=== PATIENT | female | born 2000 | race Caucasian/White ===

== ENCOUNTER 2022-05-31 10:12 | Outpatient (CLI) | payer BC, SELFPAY ==
[2022-05-31 13:38] LABS: Iron* 104 ug/dL (37-170)
[2022-05-31 13:46] LABS: Basophils Absolute Auto 0.04 K/uL (0.00-0.30); Basophils Percent Auto 0.6 % (0.0-3.0); Eosinophils Absolute Auto 0.09 K/uL (0.00-0.50); Eosinophils Percent Auto 1.4 % (0.0-7.0); Hematocrit 44.5 % (33.0-51.0); Hemoglobin* 14.7 gm/dL (12.0-16.0); Immature Granulocytes Abs Auto 0.01 K/uL (0.00-0.30); Lymphocytes Absolute Auto 1.75 K/uL (0.90-2.90); Lymphocytes Percent Auto 27.1 % (20-44); Mean Corpuscular HGB Conc 33 gm/dL (32-36); Mean Corpuscular Hemoglobin 28 pg (26-34); Mean Corpuscular Volume 86 fL (80-100); Monocytes Percent Auto 6.2 % (0.0-11.0); Neutrophils Absolute Auto 4.17 K/uL (1.7-7.0); Neutrophils Percent Auto 64.5 % (42.0-72.0); Platelet Count* 291 K/uL (140-440); RDW Coefficient of Variation % 12.1 % (11.5-15.5); White Blood Count* 6.46 K/uL (4.50-11.00)
[2022-05-31 13:48] LABS: Percent Iron Saturation 23 % (20-50); Total Iron Binding Capacity 450 ug/dL (265-497)
[2022-05-31 13:53] LABS: Slide Review Reflex No
== END 2022-05-31 10:13 | disposition home or self-care (01) ==
PROVIDERS: PCP Nurse Practitioner Family; Visit Provider Nurse Practitioner Family
DX: R53.83 Other fatigue (principal); M25.562 Pain in left knee
CPT/HCPCS: 36415; 83540; 83550; 84443; 85025

== ENCOUNTER 2022-07-30 20:08 | Emergency (ER) | payer BC, SELFPAY ==
[2022-07-30 20:30] VITALS: BP 116/78; PULSE 89; RESP 18; TEMP 36.6; O2SAT 99
[2022-07-30 20:45] VITALS: O2SAT 99
[2022-07-30] MEDS: 0.9 % SODIUM CHLORIDE 1000 ml 1,000 ML IV (21:00)
--- NOTE | 2022-07-30 21:13 | ED.GENADULT ---
HPI - General Adult General Chief complaint: Diarrhea Stated complaint: Blood in Stool Time Seen by Provider: 07/30/22 20:57 History of Present Illness HPI narrative: 21-year-old woman presenting to the emergency department with her mother, father in the waiting room, with concern of bloody stool. She has had the amount of blood she says that would be atypical for a hemorrhoid or maybe an anal fissure. Painless. This occurred about 3 hours prior to this interview. Not reporting lightheadedness shortness of breath. Was evaluated in Urgent Care and directed here. Was seen yesterday in clinic for some medication adjustments related to anxiety and insomnia I believe. At that time she also noted persistent abdominal bloating. There is a chronic IBS-type history is being referred to GI. Years ago she did have severe GERD. She continues on pantoprazole. She has a history of bloating with anything she eats. Notes her stomach to be pretty tight following ingestion of any food. She also ruefully notes that she does like to eat. Apparently in clinic was thought to possibly be constipated but she denies that. Normal bowel movements. She often has 4-5 a day. Today she had produced a few normal ?turds? and then there was a gush of blood as if she was peeing blood from her butt. Upon wiping then though there was not any blood there again she says like one might expect if it was hemorrhoidal bleeding. Also since last night she really has been having trouble urinating. Thought to be retaining. Spending time and straining and not getting any urine out. Therefore does not describe any dysuria or frequency. She has not had any fever. Is having some low abdominal pain/cramping. No fever. Family history without inflammatory bowel disorders Related Data Home Medications Medication Instructions Recorded Confirmed albuterol sulfate 90 mcg/actuation g inhalation 05/31/22 07/30/22 aerosol inhaler (Ventolin HFA) atomoxetine 100 mg capsule 100 mg PO QAM 05/31/22 07/30/22 cholecalciferol (vitamin D3) 50 50 mcg PO QDAY 05/31/22 07/30/22 mcg (2,000 unit) capsule escitalopram oxalate 20 mg tablet 20 mg PO 05/31/22 07/30/22 etonogestrel 68 mg subdermal 1 implant subdermal ONCE 05/31/22 07/30/22 implant (Nexplanon) fluticasone propionate 50 applicator inhalation 05/31/22 07/30/22 mcg/actuation blister powder for inhalation (Flovent Diskus) pantoprazole 40 mg tablet,delayed 40 mg PO QAM 06/28/22 07/30/22 release Previous Rx's Medication Instructions Recorded levothyroxine 100 mcg tablet 100 mcg PO QDAY 90 days #90 tabs 06/28/22 propranolol 60 mg capsule,24 60 mg PO ONCE 90 days #90 caps 07/16/22 hr,extended release mirtazapine 30 mg tablet (Remeron) 30 mg PO QDAY 30 days #30 tabs 07/29/22 Allergies Allergy/AdvReac Type Severity Reaction Status Date / Time bee venom protein (honey bee) Allergy Unknown Verified 07/29/22 11:12 latex Allergy Unknown Verified 07/29/22 11:12 influenza virus vacc AdvReac Verified 07/29/22 11:12 trivalent, who Review of Systems Status of ROS: Reports: 10 or more systems reviewed and unremarkable except as noted in History and below [facility] Medical History ADD (attention deficit disorder) ADHD Anxiety Congenital hypothyroidism Constipation Fatigue GERD (gastroesophageal reflux disease) Left knee pain Tachycardia Surgical History Asthma H/O hand surgery Social History Narrative: Single. No children. Non-smoker. No alcohol. No illicit drug use. Smoking Status: Never smoker Do you use any of these nicotine containing products: None Second hand tobacco smoke exposure: No How often do you have a drink containing alcohol: never How often do you have six or more drinks on one occasion: Never AUDIT-C Alcohol total score: 0 Non-prescribed substance use: denies use Little interest or pleasure in doing things: not at all Feeling down, depressed, or hopeless: not at all Exam Narrative: Exam Narrative: Pleasant. Maximo in conversation. No distress. Cranial nerves 2-12 intact Skin is warm and dry. Extremities are well perfused moving them all without difficulty and no peripheral edema. Lungs are clear. Cardiovascular with regular rate and rhythm Abdomen is soft. She is sore across the low abdomen suprapubic area really but a little more so in the left pelvic/adnexal area. No peritoneal signs. We discussed /perineal/anal exam but ultimately she preferred to follow this up in primary care. She is not having any active bleeding at this point or sense/need to have a bowel movement. Const: Vital Signs, click to edit/add: Vital Signs - 24 hr 07/30/22 20:30 07/31/22 01:15 07/31/22 01:15 Temperature 97.9 F 97.9 F 97.9 F Pulse Rate [Right Pulse Oximeter] 89 85 85 Respiratory Rate 18 18 18 Blood Pressure [Ri ght Upper Arm] 116/78 123/74 123/74 Pulse Oximetry 99 99 Oxygen Delivery Me thod Room Air Room Air 07/30/22 22:30 07/31/22 00:00 07/30/22 20:45 Temperature Pulse Rate [Right Pulse Oximeter] 80 79 Respiratory Rate 18 18 Blood Pressure [Ri ght Upper Arm] 118/70 125/74 Pulse Oximetry 99 99 99 Oxygen Delivery Me thod Room Air Room Air Documenting provider has reviewed patient's vital signs: yes Course Course Hospital Course: IV was established. Did receive normal saline. Did not require any other interventions. Reevaluation(s) Reevaluation #1: Continued generally well Vital Signs Vital signs: Initial Vital Signs Temperature 97.9 F 07/30/22 20:30 Temperature Source Temporal Artery Scan 07/30/22 20:30 Pulse Rate 89 07/30/22 20:30 Respiratory Rate 18 07/30/22 20:30 Blood Pressure 116/78 07/30/22 20:30 Blood Pressure Mean 90 07/30/22 20:30 Blood Pressure Position Sitting 07/30/22 20:30 Pulse Oximetry 99 07/30/22 20:30 Oxygen Delivery Method 07/30/22 20:30 Vital Signs Temperature 97.9 F 07/30/22 20:30 Pulse Rate 89 07/30/22 20:30 Respiratory Rate 18 07/30/22 20:30 Blood Pressure 116/78 07/30/22 20:30 Pulse Oximetry 99 07/30/22 20:30 Oxygen Delivery Method 07/30/22 20:30 Temperature 97.9 F 07/31/22 01:15 Pulse Rate 85 07/31/22 01:15 Respiratory Rate 18 07/31/22 01:15 Blood Pressure 123/74 07/31/22 01:15 Pulse Oximetry 99 07/31/22 01:15 Oxygen Delivery Method 07/31/22 01:15 Medical Decision Making MDM Narrative Medical decision making narrative: Senna could be multiple things going on here. History complicated by bowel symptoms. The bleeding does not appear to have continued. Has been straining in the form of efforts urination. CBC with white count a little bit elevated at 14.6. Hemoglobin reassuring this this is only 1 measurement. Urinalysis cloudy with lysed blood. Only small amount of urine was produced. Would note that postvoid bladder scan for 19 mL. Diverticular bleed still in differential with history of constipation though she denies constipation at this time. May be separate from presentation not distinct from ureteral colic as well. My review of CT IV contrast appears to show some edematous change in the uterus. Radiology over-read noting adenomyosis as differential in the lower uterine segment. Otherwise unremarkable. Surely the uterine symptoms do not explain the rectal bleeding but could explain the pelvic discomfort I suppose. Claudia does not have menses but checks regularly. Has Nexplanon. Lab Data Labs: Lab Results 07/30/22 07/30/22 07/30/22 Range/Units 21:00 21:00 21:00 WBC 14.62 H (4.50-11.00) K/uL RBC 5.10 (4.00-5.20) m/uL Hgb 14.5 (12.0-16.0) gm/dL Hct 43.8 (33.0-51.0) % MCV 86 (80-100) fL MCH 28 (26-34) pg MCHC 33 (32-36) gm/dL RDW Coeff of Sharath 12.5 (11.5-15.5) % Plt Count 283 (140-440) K/uL Neut % (Auto) 80.8 H (42.0-72.0) % Lymph % (Auto) 13.3 L (20-44) % [place] % (Auto) 5.1 (0.0-11.0) % Eos % (Auto) 0.4 (0.0-7.0) % Baso % (Auto) 0.2 (0.0-3.0) % Neut # (Auto) 11.80 H (1.7-7.0) K/uL Lymph # (Auto) 1.90 (0.90-2.90) K/uL [place] # (Auto) 0.70 (0.00-0.90) K/UL Eos # (Auto) 0.10 (0.00-0.50) K/uL Baso # (Auto) 0.00 (0.00-0.30) K/uL Abs Immat Gran (auto) 0.03 (0.00-0.30) K/uL INR 0.97 (0.91-1.10) APTT 28 (23-33) Seconds Sodium 141 (135-149) mmol/L Potassium 3.8 (3.6-5.1) mmol/L Chloride 106 (96-114) mmol/L Carbon Dioxide 24 (20-32) mmol/L BUN 15 (5-24) mg/dL Creatinine 0.7 (0.5-1.5) mg/dL Estimated GFR 127 ml/min Glucose 116 H (60-115) mg/dL Calcium 9.2 (8.4-10.6) mg/dL Total Bilirubin 0.4 (0.1-1.5) mg/dL Direct Bilirubin 0.3 (0.0-0.5) mg/dL AST 23 (12-35) U/L ALT 11 (4-35) U/L Alkaline Phosphatase 69 (40-150) U/L C-Reactive Protein < 0.5 L (0.5-1.0) mg/dL Total Protein 8.0 (6.0-8.3) g/dL Albumin 4.7 (3.3-5.0) g/dL HCG, Qual (Negative) Urine Color (Yellow) Urine Appearance (Clear) Urine pH (5.0-8.5) Ur Specific [place] (1.000-1.030) Urine Protein (Negative) Urine Glucose (UA) (Negative) Urine Ketones (Negative) Urine Blood (Negative) Urine Nitrite (Negative) Urine Bilirubin (Negative) Urine Urobilinogen (0.2-1.0) Ur Leukocyte Esterase (Negative) Urine RBC (0-2) Urine WBC (0-5) Ur Squamous Epith Cells (None-Few) Urine Bacteria (None) 07/30/22 Range/Units 21:50 WBC (4.50-11.00) K/uL RBC (4.00-5.20) m/uL Hgb (12.0-16.0) gm/dL Hct (33.0-51.0) % MCV (80-100) fL MCH (26-34) pg MCHC (32-36) gm/dL RDW Coeff of Sharath (11.5-15.5) % Plt Count (140-440) K/uL Neut % (Auto) (42.0-72.0) % Lymph % (Auto) (20-44) % [place] % (Auto) (0.0-11.0) % Eos % (Auto) (0.0-7.0) % Baso % (Auto) (0.0-3.0) % Neut # (Auto) (1.7-7.0) K/uL Lymph # (Auto) (0.90-2.90) K/uL [place] # (Auto) (0.00-0.90) K/UL Eos # (Auto) (0.00-0.50) K/uL Baso # (Auto) (0.00-0.30) K/uL Abs Immat Gran (auto) (0.00-0.30) K/uL INR (0.91-1.10) APTT (23-33) Seconds Sodium (135-149) mmol/L Potassium (3.6-5.1) mmol/L Chloride (96-114) mmol/L Carbon Dioxide (20-32) mmol/L BUN (5-24) mg/dL Creatinine (0.5-1.5) mg/dL Estimated GFR ml/min Glucose (60-115) mg/dL Calcium (8.4-10.6) mg/dL Total Bilirubin (0.1-1.5) mg/dL Direct Bilirubin (0.0-0.5) mg/dL AST (12-35) U/L ALT (4-35) U/L Alkaline Phosphatase (40-150) U/L C-Reactive Protein (0.5-1.0) mg/dL Total Protein (6.0-8.3) g/dL Albumin (3.3-5.0) g/dL HCG, Qual Negative (Negative) Urine Color Yellow (Yellow) Urine Appearance Cloudy A (Clear) Urine pH 5.5 (5.0-8.5) Ur Specific [place] >= 1.030 (1.000-1.030) Urine Protein Negative (Negative) Urine Glucose (UA) Negative (Negative) Urine Ketones Negative (Negative) Urine Blood Trace-lysed A (Negative) Urine Nitrite Negative (Negative) Urine Bilirubin Negative (Negative) Urine Urobilinogen 0.2 (0.2-1.0) Ur Leukocyte Esterase Negative (Negative) Urine RBC 0-2 (0-2) Urine WBC 0-2 (0-5) Ur Squamous Epith Cells Few (None-Few) Urine Bacteria Few A (None) Discharge Plan Discharge Clinical Impression: Adenomyosis of uterus, Hematochezia Patient Disposition: Home w/ Parent or Adult Condition: Stable Additional Instructions: Continue to focus on hydration Return for marked increase in persistent pain, increasing bleeding, associated lightheadedness/shortness of breath. Yes, sounds like it is time to schedule with Gastroenterology. Follow up in primary care or Obgyn to discuss what you might like to do about what appears to be adenomyosis of your uterus and whether this might be contributing to some of your symptoms. Prescriptions: No Action escitalopram oxalate 20 mg tablet 20 mg PO atomoxetine 100 mg capsule 100 mg PO QAM Flovent Diskus 50 mcg/actuation blister with device inhalation albuterol sulfate [Ventolin HFA] 90 mcg/actuation HFA aerosol inhaler inhalation Nexplanon 68 mg implant 1 implant subdermal ONCE Rx Instructions: as a single dose cholecalciferol (vitamin D3) 50 mcg (2,000 unit) capsule 50 mcg PO QDAY pantoprazole 40 mg tablet,delayed release (DR/EC) 40 mg PO QAM levothyroxine 100 mcg tablet 100 mcg PO QDAY 90 Days Qty: 90 3RF mirtazapine [Remeron] 30 mg tablet 30 mg PO QDAY 30 Days Qty: 30 1RF propranolol 60 mg capsule,extended release 24 hr 60 mg PO ONCE 90 Days Qty: 90 3RF Follow Up/Referrals: Yoli Mendes, COMMERCIAL CREDIT REVIEWER, FLIGHT HOSTESS [Primary Care Provider] - Stand Alone Forms: Relatient Info Instructions
[2022-07-30 21:23] LABS: Basophils Percent Auto 0.2 % (0.0-3.0); Eosinophils Percent Auto 0.4 % (0.0-7.0); Hematocrit 43.8 % (33.0-51.0); Hemoglobin* 14.5 gm/dL (12.0-16.0); Immature Granulocytes Abs Auto 0.03 K/uL (0.00-0.30); Lymphocytes Percent Auto 13.3 % (20-44); Mean Corpuscular HGB Conc 33 gm/dL (32-36); Mean Corpuscular Hemoglobin 28 pg (26-34); Mean Corpuscular Volume 86 fL (80-100); Monocytes Percent Auto 5.1 % (0.0-11.0); Neutrophils Percent Auto 80.8 % (42.0-72.0); Platelet Count* 283 K/uL (140-440); RDW Coefficient of Variation % 12.5 % (11.5-15.5); Slide Review Reflex No; White Blood Count* 14.62 K/uL (4.50-11.00)
--- OUTSIDE RECORDS SUMMARY | 2022-07-30 21:35 | XMS_ITS | Clinical Summary ---
:2000 Author Organization [facility] [place] [address] Care Team Providers Name Role Phone Jose oJhnson MD Primary Care Provider Allergies Active Allergy Reactions Severity Noted Date Comments Latex Rash Medium 08/22/2020 Venom-Honey Bee Anaphylaxis High 07/18/2019 Medications Not on file Active Problems Problem Noted Date Anxiety state, unspecified 06/09/2007 Attention deficit disorder with hyperactivity(314.01) 06/09/2007 Unspecified disturbance of conduct 06/09/2007 Social History Tobacco Use Types Packs/Day Years Used Date Never Assessed Sex Assigned at Date Recorded Not on file Last Filed Vital Signs Vital Sign Reading Time Taken Comments Blood Pressure - - Pulse 112 11/13/2021 1:51 PM CSR 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 Temperature 37.1 ??C (98.8 ??F) 11/13/2021 1:51 PM CSR TECHNICIAN Respiratory Rate - - Oxygen Saturation 99% 11/13/2021 1:51 PM CSR TECHNICIAN Inhaled Oxygen Concentration - - Weight - - Height - - Body Mass Index - - Plan of Treatment Health Maintenance Due Date Last Done Comments Well Child Check for age 3-20 07/03/2004 HPV series for age 9-26 (1 - 2012 2-dose series) Tdap 2012 Depression screening for age 0908/03/2013 12+ Chlamydia for age 16-24 2017 BMI (ht and wt on same day) 2019 for age 18+ Hepatitis C screening for age 0908/03/2019 18-79 Tetanus booster 2021 COVID-19 vaccine series (3 - 08/20/2021 03/20/2021, Booster for Moderna series) 02/20/2021 Influenza for age 9-49 07/15/2022 Meningococcal series for age Aged Out No longer eligible based 11-21 on patient's age to complete this to pic Results Not on filefrom Last 3 Months Insurance Payer Benefit Plan / Subscriber ID Effective Dates Phone Addre ss Type Group [employer] HP [id number] Effective for PO VIRIDIANA X 5200 all dates KAYLIN HEBERT [id number] Care Teams Slat Basket Maker Machine Relationship Specialty Start Date End Date Jose Johnson MD PCP - General 05/12/[address] [place] [address] [phone]
[2022-07-30 21:36] LABS: Albumin* 4.7 g/dL (3.3-5.0); Chloride* 106 mmol/L (96-114)
[2022-07-30 21:37] LABS: INR 0.97 (0.91-1.10); Partial Thromboplastin Time* 28 Seconds (23-33); Potassium* 3.8 mmol/L (3.6-5.1); Prothrombin Time 13.3 Seconds; Sodium* 141 mmol/L (135-149)
[2022-07-30 21:39] LABS: Aspartate Amino Transferase* 23 U/L (12-35); Bilirubin Direct* 0.3 mg/dL (0.0-0.5); Bilirubin Total* 0.4 mg/dL (0.1-1.5); Carbon Dioxide* 24 mmol/L (20-32); Creatinine* 0.7 mg/dL (0.5-1.5); Estimated Glomerular Filt Rate 127 ml/min
[2022-07-30 21:40] LABS: Alanine Aminotransferase* 11 U/L (4-35); Alkaline Phosphatase* 69 U/L (40-150); Blood Urea Nitrogen* 15 mg/dL (5-24); Calcium* 9.2 mg/dL (8.4-10.6); Glucose* 116 mg/dL (60-115)
[2022-07-30 21:43] LABS: C Reactive Protein* < 0.5 mg/dL (0.5-1.0)
[2022-07-30 22:13] LABS: HCG Qualitative* Negative (Negative)
[2022-07-30 22:30] VITALS: BP 118/70; PULSE 80; RESP 18; O2SAT 99
[2022-07-30 22:38] LABS: Appearance Urine Cloudy (Clear); Bilirubin Urine Negative (Negative); Blood Urine Trace-lysed (Negative); Color Urine Yellow (Yellow); Glucose Urine Negative (Negative); Ketones Urine Negative (Negative); Leukocyte Esterase Urine Negative (Negative); Nitrite Urine Negative (Negative); Protein Urine Negative (Negative); Specific Gravity Urine >= 1.030 (1.000-1.030); Urobilinogen Urine 0.2 (0.2-1.0); pH Urine 5.5 (5.0-8.5)
[2022-07-30 22:46] LABS: Bacteria Urine Few; RBC Urine 0-2 (0-2); Squamous Epithelial Cell Urine Few (None-Few); WBC Urine 0-2 (0-5)
--- NOTE | 2022-07-30 23:08 | CRLHL7_ITS ---
For Patients: As a result of the Century Cures Act, medical imaging exams and procedure reports are released immediately into your electronic medical record. You may view this report before your referring provider. If you have questions, please contact your health care provider. INDICATION: Bloody stool. TECHNIQUE: CT abdomen and pelvis acquired with 83 cc Isovue 370 IV contrast. COMPARISON: None. FINDINGS: Lower chest: Unremarkable. Liver: Focal fatty infiltration adjacent to the falciform ligament. No suspicious masses. Gallbladder and bile ducts: Unremarkable. No stones or inflammation. No biliary ductal dilatation. Spleen: Unremarkable. Normal in size. No masses. Adrenal glands: Unremarkable. No nodules. Pancreas: Unremarkable. No mass or inflammation. Kidneys: Unremarkable. No suspicious masses, stones, or hydronephrosis. GI tract: Unremarkable. Normal in caliber. No sign of mass or inflammation. Normal appendix. Lymph nodes: No lymphadenopathy. Vasculature: Unremarkable. Omentum/Peritoneum/Abdominal Wall: Unremarkable. No sign of mass or infiltration. No free air or significant free fluid. Pelvis: Patchy low-attenuation involving the lower uterine segment. No pelvic masses. Bones: Unremarkable for age. IMPRESSION: 1. No acute abdominal or pelvic abnormality. 2. Patchy low-attenuation involving the lower uterine segment, nonspecific. Adenomyosis would be a differential consideration. Please note that all CT scans at this facility use dose modulation, iterative reconstruction, and/or weight-based dosing when appropriate to reduce radiation dose to as low as reasonably achievable. Dictated by Jomar Munson MD @ 07/31/2022 12:28:23 AM (Electronically Signed)
[2022-07-31] VITALS: BP 125/74; PULSE 79; RESP 18; O2SAT 99
[2022-07-31 01:15] VITALS: BP 123/74; PULSE 85; RESP 18; TEMP 36.6; O2SAT 99
== END 2022-07-31 01:16 | disposition home or self-care (01) ==
PROVIDERS: Emergency Provider Family Medicine; PCP Nurse Practitioner Family
DX: K92.1 Melena (principal); N80.0 Endometriosis of uterus
CPT/HCPCS: 36415; 74177; 76857; 80048; 80076; 81001; 84703; 85025; 85610; 85730; 86140; 87086; 94761; 96360; 99284; J7030; Q9967

== ENCOUNTER 2022-08-09 14:42 | Outpatient (CLI) | payer BC, SELFPAY ==
--- OUTSIDE RECORDS SUMMARY | 2022-08-09 14:44 | XMS_ITS | Clinical Summary ---
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 Temperature 37.1 ??C (98.8 ??F) 11/13/2021 1:51 PM ASSISTANT ASSOCIATE PROFESSOR Respiratory Rate - - Oxygen Saturation 99% 11/13/2021 1:51 PM ASSISTANT ASSOCIATE PROFESSOR Inhaled Oxygen Concentration - - Weight - - Height - - Body Mass Index - - Plan of Treatment Health Maintenance Due Date Last Done Comments HPV series for age 9-26 (1 - 2012 2-dose series) Tdap 2012 Depression screening for age 0908/03/2013 12+ Chlamydia for age 16-24 2017 BMI (ht and wt on same day) 2019 for age 18+ Hepatitis C screening for age 0908/03/2019 18-79 Tetanus booster 2021 COVID-19 vaccine series (3 - 08/20/2021 03/20/2021, Booster for Moderna series) 02/20/2021 Influenza for age 9-49 07/15/2022 Pap test for age 21-65 2022 Meningococcal series for age Aged Out No longer eligible based 11- on patient's age to complete this to pic Results Not on filefrom Last 3 Months Insurance Payer Benefit Plan / Subscriber ID Effective Dates Phone Addre ss Type Group [employer] HP [id number] Effective for PO VIRIDIANA X [id number] all dates KAYLIN HEBERT [id number] Care Teams Machine Maintenance Servicer Relationship Specialty Start Date End Date Jose Johnson MD PCP - General 05/12/[address] [place] [phone]
--- NOTE | 2022-08-09 15:00 | CRLHL7_ITS ---
For Patients: As a result of the Century Cures Act, medical imaging exams and procedure reports are released immediately into your electronic medical record. You may view this report before your referring provider. If you have questions, please contact your health care provider. INDICATION: Low-attenuation and CT, possible adenomyosis COMPARISON: CT 07/30/2022 TECHNIQUE: 2D rivera scale and color Doppler images were acquired of the pelvis using a transabdominal and transvaginal approach. FINDINGS: Sonographic images demonstrate a normal size and smooth outer contour of the uterus. Uterus measures 7.9 cm in length by 4.1 cm in AP diameter by 5.3 cm in transverse dimension. The myometrium has a normal uniform echotexture. The endometrial lining measures 2 mm in composite thickness. The right ovary measures 4.5 x 2.4 x 2.4 cm in size and the left ovary measures 2.6 x 1.3 x 1.6 cm. Incidental follicle right ovary measuring 1.6 x 1.0 x 1.6 cm. The ovaries demonstrate normal arterial and venous blood flow on color Doppler analysis. There are no suspicious fluid collections within the cul-de-sac. IMPRESSION: Normal pelvic ultrasound. Normal appearance of the endometrium. No evidence of adenomyosis. Dictated by Ramu Cornell MD @ 08/10/2022 12:07:06 PM (Electronically Signed)
== END 2022-08-09 14:43 | disposition home or self-care (01) ==
LOC: US 14:42
PROVIDERS: PCP Nurse Practitioner Family; Visit Provider Nurse Practitioner Family
DX: R94.8 Abnormal results of function studies of other organs and systems (principal)
CPT/HCPCS: 76830; 76856; 76857

== ENCOUNTER 2022-12-27 10:33 | Emergency (ER) | payer BC, SELFPAY ==
[2022-12-27 10:42] VITALS: BP 125/77; PULSE 86; RESP 20; TEMP 36.3; O2SAT 99
--- NOTE | 2022-12-27 12:01 | ED_ITS ---
HPI - Abdominal Pain General Chief Complaint: Abdominal Pain Stated Complaint: Upper abdominal pain, nausea Time Seen by Provider: 12/27/22 11:33 History of Present Illness HPI narrative: This 22-year-old female comes in reporting upper epigastric pain for the past 5 days or so. She states the pain is constant and sometimes increases significantly. She does report her pain at around 8/10 in severity. She states that she can tolerate food but it seems to be worse when taking food. She does take pantoprazole a for reflux symptoms but states that this pain is more down in her upper abdomen. She denies having any fevers or diarrhea. She has had some nausea but no vomiting. Related Data Home Medications Medication Instructions Recorded Confirmed albuterol sulfate 90 mcg/actuation g inhalation PRN 05/31/22 12/03/22 aerosol inhaler (Ventolin HFA) atomoxetine 100 mg capsule 100 mg PO QAM 05/31/22 12/27/22 cholecalciferol (vitamin D3) 50 50 mcg PO QDAY 05/31/22 12/27/22 mcg (2,000 unit) capsule escitalopram oxalate 20 mg tablet 20 mg PO DAILY 05/31/22 12/27/22 etonogestrel 68 mg subdermal 1 implant subdermal ONCE 05/31/22 12/27/22 implant (Nexplanon) fluticasone propionate 50 2 inh inhalation PRN 09/14/22 12/03/22 mcg/actuation blister powder for inhalation (Flovent Diskus) buspirone 10 mg tablet 10 mg PO BID 10/26/22 12/27/22 Previous Rx's Medication Instructions Recorded levothyroxine 100 mcg tablet 100 mcg PO QDAY 90 days #90 tabs 06/28/22 propranolol 60 mg capsule,24 60 mg PO ONCE 90 days #90 caps 07/16/22 hr,extended release lidocaine 4 % topical cream 1 applic topical TID 7 days #15 09/14/22 grams clonazepam 0.5 mg tablet 0.25 - 1 mg PO BID PRN anxiety #20 10/26/22 tabs pantoprazole 40 mg tablet,delayed 40 mg PO QAM 90 days #90 tabs 12/07/22 release ketorolac 10 mg tablet 10 mg PO Q8H 5 days #15 tabs 12/27/22 ondansetron 4 mg disintegrating 4 mg PO Q6H #20 tabs 12/27/22 tablet pantoprazole 40 mg tablet,delayed 40 mg PO DAILY #20 tabs 12/27/22 release Allergies Allergy/AdvReac Type Severity Reaction Status Date / Time bee venom protein (honey bee) Allergy Unknown Verified 12/27/22 10:46 latex Allergy Unknown Verified 12/27/22 10:46 influenza virus vacc AdvReac Verified 12/27/22 10:46 trivalent, who Review of Systems Status of ROS Reports: 10 or more systems reviewed and unremarkable except as noted in History and below Narrative Constitutional: No fevers, no weight gain or loss. Eyes: No discharge. No vision changes. HENT: No congestion, no sore throat, no ear pain. Cardiovascular: No chest pain, no palpitations. Respiratory: No shortness of breath, no wheezes, no cough. Gastrointestinal: No vomiting, no diarrhea. Upper epigastric abdominal pain. Nausea. Genitourinary: No dysuria, no hematuria. Musculoskeletal: Normal range of motion. Skin: No rashes, no pruritis. Neurological: No dizziness, weakness, sensory change, speech change. Endo/Heme/Allergies: No bruising or bleeding. No polydipsia. Pysch: no suicidality, no anxiety, no insomnia. All other systems reviewed and are negative. [facility] Medical History (Updated 12/27/22 @ 13:24 by Tulio Hartmann MD) ADD (attention deficit disorder) ADHD Anxiety Asthma Congenital hypothyroidism Constipation Depression Fatigue GERD (gastroesophageal reflux disease) Left knee pain Tachycardia Surgical History (Updated 08/16/22 @ 17:27 by Rosette Weaver PA-C) H/O hand surgery Family History (Updated 08/16/22 @ 17:28 by Rosette Weaver PA-C) Family/Other Stroke Father High blood pressure Mother Osteoporosis Family/Other Cancer Social History Narrative: Single. No children. Non-smoker. No alcohol. No illicit drug use. Smoking Status: Never smoker Do you use any of these nicotine containing products: None Second hand tobacco smoke exposure: No How often do you have a drink containing alcohol: 2-4 times a month How often do you have six or more drinks on one occasion: Never AUDIT-C Alcohol total score: 2 Non-prescribed substance use: denies use Little interest or pleasure in doing things: not at all Feeling down, depressed, or hopeless: not at all service: No Exam Narrative: Exam Narrative: Constitutional: Well-developed, well-nourished, no acute distress. HEENT: Normocephalic, atraumatic. Neck: Normal range of motion. Nontender. Supple. Heart: Regular. No murmurs. Normal rate. Intact distal pulses. Lungs: Clear to auscultation. No chest discomfort. No wheezes, rhonchi, or rales. Abdomen: Normal bowel sounds. Tenderness in the upper epigastric region. No rebound tenderness. Genitalia: Deferred. Back: No midline tenderness. Normal range of motion. Extremities: Normal range of motion. No injury. Skin: Intact. No rash. Warm. No erythema or pallor. Neurologic: No altered sensation. No weakness. Alert and oriented. Psychiatric: No suicidality. No anxiety or depression. No insomnia. Nursing notes and vitals signs are reviewed. Const: Vital Signs, click to edit/add: Vital Signs - 24 hr 12/27/22 10:42 Temperature 97.4 F L Pulse Rate [Pulse Oximeter] 86 Respiratory Rate 20 Blood Pressure [Ri ght Upper Arm] 125/77 Pulse Oximetry 99 Oxygen Delivery Me thod Room Air Course Vital Signs Vital signs: Initial Vital Signs Temperature 97.4 F L 12/27/22 10:42 Temperature Source Temporal Artery Scan 12/27/22 10:42 Pulse Rate 86 12/27/22 10:42 Pulse Rhythm 12/27/22 10:42 Respiratory Rate 20 12/27/22 10:42 Blood Pressure 125/77 12/27/22 10:42 Blood Pressure Mean 93 12/27/22 10:42 Pulse Oximetry 99 12/27/22 10:42 Oxygen Delivery Method 12/27/22 10:42 Vital Signs Temperature 97.4 F L 12/27/22 10:42 Pulse Rate 86 12/27/22 10:42 Respiratory Rate 20 12/27/22 10:42 Blood Pressure 125/77 12/27/22 10:42 Pulse Oximetry 99 12/27/22 10:42 Oxygen Delivery Method 12/27/22 10:42 Temperature 97.4 F L 12/27/22 10:42 Pulse Rate 86 12/27/22 10:42 Respiratory Rate 20 12/27/22 10:42 Blood Pressure 125/77 12/27/22 10:42 Pulse Oximetry 99 12/27/22 10:42 Oxygen Delivery Method 12/27/22 10:42 MDM - Abdominal Pain MDM Narrative Medical decision making narrative: This patient comes in with upper epigastric abdominal pain. Bedside point of care ultrasound of the right upper quadrant and upper abdomen show normal anatomy. I did discuss the role of CT imaging but this was declined in a process of shared decision making. Lab results returned with normal findings also. Her lipase and liver enzymes are normal. She has normal hemoglobin and white count. The patient did receive IV fluids and doses of Zofran 4 mg, Toradol 30 mg, and pantoprazole 40 mg. She also received a GI cocktail which brought relief significantly. This patient does take pantoprazole for reflux esophagitis and does not have any of those symptoms while on this medicine. It does seem that she has a gastritis. I advised her to increase the pantoprazole dose for 7-10 days. She received prescriptions also for Toradol and Zofran. I advised her to follow-up with her primary physician and consider upper endoscopy if not improving. Lab Data Labs: Lab Results 12/27/22 12/27/22 Range/Units 12:15 12:15 WBC 7.56 (4.50-11.00) K/uL RBC 4.91 (4.00-5.20) m/uL Hgb 14.1 (12.0-16.0) gm/dL Hct 41.9 (33.0-51.0) % MCV 85 (80-100) fL MCH 29 (26-34) pg MCHC 34 (32-36) gm/dL RDW Coeff of Sharath 12.6 (11.5-15.5) % Plt Count 267 (140-440) K/uL Neut % (Auto) 66.1 (42.0-72.0) % Lymph % (Auto) 25.9 (20-44) % Cavalier % (Auto) 6.5 (0.0-11.0) % Eos % (Auto) 1.1 (0.0-7.0) % Baso % (Auto) 0.3 (0.0-3.0) % Neut # (Auto) 5.00 (1.7-7.0) K/uL Lymph # (Auto) 1.96 (0.90-2.90) K/uL Cavalier # (Auto) 0.50 (0.00-0.90) K/UL Eos # (Auto) 0.08 (0.00-0.50) K/uL Baso # (Auto) 0.02 (0.00-0.30) K/uL Sodium 140 (135-149) mmol/L Potassium 3.9 (3.6-5.1) mmol/L Chloride 106 (96-114) mmol/L Carbon Dioxide 25 (20-32) mmol/L BUN 10 (5-24) mg/dL Creatinine 0.7 (0.5-1.5) mg/dL Estimated GFR 126 ml/min Glucose 104 (60-115) mg/dL Calcium 9.6 (8.4-10.6) mg/dL Total Bilirubin 0.8 (0.1-1.5) mg/dL Direct Bilirubin 0.1 (0.0-0.5) mg/dL AST 20 (12-35) U/L ALT 15 (4-35) U/L Alkaline Phosphatase 51 (40-150) U/L Total Protein 8.4 H (6.0-8.3) g/dL Albumin 5.0 (3.3-5.0) g/dL Lipase 52 (23-300) U/L Discharge Plan Discharge Clinical Impression: Gastritis Patient Disposition: Home, Self-Care Condition: Improved Additional Instructions: Take medication as needed and indicated. Increase pantoprazole to 40 mg twice a day for 7-10 days. If symptoms are persistent consider endoscopy or return to the emergency department if worsening. Prescriptions: New pantoprazole 40 mg tablet,delayed release (DR/EC) 40 mg PO DAILY Qty: 20 2RF ketorolac 10 mg tablet 10 mg PO Q8H 5 Days Qty: 15 0RF ondansetron 4 mg tablet,disintegrating 4 mg PO Q6H Qty: 20 0RF No Action escitalopram oxalate 20 mg tablet 20 mg PO DAILY atomoxetine 100 mg capsule 100 mg PO QAM albuterol sulfate [Ventolin HFA] 90 mcg/actuation HFA aerosol inhaler inhalation PRN Nexplanon 68 mg implant 1 implant subdermal ONCE Rx Instructions: as a single dose cholecalciferol (vitamin D3) 50 mcg (2,000 unit) capsule 50 mcg PO QDAY Flovent Diskus 50 mcg/actuation blister with device 2 inh inhalation PRN levothyroxine 100 mcg tablet 100 mcg PO QDAY 90 Days Qty: 90 3RF clonazepam 0.5 mg tablet 0.25 - 1 mg PO BID PRN (Reason: anxiety) Qty: 20 0RF buspirone 10 mg tablet 10 mg PO BID lidocaine 4 % cream 1 applic topical TID 7 Days Qty: 15 2RF propranolol 60 mg capsule,extended release 24 hr 60 mg PO ONCE 90 Days Qty: 90 3RF pantoprazole 40 mg tablet,delayed release (DR/EC) 40 mg PO QAM 90 Days Qty: 90 3RF Follow Up/Referrals: Yoli Mendes, [employer], 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
[2022-12-27 12:27] LABS: Basophils Absolute Auto 0.02 K/uL (0.00-0.30); Basophils Percent Auto 0.3 % (0.0-3.0); Eosinophils Absolute Auto 0.08 K/uL (0.00-0.50); Eosinophils Percent Auto 1.1 % (0.0-7.0); Hematocrit 41.9 % (33.0-51.0); Hemoglobin* 14.1 gm/dL (12.0-16.0); Immature Granulocytes Abs Auto 0.01 K/uL (0.00-0.30); Immature Granulocytes Pct Auto 0.1 %; Lymphocytes Absolute Auto 1.96 K/uL (0.90-2.90); Lymphocytes Percent Auto 25.9 % (20-44); Mean Corpuscular HGB Conc 34 gm/dL (32-36); Mean Corpuscular Hemoglobin 29 pg (26-34); Mean Corpuscular Volume 85 fL (80-100); Monocytes Percent Auto 6.5 % (0.0-11.0); Neutrophils Percent Auto 66.1 % (42.0-72.0); Platelet Count* 267 K/uL (140-440); RDW Coefficient of Variation % 12.6 % (11.5-15.5); Red Blood Count 4.91 m/uL (4.00-5.20); White Blood Count* 7.56 K/uL (4.50-11.00)
[2022-12-27 12:34] LABS: Slide Review Reflex No
[2022-12-27] MEDS: 0.9 % SODIUM CHLORIDE 1000 ml 1,000 ML IV (12:38)
[2022-12-27] MEDS: GI COCKTAIL (VISC LIDO/ANTACID) 30 ML PO (12:39)
[2022-12-27] MEDS: ONDANSETRON 2 MG/ML inj 4 MG IVP (12:40)
[2022-12-27] MEDS: KETOROLAC 30 MG/ML inj IVP (12:43)
[2022-12-27] MEDS: PANTOPRAZOLE SODIUM 40 MG INJ IVP (12:44)
[2022-12-27 12:52] LABS: Chloride* 106 mmol/L (96-114); Potassium* 3.9 mmol/L (3.6-5.1); Sodium* 140 mmol/L (135-149)
[2022-12-27 12:54] LABS: Creatinine* 0.7 mg/dL (0.5-1.5); Estimated Glomerular Filt Rate 126 ml/min
[2022-12-27 12:55] LABS: Alanine Aminotransferase* 15 U/L (4-35); Alkaline Phosphatase* 51 U/L (40-150); Aspartate Amino Transferase* 20 U/L (12-35); Bilirubin Direct* 0.1 mg/dL (0.0-0.5); Bilirubin Total* 0.8 mg/dL (0.1-1.5); Blood Urea Nitrogen* 10 mg/dL (5-24); Calcium* 9.6 mg/dL (8.4-10.6); Carbon Dioxide* 25 mmol/L (20-32); Glucose* 104 mg/dL (60-115); Lipase* 52 U/L (23-300); Total Protein* 8.4 g/dL (6.0-8.3)
== END 2022-12-27 13:34 | disposition home or self-care (01) ==
PROVIDERS: Emergency Provider Emergency Medicine Emergency Medical Services; PCP Nurse Practitioner Family
DX: K29.70 Gastritis, unspecified, without bleeding (principal)
CPT/HCPCS: 36415; 76705; 80048; 80076; 83690; 85025; 96374; 96375; 99284; A9270; C9113; J1885; J2405; J7030

== ENCOUNTER 2023-01-15 15:15 | Outpatient (CLI) | payer BC, SELFPAY | END 2023-01-15 15:16 | disposition home or self-care (01) | LOC: NFLDREF 01-22 08:15 | PROVIDERS: PCP Nurse Practitioner Family; Referring Provider Nurse Practitioner Family; Visit Provider Nurse Practitioner Family | DX: R11.0 Nausea (principal); R10.13 Epigastric pain | CPT/HCPCS: 87338 ==

== ENCOUNTER 2023-02-22 09:13 | Outpatient (CLI) | payer BC, SELFPAY ==
--- NOTE | 2023-02-22 12:00 | CRLHL7_ITS ---
For Patients: As a result of the 21st Century Cures Act, medical imaging exams and procedure reports are released immediately into your electronic medical record. You may view this report before your referring provider. If you have questions, please contact your health care provider. HISTORY: 23 year old female. Abdominal pain. TECHNIQUE: 5.4 millicuries of [id number] was injected intravenously. Images of the liver, gallbladder and abdomen were obtained in the anterior projection for 50 minutes. 1.4 mcg CCK was then administered intravenously and imaging was continued for an additional 30 minutes. FINDINGS: There is good uptake of activity by the hepatocytes. There is visualization of the biliary tree, gallbladder and small bowel. In response to CCK administration, there was a normal gallbladder ejection fraction of 87 percent by 30 minutes. The patient pain during the CCK portion of the examination, similar to her presenting symptoms. IMPRESSION: 1. There is no evidence of acute or chronic cholecystitis. 2. Normal gallbladder ejection fraction of 87 percent. Dictated by Nuno Briscoe MD @ 02/22/2023 11:17:40 AM (Electronically Signed)
== END 2023-02-22 09:14 | disposition home or self-care (01) ==
LOC: NM 09:14
PROVIDERS: PCP Nurse Practitioner Family; Visit Provider Nurse Practitioner Family
DX: R10.9 Unspecified abdominal pain (principal)
CPT/HCPCS: 78227; A9537; J2805

== ENCOUNTER 2023-06-03 15:20 | Outpatient (CLI) | payer BC, SELFPAY | END 2023-06-03 15:21 | disposition home or self-care (01) | PROVIDERS: PCP Nurse Practitioner Family; Visit Provider Nurse Practitioner Family | DX: E03.9 Hypothyroidism, unspecified (principal) | CPT/HCPCS: 84443 ==

== ENCOUNTER 2023-07-01 11:34 | Outpatient (CLI) | payer BC, SELFPAY ==
[2023-07-01 17:57] LABS: SARS PCR* Negative SARS-CoV-2 (Negative)
== END 2023-07-01 11:35 | disposition home or self-care (01) ==
PROVIDERS: PCP Nurse Practitioner Family; Visit Provider Nurse Practitioner Family
DX: R51.9 Headache, unspecified (principal); R42 Dizziness and giddiness
CPT/HCPCS: 85025; 85651; 86140; 87635

== ENCOUNTER 2023-09-26 11:25 | Outpatient (CLI) | payer MEDICAID, SELFPAY | END 2023-09-26 11:26 | disposition home or self-care (01) | LOC: KYNREF 11:25 | PROVIDERS: PCP Nurse Practitioner Family; Visit Provider Nurse Practitioner Family | DX: R23.3 Spontaneous ecchymoses (principal) | CPT/HCPCS: 85025 ==

== ENCOUNTER 2023-11-28 10:30 | Outpatient (CLI) | payer MEDICAID, SELFPAY ==
[2023-11-28 15:27] LABS: Chlamydia DNA Amplified* NOT DETECTED (No Detected); GC DNA Amplified* NOT DETECTED (No Detected)
== END 2023-11-28 10:31 | disposition home or self-care (01) ==
PROVIDERS: PCP Nurse Practitioner Family; Visit Provider Physician Assistant
DX: N89.8 Other specified noninflammatory disorders of vagina (principal); Z13.29 Encounter for screening for other suspected endocrine disorder; Z11.3 Encounter for screening for infections with a predominantly sexual mode of transmission
CPT/HCPCS: 84443; 87491; 87591

== ENCOUNTER 2024-01-26 08:43 | Outpatient (CLI) | payer BC, SELFPAY | END 2024-01-26 08:44 | disposition home or self-care (01) | PROVIDERS: PCP Nurse Practitioner Family; Visit Provider Nurse Practitioner Family | DX: R42 Dizziness and giddiness (principal) | CPT/HCPCS: 80048; 84443; 85025 ==

== ENCOUNTER 2024-02-23 17:58 | Emergency (ER) | payer BC, SELFPAY ==
[2024-02-23 18:05] VITALS: BP 142/90; PULSE 76; RESP 18; TEMP 37.2; O2SAT 100; BMI 25.1
--- NOTE | 2024-02-23 18:45 | XR_ITS ---
Patient: MARLENA DE LA ROSA Facility:?[facility] Patient ID:?[id number] Site Patient ID:?[id number]. Site :?[id number] Study:?XRay-Chest 2 VIEW-02/23/2024 7:04:51 PM Ordering Physician:GOOD Final Report: INDICATION: SOB. TECHNIQUE: Chest 2 views. COMPARISON: None. FINDINGS: Cardiovascular and mediastinum: Cardiomediastinal silhouette is within normal limits Lungs and pleural spaces: Lungs are clear. No sign of pleural effusion. No pneumothorax. Bones and soft tissues: No significant findings. IMPRESSION: No acute or significant findings. Dictated by Angel Henley MD @ 02/23/2024 7:24:17 PM Signed by:?Angel Henley MD @02/23/2024 7:24:17 PM (Electronic Signature)
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
--- OUTSIDE RECORDS SUMMARY | 2024-02-23 18:50 | XMS_ITS | Clinical Summary ---
Author Name Unknown Organization [email or web address] Address [address] [place] [id number] Care Team Providers Care Unbundler Name Role Phone Unavailable Primary Care Provider Unavailabl e Allergies Active Allergy Reactions Criticality Noted Date Comments Latex Rash Medium 08/22/2020 Venom-Honey Bee Anaphylaxis / Throat Swelling,Hives High 07/18/2019 Medications Medication Sig Dispensed Refills Start Date End Date Status dapsone (ACZONE) 5 % topical Gel 0 08/06/2020 Active etonogestreL (NEXPLANON) 68 mg subdermal ImplantIndications:E ncounter for removal and reinsertion of Nexplanon 1 Each (68 mg) by implant route once. 1 Each 0 06/04/2021 Active Clindamycin Phosphate 1 % topical Swab 0 10/02/2021 Active atomoxetine (STRATTERA) 100 mg oral CapsuleIndications:A ttention deficit hyperactivity disorder (ADHD), combined type Take 100 mg by mouth once daily. 90 Capsule 2 04/01/2022 Active escitalopram oxalate (LEXAPRO) 20 mg oral TabletIndications:An xiety state, unspecified Take 1 Tablet (20 mg) by mouth once daily. 90 Tablet 0 04/01/2022 Active busPIRone (BUSPAR) 10 mg oral TabletIndications:An xiety state, unspecified Take 1 Tablet (10 mg) by mouth twice daily. 180 Tablet 0 04/01/2022 Active pantoprazole (PROTONIX) 40 mg oral Tablet, Delayed Release (E.C.)Indications:Ot her chronic gastritis without hemorrhage Take 1 Tablet (40 mg) by mouth once daily on an empty stomach. 90 Tablet 0 04/01/2022 Active propranoloL (INDERAL LA) 60 mg oral Capsule, Sustained Action 24HRIndications:Anxi ety state, unspecified Take 1 Capsule (60 mg) by mouth once daily. 90 Capsule 0 04/01/2022 Active levothyroxine (LEVOXYL,SYNTHROID) 100 mcg oral TabletIndications:Hy pothyroidism, unspecified type Take 1 Tablet (100 mcg) by mouth once daily. 90 Tablet 0 04/01/2022 Active fluticasone propionate (FLOVENT DISKUS) 50 mcg/actuation inhalation Disk with DeviceIndications:Mi ld persistent asthma without complication Inhale 2 Inhalation (2 Puffs) by mouth twice daily. 60 Each 0 04/01/2022 Active Active Problems Problem Noted Date Diagnosed Date Pain in right hand 12/14/2021 Encounter for removal and reinsertion of Nexplan on 06/04/2021 Overview: Nexplanon Lot #[id number] ; Expiration date: 05/14/2023; Insertion date: 06/04/21 Removal date: 06/04/2024 Displaced fracture of capita te (os magnum) bone, unspecified wrist, initial encounter for open fracture 12/10/2020 Mild intermittent asthma without complication Epigastric pain 03/01/2019 Overview: Added automatically from request for surgery [id number] Attention deficit hyperactivity disorder (ADHD) 06/09/2007 Anxiety state, unspecified 06/09/2007 Overview: ICD10 Regulatory Release Disturbance of conduct 06/09/2007 Overview: 02/12/22 IMO Regulator Release Replacements Hypothyroidism 06/08/2004 Overview: Problem list name updated by automated process. Provider to review Immunizations Name Administration Dates Next Due [id number] Vaccine, IM (Pentacel) 2001 DTaP Vac, <7 Yrs, IM (Daptacel,Infanrix,Tripedia) 08/07/2012,07/01/2006,10/29/2002,02/21,2001,2001 HIB, PRP-OMP Conj, IM, (3 do ses) (PedvaxHib) 2001 Hepatitis A Vaccine, IM, Ped /Adol (2 doses) 04/24/2010,03/06/2009 Hepatitis B Vaccine, IM, Helio lt (2 Doses) (Heplisav-B) 2001 Hepatitis B/HIB Vaccine, IM, (Comvax) 08/13/2002 ,2001 Human Papilloma Virus Vaccin e(Gardasil 9) 02/19/2013,11/08/2012,08/07/2012 Human Papilloma Virus Vaccine(Gardasil) 02/19/2013,11/08/2012,08/07/2012 Influenza Vac, H1N1 11/03/2009,10/02/2009 Influenza Vac, IM, Quadrivalent 08/26/2020 Influenza Vac, IM, Quadrival ent Preserv Free, (6-35 Mo) 09/02/2011 Influenza Vac, IM, Quadrival ent Preserv Free, (>6 months) 08/06/2021,09/28/2019,08/23/2018,10/07,09/17/2016,08/18/2015,09/19/2013 Influenza Vac, IM, Trivalent , Preserv Free, (>3yrs) 09/02/2011 Influenza Vac, Intranasal, Quadrivalent (Flumist) 08/18/2015,09/21/2014,09/19/2013,08/07 Influenza Vac, Intranasal, T rivalent (Flumist) 08/18/2015,09/21/2014,09/19/2013,08/07 MMR Vaccine (Mumps, Measles, Rubella) SQ 07/01/2006,10/29/2002 Meningococcal Conj Vac,Tetra valent, IM (Menactra) 06/21/2019,08/07/2012 Pneumococcal Conj Vac, 13-va lent (Prevnar) 2001 Pneumococcal Conj,Poly,Vac,IM,<5Yr(Prevnar 7) 04/30/2002,02/21/2002,2001 Poliovirus Vaccine, IM or SQ (IPV) 07/01,02/21/2002,2001,10/04 SARS-CoV-2, IM (COVID-19)(Moderna)(Light Blue Label) 10/09/2021,03/20/2021,02/20/2021 Tdap Vaccine, IM, (Adacel)(Boostrix) 08/07/2012 Varicella Vaccine, SQ (Varivax) 03/06/2009,08/13 Social History Tobacco Use Types Packs/Day Years Used Date Smoking Tobacco: Never Smokeless Tobacco: Never Tobacco Cessation:Counseling Given: No Alcohol Use Standard Drinks/Week Comments Not Currently 0 (1 standard drink = 0.6 oz pur e alcohol) Humiliation, Afraid, Rape, and Kick questionnair e Answer Date Recorded Within the last year, have y ou been afraid of your partner or ex-partner? No 01/07/2022 Within the last year, have y ou been humiliated or emotionally abused in other ways by your partner or ex-partner? No Within the last year, have y ou been kicked, hit, slapped, or otherwise physically hurt by your partner or ex-partner? No 01/07/2022 Within the last year, have y ou been raped or forced to have any kind of sexual activity by your partner or ex-partner? No 01/07/2022 Social Connection and Isolation Panel [NHANES] A nswer Date Recorded In a typical week, how many times do you talk on the phone with family, friends, or neighbors? Three times a week 01/07/20 How often do you get togethe r with friends or relatives? Twice a week 01/07/2022 How often do you attend [facility] or cheondoism services? 1 to 4 times per year 01/07/2022 Do you belong to any clubs o r organizations such as jainism groups, unions, fraternal or athletic groups, or school groups? No 01/07/2022 How often do you attend meet ings of the clubs or organizations you belong to? Never 01/07/2022 Are you , , di vorced, , never , or living with a partner? Patient declined 01/07/2022 AUDIT-C Answer Date Recorded Q1: How often do you have a drink containing alc ohol? Never 01/07/2022 Q2: How many drinks containi ng alcohol do you have on a typical day when you are drinking? Patient declined 01/07/2022 Q3: How often do you have si x or more drinks on one occasion? Patient declined 01/07/2022 Overall Financial Resource Strain (CARDIA) Answe r Date Recorded How hard is it for you to pa y for the very basics like food, housing, medical care, and heating? Somewhat hard 01/07/2022 [facility] Occupat ional [facility] - Occupational Stress Questionnaire Answer Date Recorded Do you feel stress - tense, restless, nervous, or anxious, or unable to sleep at night because your mind is troubled all the time - these days? Only a little 01/07/2022 Exercise Vital Sign Answer Date Recorde d On average, how many days pe r week do you engage in moderate to strenuous exercise (like a brisk walk)? 4 days 01/07/2022 On average, how many minutes do you engage in exercise at this level? 40 min 01/07/2022 Hunger Vital Sign Answer Date Recorded Within the past 12 months, y ou worried that your food would run out before you got the money to buy more. Never true 01/07/20 22 Within the past 12 months, t he food you bought just didn't last and you didn't have money to get more. Never true 01/07/2022 PRAPARE - Transportation Answer Date Re corded In the past 12 months, has l ack of transportation kept you from medical appointments or from getting medications? No 12/16 In the past 12 months, has l ack of transportation kept you from meetings, work, or from getting things needed for daily living? No 01/07/2022 Housing Stability Answer Date Recorded In the last 12 months, was t here a time when you were not able to pay the mortgage or rent on time? No 01/07/2022 In the last 12 months, how many places have you lived? 1 01/07/2022 Number of Places Lived in the Last Year (Outpati ent) Not on file 01/07/2022 Number of Places Lived in the Last Year (Inpatie nt) Not on file 01/07/2022 In the last 12 months, was t here a time when you did not have a steady place to sleep or slept in a retirement (including now)? No 01/07/2022 Depression (PHQ-9) Answer Date Recorded Last PHQ-9 Score Not on file 03/26/2023 Thoughts of self harm Not at all 03/26/2023 Sex and Gender Information Value Date Recorded Sex Assigned at Not on file Gender Identity Not on file Sexual Orientation Not on file Last Filed Vital Signs Vital Sign Reading Time Taken Comments Blood Pressure 112/68 03/18/2022 11:40 AM CDT Pulse 108 03/18/2022 11:40 AM CDT Temperature 36.3 ??C (97.4 ??F) 03/18/2022 11:40 AM C DT Respiratory Rate 14 01/01/2022 10:15 AM RAVELER Oxygen Saturation 100% 03/18/2022 11:40 AM CDT Inhaled Oxygen Concentration - - Weight 76.7 kg (169 lb) 02/23/2022 1:10 PM CDT Height 176.5 cm (5' 9.5) 02/22/2022 1:52 PM CDT Body Mass Index 24.6 02/22/2022 1:52 PM CDT Plan of Treatment Health Maintenance Due Date Last Done Comments Hepatitis C Testing 2001 Hepatitis B Vaccines (3 of 3 - 3-dose series) 10/08/2002 08/13/2002, 2001, 2001 Pneumococcal Vaccine (0-64 Y ears) (1 of 1 - PPSV23 or PCV20) 2007 04/30/2002, 02/21/2002, 2001, Additional history exists HIV Screen 2016 Asthma Action Plan 02/27/2022 02/27/2021 Asthma Control Test 05/18/2022 03/18/2022 Chlamydia Screen Age 16-24 Years 01/14/2023 01/15/20 22 PHQ-9 Depression Screening 03/17/2023 03/17/2022 COVID-19 Vaccine (4 - 2022-2 4 season) 2023 10/09/2021, 03/20/2021, 02/20/2021 Influenza Vaccine (Season Ended) 2024 08/06/2021, 08/26/2020, 08/26/2020, Additional history exists Cervical Cancer Screening 01/14/2025 01/14/2022 DTaP/Tdap/Td Vaccines (9 - T d or Tdap) 07/13/2032 07/13/2022, 08/07/2012, 08/07/2012, Additional history exists Varicella Zoster Sequential (1 of 2) 2051 03/06/2009, 08/13/2002 HIB Vaccines Completed 08/13/2002, 12/15, 2001, Additional history exists Hepatitis A Vaccines Completed 04/24/2010, 03/06/20 09 HPV Vaccines Completed 02/19/2013, 0406/2013, 11/08/2012, Additional history exists Meningococcal Vaccines Completed 06/21/2019, 2011 Claudia Leach Personal/Family Self 2000 [address] [place] [address] Claudia Leach [employer] Liability Self 2000 [address] [place] [id number] [id number] Workers Comp Employer 2000 [address] [place] [id number] [id number] [employer] Workers Comp Employer [address] [place] [address] Additional Source Comments PLEASE NOTE: Replies to this message will not be received.[facility]
--- OUTSIDE RECORDS SUMMARY | 2024-02-23 18:50 | XMS_ITS | Clinical Summary ---
Author Name Unknown Organization [facility] Address [address] [place] [address] Care Team Providers Care Biological Engineer Name Role Phone Elsewhere, Pcp Primary Care Provider Unavailabl e Source Comments Patient records contain information from all sites at [facility]. For routine questions regarding patient records, call [phone] during business hours, M-F 8:00 AM - 5:00 PM Central Time. Record requests for emergency care only can be directed to [phone] at any time.[facility] Allergies Active Allergy Reactions Criticality Noted Date Comments Bee Venom Protein (Honey Bee) Anaphylaxis 07/18/2019 Influenza Virus Vaccine Trivalent 8181-9818 (2) Other (see comments) 09/26/2023 Latex Rash Medium 08/22/2020 Venom-Honey Bee Anaphylaxis,Hives (R eselect Reaction) High 07/18/2019 Medications Medication Sig Dispensed Refills Start Date End Date Status cholecalciferol (for_VITAMIN D3) 2,000 Unit tablet Take 1 tablet by mouth daily. 0 02/11/2014 Active EPINEPHRINE INJ Inject 0.3 mg intramuscularly once. 0 05/31/2015 Active etonogestreL (NEXPLANON) 68 mg subdermal implant 0 09/15/2018 Active escitalopram (LEXAPRO) 20 mg tablet Take 1 tablet by mouth daily. 0 06/26/2020 Active busPIRone (BUSPAR) 10 mg tablet Take 10 mg by mouth 2 (two) times a day. 0 06/26/2020 Active pantoprazole (PROTONIX) 40 mg EC tablet TAKE 1 TABLET BY MOUTH ONCE DAILY ON AN EMPTY STOMACH 0 10/20/2021 Active clindamycin (CLEOCIN T) 1 % swab Apply 1 Application topically 2 (two) times a day. 0 10/02/2021 Active propranoloL (INDERAL LA) 60 mg 24 hr capsule Take 1 capsule (60 mg total) by mouth daily. 90 capsule 3 11/25/2021 Active albuterol 2.5 mg /3 mL nebulizer solutionIndication s:Asthma Exacerbation (HCC) Inhale 3 mL (2.5 mg total) by nebulization every 4 (four) hours as needed for wheezing or shortness of breath. 225 mL 3 11/19/2022 Active levothyroxine (SYNTHROID, LEVOTHROID) 125 mcg tablet Take 125 mcg by mouth every morning before breakfast. 0 Active metoprolol tartrate (LOPRESSOR) 25 mg tablet Take 1 tablet (25 mg total) by mouth 2 (two) times a day. 120 tablet 1 12/05/2023 Active Active Problems Problem Noted Date Diagnosed Date Hypothyroidism 07/18/2019 Pain Epigastric 03/01/2019 Overview: Added automatically from request for surgery [id number] Attention Deficit With Hyperactivity Disorder Overview: ADHD Pain Hand Right Resolved Problems Problem Noted Date Diagnosed Date Resolved Date Vomiting 03/01/2019 11/17/2021 Overview: Added automatically from request for surgery [id number] Encounters Date Type Department Care Team Description 01/23/2024 Orders Only Division of Gastroenterology in [address] [address] Jorge Tirado M.D. Genetic Susceptibility To Disease 01/16/2024 9:30 AM CORE FILER Clinical Support Department of Occupational Medicine in [address] [address] Samantha Shabazz M.D., M.P.H. Drug Screen (Primary Dx) Discharge Disposition: Home or Self Care 12/21/2023 11:15 AM CORE FILER Telemedicine Department of Cardiovascular Medicine in [address] [address] James Sanchez M.D. Tachycardia Sinus 12/19/2023 9:15 AM CORE FILER Clinical Communication Virtual Review in [address] [address] Pre-visit Intake 12/05/2023 Documentation Department of Cardiovascular Medicine in [place], [place] [address] [place] [address] James Sanchez M.D. from Last 3 Months Immunizations Name Administration Dates Next Due 4vHPV (discontinued) 02/19/2013,11/08/2012,08/07 9vHPV 02/19/2013,11/08/2012,08/07/2012 DTaP (Daptacel) 07/01/2006, 2,02/21/2002,2001 DTaP (Infanrix, Tripedia) 08/07/2012,,10/29/2002,2001,2001,2001 DTaP, Unspecified 08/07/2012, 6,10/29/2002,2001,2001 DTaP-IPV/Hib (Pentacel) 2001 H1N1 All Forms 11/03/2009,10/02/2009 H1N1 Nasal 11/03/2009,10/02/2009 HepA Pediatric/Adolescent 04/24/2010,03/06/2009 HepB Adult (HEPLISAV-B) 2001 HepB, Unspecified 2001 Hib (PRP-OMP) (PedvaxHIB) 2001 Hib-HepB 08/13/2002,2001,2001 IPV 07/01/2006, 2,2001,2000 Influenza (IM) Preservative Free 09/02/2011 Influenza Laiv (Nasal) (Discontinued) 09/21/2014 ,08/07/2012 Influenza, Injectable, Quadrivalent 08/26/2020 Influenza, Unspecified 09/02/2011 MCV4 (Menactra)(Discontinued) 06/21/2019, 012 MMR 07/01/2006,10/29/2002 PCV13 2001 PCV7 (discontinued) 04/30/2002,02/21/2002,2001 SARS-COV-2 (COVID-19) - MODERNA(Discontinued) 10/09/2021 Tdap 07/13/2022,08/07/2012 JACQUELINE 03/06/2009,08/13/2002 influenza LAIV (Nasal) (2 ye ars through 49 years) 08/18/2015,09/21/2014,09/19/2013,2011 influenza vaccine quad (FLUZ ONE) (6 months-35 months) (PF) 09/02/2011 influenza vaccine quad (FLUZONE/FLUARIX) (6 months and older)(PF) 08/06/2021,08/26/2020,09/28/2019,2017,10/07/2017,09/17/2016,08/18/2015,1 11/21/2013,09/19/2013,08/07/2012, 011,11/03/2009,10/02/2009 Family History Medical History Relation Name Comments ADD Father Manoj finney Hypertension Father Manoj finney Skin cancer Father Manoj finney Sleep apnea Father Manoj finney Other cancer Maternal Grandfather Davy finney Skin cancer Maternal Grandfather Davy finney Alopecia Mother Helen finney Sleep apnea Mother Helen finney Melanoma Paternal Grandfather Romel voss Prostate cancer Paternal Grandfather Romel voss Skin cancer Paternal Grandfather Romel liza Stroke Paternal Grandmother Shreya voss Relation Name Status Comments Father Manoj finney Maternal Grandfather Davy finney Mother Helen finney Paternal Grandfather Romel voss Paternal Grandmother Shreya voss Social History Tobacco Use Types Packs/Day Years Used Date Smoking Tobacco: Never E-cigarettes Smokeless Tobacco: Never Tobacco Cessation:Counseling Given: Not Answered Alcohol Use Standard Drinks/Week Comments Yes 2 (1 standard drink = 0.6 oz pur e alcohol) Humiliation, Afraid, Rape, and Kick questionnair e Answer Date Recorded Within the last year, have y ou been afraid of your partner or ex-partner? No 2022 Within the last year, have y ou been humiliated or emotionally abused in other ways by your partner or ex-partner? No Within the last year, have y ou been kicked, hit, slapped, or otherwise physically hurt by your partner or ex-partner? No 2022 Within the last year, have y ou been raped or forced to have any kind of sexual activity by your partner or ex-partner? No 2022 Social Connection and Isolation Panel [NHANES] A nswer Date Recorded In a typical week, how many times do you talk on the phone with family, friends, or neighbors? Twice a week 08/03/20 How often do you get togethe r with friends or relatives? Twice a week 2022 How often do you attend chur or mandaen services? 1 to 4 times per year 2022 Do you belong to any clubs o r organizations such as latter-day groups, unions, fraternal or athletic groups, or school groups? No 2022 How often do you attend meet ings of the clubs or organizations you belong to? 1 to 4 times per year 2022 Are you , , di vorced, , never , or living with a partner? Patient declined 2022 AUDIT-C Answer Date Recorded Q1: How often do you have a drink containing alc ohol? 2-4 times a month 2022 Q2: How many drinks containi ng alcohol do you have on a typical day when you are drinking? 1 or 2 2022 Q3: How often do you have si x or more drinks on one occasion? Never 2022 Overall Financial Resource Strain (CARDIA) Answe r Date Recorded How hard is it for you to pa y for the very basics like food, housing, medical care, and heating? Not hard at all 09/20/2023 PHQ-2 Answer Date Recorded PHQ-2 Score 0 11/16/2022 [facility] ional Health - Occupational Stress Questionnaire Answer Date Recorded Do you feel stress - tense, restless, nervous, or anxious, or unable to sleep at night because your mind is troubled all the time - these days? Only a little 2022 Exercise Vital Sign Answer Date Recorde d On average, how many days pe r week do you engage in moderate to strenuous exercise (like a brisk walk)? 6 days 09/20/2023 On average, how many minutes do you engage in exercise at this level? 20 min 09/20/2023 Hunger Vital Sign Answer Date Recorded Within the past 12 months, y ou worried that your food would run out before you got the money to buy more. Never true 09/20/20 23 Within the past 12 months, t he food you bought just didn't last and you didn't have money to get more. Never true 09/20/2023 PRAPARE - Transportation Answer Date Re corded In the past 12 months, has l ack of transportation kept you from medical appointments or from getting medications? No 05/2023 In the past 12 months, has l ack of transportation kept you from meetings, work, or from getting things needed for daily living? No 09/20/2023 Nutrition Answer Date Recorded Nutrition: EVOO Fat Source No 09/20 On average, how many serving s of fruits and vegetables do you eat per day (serving size is equal to 1 cup or approximately the size of a tennis ball)? 0-2 09/20/2023 Dental Answer Date Recorded Dental: Regular Dentist Yes 08/03/20 Employment Answer Date Recorded Employment status Unemployed/not in th e paid workforce but seeking employment 09/20/2023 Housing Stability Answer Date Recorded What is your living situation today? I have a [facility] place to live 09/20/2023 Education Answer Date Recorded What is the highest level of school you have completed or the highest degree you have received? Associate degree: occupational, technical, or vocational program 2022 Sex and Gender Information Value Date Recorded Sex Assigned at Female 2022 7:28 PM CDT Gender Identity Female 2022 7:28 PM CDT Sexual Orientation Choose not to disclose 2021 7:28 PM CDT Last Filed Vital Signs Vital Sign Reading Time Taken Comments Blood Pressure 114/75 08/05/2023 8:00 AM CDT Pulse 83 08/05/2023 8:00 AM CDT Temperature 36.3 ??C (97.3 ??F) 04/10/2023 7:59 PM CD T Respiratory Rate 16 04/10/2023 9:30 PM CDT Oxygen Saturation 98% 04/10/2023 9:30 PM CDT Inhaled Oxygen Concentration - - Weight 71.9 kg (158 lb 8.2 oz) 08/05/2023 8:00 A M CDT Height 176.7 cm (5' 9.57) 08/05/2023 8:00 AM CD T Body Mass Index 23.03 08/05/2023 8:00 AM CDT Plan of Treatment Health Maintenance Due Date Last Done Comments Cervical Cancer Screening 2001 Hepatitis C Screening 2001 COVID-19 Vaccine ( season) 2023 10/09/2021, 03/20/2021, 02/20/2021 Depression Screening (Annual PHQ-2) 11/14/2023 Thyroid Stimulating Hormone (TSH) test for thyroid function 07/29/2024 07/29/2023, 04/10/2023, 11/15/2021, Additional history exists DTaP,Tdap,and Td Vaccines (10 - Td or Tdap) 07/13/2032 07/13/2022, 08/07/2012, 08/07/2012, Additional history exists Pneumococcal vaccine (0-64 years) Aged Out 04/30/2002, 02/21/2002, 2001, Additional history exists No longer eligible based on patient's age to complete this topic HPV Vaccines Completed 02/19/2013, 04/0 06/2013, 11/08/2012, Additional history exists Meningococcal Vaccine Completed 06/21/2019, 012 Hepatitis B Vaccines Completed 01/30/2024, 08/13/2002, 2001, Additional history exists Medical Devices Implanted Type Area Operations Professional Device Identifier Shelf Expiration Date Model / Serial / Lot Gynecologic Other Gynecologic Other Left: Arm Description:Sunlot[employer] Advance Directives For more information, please contact: [phone] * Full Code (Latest Code Status on File) Date Activated Date Inactivated Comments 07/18/2019 12:23 PM 07/18/2019 3:09 PM Question Answer Comments Full Code: Discussed Care Teams Biological Engineer Relationship Specialty Start Date End Date Elsewhere, Pcp PCP - General Internal Medicine 08/04/23
--- OUTSIDE RECORDS SUMMARY | 2024-02-23 18:51 | XMS_ITS | Referral Summary ---
Author Name Unknown Organization [facility] Address [address] [place] [address] Care Team Providers Care Nuclear Unit Operator Name Role Phone Elsewhere, Pcp Primary Care Provider Unavailabl e Source Comments Patient records contain information from all sites at [facility]. For routine questions regarding patient records, call [phone] during business hours, M-F 8:00 AM - 5:00 PM Central Time. Record requests for emergency care only can be directed to [phone] at any time.[facility] Encounters Date Type Department Care Team Description 01/23/2024 Orders Only Division of Gastroenterology in [address] [phone] Jorge Tirado M.D. Genetic Susceptibility To Disease 01/16/2024 9:30 AM HYDROTREATER OPERATOR Clinical Support Department of Occupational Medicine in [address] [phone] Samantha Shabazz M.D., M.P.H. Drug Screen (Primary Dx) Discharge Disposition: Home or Self Care 12/21/2023 11:15 AM HYDROTREATER OPERATOR Telemedicine Department of Cardiovascular Medicine in [address] [phone] James Sanchez M.D. Tachycardia Sinus 12/19/2023 9:15 AM HYDROTREATER OPERATOR Clinical Communication Virtual Review in [address] [address] Pre-visit Intake 12/05/2023 Documentation Department of Cardiovascular Medicine in [address] [phone] James Sanchez M.D. from Last 3 Months Allergies Active Allergy Reactions Criticality Noted Date Comments Bee Venom Protein (Honey Bee) Anaphylaxis 07/18/2019 Influenza Virus Vaccine Trivalent [id number] (2) Other (see comments) 09/26/2023 Latex Rash [...] Overview: Added automatically from request for surgery [id number] Attention Deficit With Hyperactivity Disorder Overview: ADHD Pain Hand Right Resolved Problems Problem Noted Date Diagnosed Date Resolved Date Vomiting 03/01/2019 11/17/2021 Overview: Added automatically from request for surgery [id number] Immunizations Name Administration Dates Next Due 4vHPV [...] (6 months and older)(PF) 08/06/2021,08/26/2020,09/28/2019,2017,10/07/2017,09/17/2016,08/18/2015,1 11/21/2013,09/19/2013,08/07/2012, 011,11/03/2009,10/02/2009 Social History Tobacco Use Types Packs/Day Years [...] week 2022 How often do you attend [facility] or sikhism services? 1 to 4 times per year 2022 Do you belong to any clubs o r organizations such as mormonism groups, unions, fraternal or athletic groups, or [...] Answer Date Recorded PHQ-2 Score 0 11/16/2022 [facility] of Occupat ional Health - Occupational Stress [...] Answer Date Recorded Employment status Unemployed/not in [place] - [employer] paid workforce but seeking employment 09/20/2023 Housing Stability Answer Date Recorded What is your living situation today? I have a [employer] place to live 09/20/2023 Education Answer Date [...] 08/05/2023 8:00 AM CDT Plan of Treatment Not on file Medical Devices Implanted Type Area Buyer Tobacco Head Device Identifier Shelf Expiration Date Model / Serial / Lot Gynecologic Other Gynecologic Other Left: Arm Description:URXplanon Advance Directives For more information, please contact: [phone] * Full Code (Latest Code Status on File) Date Activated Date Inactivated Comments 07/18/2019 12:23 PM 07/18/2019 3:09 PM Question Answer Comments Full Code: Discussed Care Teams Nuclear Unit Operator Relationship Specialty Start Date End Date Elsewhere, Pcp PCP - General Internal Medicine 08/04/23
--- OUTSIDE RECORDS SUMMARY | 2024-02-23 18:51 | XMS_ITS | Encounter Summary ---
Author Name Unknown Organization [facility] Address [address] [place] [address] Care Team Providers Care Towel Hemmer Name Role Phone Elsewhere, Pcp Primary Care Provider Unavailabl e Reason for Visit * Reason Onset Date Comments Pre-visit Intake 12/19/2023 Encounter Details Date Type Department Care Team (Latest Contact Info) Description 12/19/2023 9:15 AM WEFT STRAIGHTENER Clinical Communication Virtual Review in [place], [place] [address] [place], [place] [id number] Pre-visit Intake Social History Tobacco Use Types Packs/Day Years [...] week 2022 How often do you attend [facility] or buddhism services? 1 to 4 times per year 2022 Do you belong to any clubs o r organizations such as temple groups, unions, fraternal or athletic groups, or [...] Answer Date Recorded PHQ-2 Score 0 11/16/2022 [facility] Occupat ional [facility] - Occupational Stress Questionnaire Answer Date Recorded [...] your living situation today? I have a [facility] place to live 09/20/2023 Education Answer [...] not to disclose 2021 7:28 PM CDT documented as of this encounter Plan of Treatment Not on file documented as of this encounter Visit Diagnoses Not on filedocumented in this encounter Care Teams Towel Hemmer Relationship Specialty Start Date End Date Elsewhere, Pcp PCP - General Internal Medicine 08/04/23 documented as of this encounter
--- OUTSIDE RECORDS SUMMARY | 2024-02-23 18:51 | XMS_ITS | Clinical Summary ---
Author Name Unknown Organization [facility] Address [place], [place] [address] Care Team Providers Care Stone Mill Operator Name Role Phone Jose Johnson MD Primary Care Provider [phone] Allergies Active Allergy Reactions Criticality Noted Date Comments Latex Rash Medium 08/22/2020 Venom-Honey Bee Anaphylaxis High 07/18/2019 Active Problems Problem Noted Date Diagnosed Date Anxiety state, unspecified 06/09/2007 Attention deficit disorder with hyperactivity(31 4.01) 06/09/2007 Unspecified disturbance of conduct 06/09/2007 Social History Tobacco Use Types Packs/Day Years Used Date Smoking Tobacco: Never Assessed PHQ-2 Answer Date Recorded PHQ-2 TOTAL SCORE 0 04/26/2023 Social Connections Answer Date Recorded Frequency of Communication with Friends and Fami ly Not on file 11/13/2021 Financial Resource Strain Answer Date R ecorded Difficulty of Paying Living Expenses Not on file 11/13/2021 Difficulty of Paying Living Expenses Not on file 11/13/2021 Sex and Gender Information Value Date Recorded Sex Assigned at Not on file Gender Identity Not on file Sexual Orientation Not on file Last Filed Vital Signs Vital Sign Reading Time Taken Comments Blood Pressure - - Pulse 112 11/13/2021 1:51 PM TRANSLATOR Temperature 37.1 ??C (98.8 ??F) 11/13/2021 1:51 PM CS T Respiratory Rate - - Oxygen Saturation 99% 11/13/2021 1:51 PM TRANSLATOR Inhaled Oxygen Concentration - - Weight - - Height - - Body Mass Index - - Plan of Treatment Health Maintenance Due Date Last Done Comments Tdap 2012 HIV for age 15-65 2016 HPV series for age 9-26 (1 - 3-dose series) 2016 Chlamydia for age 16-24 2017 BMI (ht and wt on same day) for age 18+ 2019 Hepatitis C screening for ag e 18-79 2019 Tetanus booster 2021 Pap test for age 21-65 2022 COVID-19 vaccine series (3 - 2022- season) 2023 03/20/2021, 02/20/2021 Depression screening for age 12+ 04/26/2024 04/26/2023 Influenza for age 9-49 07/15/2024 Pneumococcal series for age 6-64 Aged Out No longer eligible b ased on patient's age to complete this topic Care Teams Stone Mill Operator Relationship Specialty [place] [id number] [phone] PCP - General 05/12/07
--- OUTSIDE RECORDS SUMMARY | 2024-02-23 18:51 | XMS_ITS | Encounter Summary ---
Author Name Unknown Organization [facility] Address [address] [place] [address] Care Team Providers Care Pre K Lead Teacher Name Role Phone Elsewhere, Pcp Primary Care Provider Unavailabl e Encounter Details Date Type Department Care Team (Late st Contact Info) Description 01/23/2024 Orders Only Division of Gastroenterology in [place], [place] [address] [place] [phone] Jorge Tirado M.D. [address] [place] [phone] Genetic Susceptibility To Disease Social History Tobacco Use Types Packs/Day Years Used Date Smoking Tobacco: Never E-cigarettes Smokeless Tobacco: Never Alcohol Use Standard Drinks/Week Comments Yes 2 [...] 2022 How often do you attend chur ch or sabianist services? 1 to 4 times per year 2022 Do you belong to any clubs o r organizations such as judaism groups, unions, fraternal or athletic groups, or [...] Answer Date Recorded PHQ-2 Score 0 11/16/2022 [facility] of Occupat ional Health - Occupational Stress [...] your living situation today? I have a [facility] place to live 09/20/2023 Education Answer Date [...] on file documented as of this encounter Procedures Procedure Name Priority Date/Time Associated Diagnosis Comments EXT TAPESTRY Routine 09/30/2022 12:00 AM SENIOR NET ENGINEER Genetic Susceptibility To Disease documented in this encounter Results * EXT Tapestry (09/30/2022 12:00 AM SENIOR NET ENGINEER) Gene Studied BRCA1,BRCA2,MLH1,MSH 2, MSH6,PMS2,EPCAM,APOB,L DLR,LDLRAP1,PCSK9 11/11/2022 12:00 AM SENIOR NET ENGINEER ARNOLDO Genetic Disease Assessed Evaluation of 11 genes associated with Hereditary Breast and Ovarian Cancer, Marie Syndrome and Familial Hypercholesterolemia. 11/11/2022 12:00 AM SENIOR NET ENGINEER ARNOLDO Genetic Analysis Overall Interpretation Negative results through Tapestry do not replace diagnostic testing for patients with a personal or family history of cancer/hypercholestero lemia due to limitations with methodology. Consider a referral to a genetic counselor for diagnostic testing if warranted. 11/11/2022 12:00 AM [facility] Genetic Analysis Report See Tapestry PDF Report No actionable gene changes were detected in the genes that cause Familial Hypercholesterolemia. The genes tested for this condition were APOB, LDLR, LDLRAP1, and PCSK9.No actionable gene changes were detected in the genes that cause Hereditary Breast and Ovarian Cancer. The genes tested for this condition were BRCA1 and BRCA2.No actionable gene changes were detected in the genes that cause Marie Syndrome. The genes tested for this condition were MLH1, MSH2, MSH6, PMS2 and EPCAM. DNA extracted from this individual's sample was captured and enriched using a custom set of reagents (JoinTV+ chemistry). Targeted regions were sequenced using an Illumina DNA sequencing system. Your sequence was matched to a modified version of the industry standard reference genome (GRCh38). Variant calling was completed using a customized version of [employer]'s hereO software, requiring 20x coverage for validated variant calls. Copy Number Variants (CNVs) were called using a proprietary bioinformatics pipeline that compared the coverage profile of your sample with the coverage profiles of other reference set samples. [facility] [email or web address] then analyzed the generated variant data for the exons and 10 bp of flanking intronic sequence (and select tagged intronic variants) of the 11 genes included in Mozaico from the [employer]uk[employer] Database. Your sample was reviewed for single nucleotide variants (SNVs), indels up to 20 bp in length, and CNVs that are known or predicted to be actionable. NOTE: This assay has limited sensitivity to CNVs smaller than a few exons. APOB, PCSK9, and LDLR interpretation and reporting is specific to the Familial Hypercholesterolemia phenotype. Variants associated with other phenotypes such as Hypobetalipoproteinemi a are not included. Some known complex variants like the inversion of exons 1-7 in the MSH2 gene (Priti inversion), exons 11-15 of the PMS2 gene, or variants within or immediately adjacent to long homopolymer runs are not analyzed or reported. There are regions that are not covered, such as deep intronic, promoter, and enhancer regions. This assay cannot detect all variants known to increase disease risk. Other clinical diagnostic testing for these conditions could identify variants not detected by this test. If you have had previous testing, these results should be taken into consideration during risk assessments and medical management. 11/11/2022 12:00 AM [employer] Human Reference Sequence Assembly GRCh38 11/11/2022 12:00 AM SENIOR NET ENGINEER ARNOLDO Saliva (Mouth) 09/30/2022 Jorge Tirado M.D. LAB GENETI C TESTING HELIX [facility] [address], [address] [place] [address], RUST ARNOLDO [address], [address] [place] [address] documented in this encounter Visit Diagnoses Diagnosis Genetic Susceptibility To Disease documented in this encounter Care Teams Pre K Lead Teacher Relationship Specialty Start Date End Date Elsewhere, Pcp PCP - General Internal Medicine 08/04/23 documented as of this encounter
--- OUTSIDE RECORDS SUMMARY | 2024-02-23 18:51 | XMS_ITS | Encounter Summary ---
Author Name Unknown Organization [facility] Address [address] [place] [address] Care Team Providers Care Lace Machine Operator Name Role Phone Elsewhere, Pcp Primary Care Provider Unavailabl e Reason for Referral * Outpatient (Routine) - Authorized Specialty Diagnoses / Procedures Referred By Steff wallace Referred To Contact Cardiovascular Disease James Sanchez M.D. [address] [place] [phone] [facility] Referral ID Status Reason Start Date Expiration Date V isits Requested Visits Authorized [id number] Authorized 12/21/2023 06/21/2025 [address] Sanchez's clinic day once it opens [employer]ISOR OF RESEARCH Reason for Visit * Outpatient (Routine) - Closed Specialty Diagnoses / Procedures Referred By Contact Referred To Contact Cardiovascular Diseases / Cardiovascular Disease Diagnoses Tachycardia Sinus James Sanchez M.D. [address] [place] [phone] [facility] Referral ID Status Reason Start Date Expiration Date Visits Re quested Visits Authorized [id number] Closed 09/27/2023 09/26/2024 1 1 Encounter Details Date Type Department Care Team (Latest Contact Info) Description 12/21/2023 11:15 AM SUPERVISOR OF RESEARCH Telemedicine Department of Cardiovascular Medicine in [place], [place] [address] [place] [phone] James Sanchez M.D. [address] [place] [phone] Tachycardia Sinus Social History Tobacco Use Types Packs/Day Years [...] often do you attend chur ch or episcopal services? 1 to 4 times per year 2022 Do you belong to any clubs o r organizations such as sabianism groups, unions, fraternal or athletic groups, or [...] Answer Date Recorded PHQ-2 Score 0 11/16/2022 [facility] - Occupational Stress Questionnaire Answer Date Recorded [...] your living situation today? I have a [facility] place to live 09/20/2023 Education Answer Date [...] PM CDT documented as of this encounter Progress Notes * James Sanchez M.D. - 12/21/2023 11:15 AM CST Images from the original note were not included. [facility] Cardiovascular Disease Office Visit - Follow-Up Note PATIENT NAME: Claudia Leach [id number] VISIT DATE: 12/21/2023 History obtained from patient and chart. Subjective Claudia Leach is a 23 y.o. female with a PMH significant for possible POTS, COVID (10/2022), hypothyroidism, ADHD, who calls today for f/u of tachycardia. The patient has been following with our clinic since 07/2023. At that time, it was noted that she never recovered to her baseline after having had COVID in 10/2022. She had been having continued tachycardia, brain fog, diarrhea, fatigue, and an episode of syncope. The syncope was attributed to a vasovagal episode. She sought care locally and was started on propranolol for suspected inappropriate sinus tachycardia/POTS. At [facility], we ordered a MoME, which noted overall SR w/ <1% PAC/PVC and two 3-beat runs of SVT which were asymptomatic. An echo was normal. A cardiopulmonary VO2 exercise test was normal. Autonomic reflex screen was deferred. She saw the [facility] in 09/2023 and re ceived further guidance regarding formal exercise regimen and conservative measures for tachycardia. She was last seen in our clinic on 09/27/2023. At that time, it was noted that she stopped propranolol. Her palpitations persisted despite high fluid intake, compression stockings, and abdominal binders. As her symptoms were not impacting her life significantly, we advised giving more time for conservative measures to work. In November 2022, however, she reached out to the clinic stating that her HR was been persistently >90 and mostly >100 bpm with worsening fatigue. We started metoprololtartrate 25 mg BID. Today, she mentions feeling markedly improved, which she noticed immediately after starting the metoprolol (of note, she also stopped her ADHD medication around the same time). She has more energy, does not feel fatigue, and her HR has been on average 75-80. She was able to resume a normal exerciseroutine. She did not mild dyspnea, her BP being somewhat lower (as low as 95/60 mm Hg) but asymptomatic, and increased hunger leading to some weight gain (although she has been adjusting her hormonalregimen with her PCP). She had no other concerns or new symptoms. Review of systems was performed and was negative other than what was noted above. History Past Medical History: Diagnosis Date Anxiety Generalized Disorder Asthma NOS 2021 Concussion Loss Of Consciousness Unspecified Duration Initial Depressive Disorder Gastroesophageal Reflux Disease NOS 2019 Hypothyroidism Migraine Headache Other Injury Of Unspecified Body Region November 2020 Current Cardiovascular Medications: Metoprolol tartrate 25 mg BID Objective Physical exam: No abnormalities on video exam. Most Recent Labs: CBC 07/29/23 Normal Chem 07/29/23 Normal Lipid panel 07/2023: TC 163, HDLc 53, LDLc 97, TG 66 HbA1c 4 years prior: 5.3% TSH 1.2 Most Recent Cardiovascular Testing: EKG 08/04/23: NSR Holter/Rhythm monitoring/Device interrogation 08/11/23: overall SR w/ <1% PAC/PVC and two 3-beat runs of SVT which were asymptomatic. Echo 09/02/23: Normal Stress test (cardiopulmonary VO2, 09/02/2023): Average exercise capacity, normal. CCTA: N/A CMR: N/A Coronary angiography: N/A Right heart catheterization: N/A Other: N/A Assessment and Plan Persistent symptomatic sinus tachycardia - No overt trigger, appears most likely in setting of long COVID causing POTS, precipitated by ADHDmedication. Had dramatic improvement with metoprolol and after stopping ADHD med. Conservative measures (fluid and salt intake, compression stockings, abdominal binder), nor propranolol, had any impact on her symptoms/HR. - Holter noted <1% PAC/PVC, two 3-beat runs of asymptomatic SVT (07/2023). Echo normal (08/2023). Cardiopulmonary VO2 exercise test normal (08/2023). - Will consider autonomic reflex screen in the future if symptoms recur. - Continue metoprolol 12.5 mg BID for now. Reiterated importance of fluid and salt intake, exercise, compression stockings, abdominal binder. If symptoms recur, will consider midodrine 2.5 mg BID, and then fludrocortisone 0.1 mg daily. - Visited with [facility] in 09/2023.. Syncope (x1 in 03/2023) - Consistent with vasovagal episode, having occurred in a warm crowded area. On history does not seem to be correlated with arrhythmia. - Echo, Holter unremarkable as above. - No acute management. Mildly elevated LDL - LDL 97 (07/2023). - Repeat lipid panel and A1c in 07/2024. - Discussed lifestyle interventions. Follow-up: in person 07/2024. These recommendations were reviewed and discussed with the patient. All questions were answered. Mason Sanchez M.D. PGY-4 Cardiovascular Disease Fellow [facility], [place], [place] Pager: [phone] 12/21/2023 11:31 AM SUPERVISOR OF RESEARCH [employer] documented in this encounter Plan of Treatment Scheduled Orders Name Type Priority Associated Diagnoses Orde r Schedule Lipid Panel Lab Routine Tachycardia Sinus Expected: 07/15/2024 (Approximate), Expires: 03/20/2025 Hemoglobin A1c Lab Routine Tachycardia Sinus Expected: 07/15/2024 (Approximate), Expires: 03/20/2025 Basic Metabolic Panel Lab Routine Tachycardia Sinus Expected: 07/15/2024, Expires: 03/20/2025 Magnesium Lab Routine Tachycardia Sinus Expected: 07/15/2024 (Approximate), Expires: 03/20/2025 Scheduled Referrals Name Type Priority Associated Diagnoses Order Schedule Cardiovascular Disease office visit (clinic) Outpatient Referral Routine Expect ed: 07/15/2024, Expires: 07/15/2025 documented as of this encounter Visit Diagnoses Diagnosis Tachycardia Sinus documented in this encounter Care Teams Lace Machine Operator Relationship Specialty Start Date End Date Elsewhere, Pcp PCP - General Internal Medicine 08/04/23 documented as of this encounter
--- OUTSIDE RECORDS SUMMARY | 2024-02-23 18:51 | XMS_ITS | Encounter Summary ---
Author Name Unknown Organization [facility] Address [address] [place] [address] Care Team Providers Care Mill Hand Plate Mill Name Role Phone Elsewhere, Pcp Primary Care Provider Unavailabl e Reason for Referral * Outpatient (Routine) - Authorized Specialty Diagnoses / Procedures Referred By Contjules t Referred To Contact Diagnoses Drug Screen Procedures OCC Drug screening Samantha Shabazz M.D., M.P.H. [address] [place] [phone] [facility] Referral ID Status Reason Start Date Expiration Date V isits Requested Visits Authorized [id number] Authorized 01/16/2024 01/15/2025 1 1 CCO PRIZER Reason for Visit * Reason Comments Drug Screen [facility] Encounter Details Date Type Department Care Team (Latest Contact Info) Description 01/16/2024 9:30 AM TOBACCO PRIZER Clinical Support Department of Occupational Medicine in [place], [place] [address] [place] [phone] Samantha Shabazz M.D., M.P.H. [address] [place] [phone] Drug Screen (Primary Dx) Discharge Disposition: Home or Self Care Social History Tobacco Use Types Packs/Day Years [...] often do you attend chur ch or voodoo services? 1 to 4 times per year 2022 Do you belong to any clubs o r organizations such as mandaen groups, unions, fraternal or athletic groups, or [...] Answer Date Recorded PHQ-2 Score 0 11/16/2022 [facility] of Occupat ional Health - Occupational Stress [...] your living situation today? I have a [facility] place to live 09/20/2023 Education Answer Date [...] as of this encounter Progress Notes * Bernadette Kiser, L.P.N. - 01/16/2024 9:30 AM CST Pre-employment uds for [facility] [place]. Uneventful collection CCO PRIZER documented in this encounter Plan of Treatment Scheduled Orders Name Type Priority Associated Diagnoses Orde r Schedule OCC Drug screening Procedures Routine Drug Screen Ordered: 01/16/2024 documented as of this encounter Visit Diagnoses Diagnosis Drug Screen- Primary documented in this encounter Care Teams Mill Hand Plate Mill Relationship Specialty Start Date End Date Elsewhere, Pcp PCP - General Internal Medicine 08/04/23 documented as of this encounter
--- OUTSIDE RECORDS SUMMARY | 2024-02-23 18:51 | XMS_ITS | Encounter Summary ---
Author Name Unknown Organization [facility] Address [address] [place] [address] Care Team Providers Care Supervisor Plastics Name Role Phone Elsewhere, Pcp Primary Care Provider Unavailabl e Encounter Details Date Type Department Care Team (Late st Contact Info) Description 12/05/2023 Documentation Department of Cardiovascular Medicine in [place], [place] [address] [place] [address] James Sanchez M.D. [address] [place] [phone] Social History Tobacco Use Types Packs/Day Years [...] often do you attend chur ch or oriental orthodox services? 1 to 4 times per year [...] Answer Date Recorded PHQ-2 Score 0 11/16/2022 [facility] - Occupational [...] your living situation today? [facility] 09/20/2023 Education Answer [...] Progress Notes * James Sanchez M.D. - 12/05/2023 11:05 AM CST Images from the original note were not included. Brief CVD Clinic Note Received portal message from Jamie antonio HR has been persistently >90 and mostly >100bpm, symptomatic (mainly with fatigue) despite conservative measures. Will start metoprolol tartrate 25 mg BID with close HR and BP monitoring. Mason Sanchez M.D. PGY-4 Cardiovascular Disease Fellow [facility], [place], [place] Pager: [phone] 12/05/2023 11:07 AM LOCKSTITCH POCKET SETTER STITCH POCKET SETTER documented in this encounter Plan of Treatment Not on file documented as of this encounter Visit Diagnoses Not on filedocumented in this encounter Care Teams Supervisor Plastics Relationship Specialty Start Date End Date Elsewhere, Pcp PCP - General Internal Medicine 08/04/23 documented as of this encounter
--- OUTSIDE RECORDS SUMMARY | 2024-02-23 18:51 | XMS_ITS ---
Author Name Unknown Organization [facility] Address [address] [place] [address] Care Team Providers Care Bundle Wrapper Name Role Phone Unavailable Unavailable Unavailable Surgery Details Not on file Complications Check Surgery Details section. Procedure Estimated Blood Loss Check Surgery Details section. Procedure Findings Check Surgery Details section. Procedure Specimens Taken Check Surgery Details section.
--- NOTE | 2024-02-23 18:59 | ED.SOB ---
HPI - SOB/Dyspnea General Chief Complaint: Shortness of Breath/Dyspnea Stated Complaint: Shortness of breath, dizzy Time Seen by Provider: 02/23/24 18:29 Source: patient Mode of arrival: ambulatory Limitations: no limitations History of Present Illness HPI Narrative: Patient is a 23-year-old female presenting for shortness of breath. Symptoms started last night. She initially thought her seasonal allergies were acting up but states they have never felt like this before. Also states he has a history of asthma she has used her inhalers last night without any improvement in his symptoms. She does note she has a postnasal drip. Says it is hard to take a deep breath. Last sick contact she was aware of was 10 days ago and then she was feeling well up until now. Denies any increase in stress. Does states she feels mildly lightheaded and dizzy. Denies chest pain, abdominal pain, nausea/vomiting, headache, vision. Changes, weakness, numbness. Has not had any fevers or chills Related Data Home Medications Medication Instructions Recorded Confirmed albuterol sulfate 90 mcg/actuation g inhalation PRN 05/31/22 01/26/24 aerosol inhaler (Ventolin HFA) cholecalciferol (vitamin D3) 50 50 mcg PO QDAY 05/31/22 02/23/24 mcg (2,000 unit) capsule etonogestrel 68 mg subdermal 1 implant subdermal ONCE 05/31/22 02/23/24 implant (Nexplanon) clindamycin phosphate 1 % topical 1 ea topical DAILY 06/25/23 01/26/24 swab metoprolol tartrate 25 mg tablet 25 mg PO BID 01/26/24 02/23/24 Previous Rx's Medication Instructions Recorded pantoprazole 40 mg tablet,delayed 40 mg PO DAILY #20 tabs 12/27/22 release levothyroxine 125 mcg tablet 125 mcg PO DAILY #90 tabs 07/11/23 buspirone 10 mg tablet 10 mg PO BID #180 tabs 01/10/24 escitalopram oxalate 20 mg tablet 20 mg PO DAILY #90 tabs 01/17/24 Allergies Allergy/AdvReac Type Severity Reaction Status Date / Time bee venom protein (honey bee) Allergy Unknown Verified 02/23/24 18:09 latex Allergy Unknown Verified 02/23/24 18:09 influenza virus vacc AdvReac Verified 02/23/24 18:09 trivalent, who Review of Systems Status of ROS: Reports: 10 or more systems reviewed and unremarkable except as noted in History and [facility] History Dysmenorrhea ?N94.6 - Dysmenorrhea, unspecified (ICD-10) Depression ?F32.A - Depression, unspecified (ICD-10) Asthma ?J45.909 - Unspecified asthma, uncomplicated (ICD-10) Constipation ?K59.00 - Constipation, unspecified (ICD-10) Tachycardia ?R00.0 - Tachycardia, unspecified (ICD-10) GERD (gastroesophageal reflux disease) ?K21.9 - Gastro-esophageal reflux disease without esophagitis (ICD-10) ADHD ?F90.9 - Attention-deficit hyperactivity disorder, unspecified type (ICD-10) ADD (attention deficit disorder) ?F98.8 - Other specified behavioral and emotional disorders with onset usually occurring in childhood and adolescence (ICD-10) Anxiety ?F41.9 - Anxiety disorder, unspecified (ICD-10) Congenital hypothyroidism ?E03.1 - Congenital hypothyroidism without goiter (ICD-10) Fatigue ?R53.83 - Other fatigue (ICD-10) Left knee pain ?M25.562 - Pain in left knee (ICD-10) Surgical History H/O hand surgery ?Z98.890 - Other specified postprocedural states (ICD-10) Family History Family/Other Stroke Father High blood pressure Mother Osteoporosis Family/Other Cancer Social History Narrative: Single. No children. Non-smoker. Alcohol use: 5 per month. No illicit drug use. Smoking Status: Never smoker Do you use any of these nicotine containing products: None Second hand tobacco smoke exposure: No How often do you have a drink containing alcohol: 2-4 times a month How often do you have six or more drinks on one occasion: Never AUDIT-C Alcohol total score: 2 Non-prescribed substance use: denies use Little interest or pleasure in doing things: not at all Feeling down, depressed, or hopeless: not at all service: No Exam Narrative: Exam Narrative: Const: Well-nourished, Well-developed, in mild distress Eyes: PERRL, no conjunctival injection, and symmetrical lids HENT: Atraumatic external nose and ears. Moist mucous membranes. Neck: Symmetric, trachea midline, No thyromegaly. CVS: RRR, No murmurs or gallops. Peripheral pulses 2+ and equal in all extremities RESP: Unlabored respiratory effort. Clear to auscultation bilaterally. GI: Nontender/Nondistended, No rebound or guarding. MSK:Extremities w/o deformity, Normal Active ROM Skin: Warm, Dry. No rashes or lesions. Neuro: Normal Muscle tone, No focal neurological deficits. Psych: Awake, Alert, & Oriented x3. Appropriate mood and affect. Const: Vital Signs, click to edit/add: Vital Signs - 24 hr 02/23/24 18:05 Temperature 98.9 F Pulse Rate [Pulse Oximeter] 76 Respiratory Rate 18 Blood Pressure [Ri ght Upper Arm] 142/90 H Pulse Oximetry 100 Oxygen Delivery Me thod Room Air Course Vital Signs Vital signs: Initial Vital Signs Temperature 98.9 F 02/23/24 18:05 Temperature Source Temporal Artery Scan 02/23/24 18:05 Pulse Rate 76 02/23/24 18:05 Respiratory Rate 18 02/23/24 18:05 Blood Pressure 142/90 H 02/23/24 18:05 Blood Pressure Mean 107 H 02/23/24 18:05 Blood Pressure Position Sitting 02/23/24 18:05 Pulse Oximetry 100 02/23/24 18:05 Oxygen Delivery Method Room Air 02/23/24 18:05 Vital Signs Temperature 98.9 F 02/23/24 18:05 Pulse Rate 76 02/23/24 18:05 Respiratory Rate 18 02/23/24 18:05 Blood Pressure 142/90 H 02/23/24 18:05 Pulse Oximetry 100 02/23/24 18:05 Oxygen Delivery Method Room Air 02/23/24 18:05 Temperature 98.9 F 02/23/24 18:05 Pulse Rate 76 02/23/24 18:05 Respiratory Rate 18 02/23/24 18:05 Blood Pressure 142/90 H 02/23/24 18:05 Pulse Oximetry 100 02/23/24 18:05 Oxygen Delivery Method Room Air 02/23/24 18:05 MDM - SOB/Dyspnea MDM Narrative Medical decision making narrative: Patient is a 23-year-old female presenting to the emergency department for shortness of breath. Symptoms seem most likely to be viral in nature for she considering her postnasal drip. I will order chest x-ray look for signs of pneumonia. EKG also ordered along with a COVID/flu/RSV. Do not believe further lab work is necessary at this time. Chest x-ray reviewed by myself and the radiologist shows no concerning findings. EKG shows no concerning findings. COVID/flu/RSV swab is negative. Again this is most likely viral syndrome and she is otherwise doing well with stable vital signs. I believe she is safe for discharge. She is agreeable to this plan. Lab Data Labs: Lab Results 02/23/24 Range/Units Unknown SARS-CoV-2 (PCR) Negative SARS-CoV-2 (Negative) Influenza Type A (PCR) Negative PCR FLU A (Negative) Influenza Type B (PCR) Negative PCR FLU B (Negative) RSV (PCR) Negative PCR RSV (Negative) Imaging Data Chest x-ray: Attestation: I have reviewed the pertinent imaging results. Radiologist's impression: No acute or significant findings. Dictated by Angel Henley MD @ 02/23/2024 7:24:17 PM ECG Data Attestation: I personally reviewed and interpreted this ECG as follows: Prior ECG tracings: not available for review Interpretation: Normal sinus rhythm with a rate of 67 beats per minute, normal intervals, normal axis, no ST or T-wave abnormalities Discharge Plan Discharge Clinical Impression: Acute viral syndrome Patient Disposition: Home, Self-Care Condition: Stable Instructions: Viral Syndrome (ED) Additional Instructions: Symptoms are most likely from a virus. They should resolve over the next week. Return to the emergency department for any new or worsening symptoms Prescriptions: No Action albuterol sulfate [Ventolin HFA] 90 mcg/actuation HFA aerosol inhaler inhalation PRN Nexplanon 68 mg implant 1 implant subdermal ONCE Rx Instructions: as a single dose cholecalciferol (vitamin D3) 50 mcg (2,000 unit) capsule 50 mcg PO QDAY clindamycin phosphate 1 % swab 1 ea topical DAILY metoprolol tartrate 25 mg tablet 25 mg PO BID pantoprazole 40 mg tablet,delayed release (DR/EC) 40 mg PO DAILY Qty: 20 2RF levothyroxine 125 mcg tablet 125 mcg PO DAILY Qty: 90 3RF buspirone 10 mg tablet 10 mg PO BID Qty: 180 0RF escitalopram oxalate 20 mg tablet 20 mg PO DAILY Qty: 90 1RF Follow Up/Referrals: Yoli Mendes, ARTILLERY OFFICER, STAFF GENETIC COUNSELOR [Primary Care Provider] - Stand Alone Forms: [employer] Info Instructions
[2024-02-23 19:47] LABS: PCR FLU A Negative PCR FLU A (Negative); PCR FLU B Negative PCR FLU B (Negative); PCR RSV Negative PCR RSV (Negative); SARS PCR* Negative SARS-CoV-2 (Negative)
== END 2024-02-23 20:07 | disposition home or self-care (01) ==
PROVIDERS: Emergency Provider Student in an Organized Health Care Education/Training Program; PCP Nurse Practitioner Family
DX: B34.9 Viral infection, unspecified (principal)
CPT/HCPCS: 71046; 87631; 93005; 99282; 99284

== ENCOUNTER 2024-03-06 15:34 | Outpatient (CLI) | payer BC, SELFPAY ==
--- OUTSIDE RECORDS SUMMARY | 2024-03-06 15:36 | XMS_ITS | Encounter Summary ---
Author Name Unknown Organization [facility] Address [address] [place] [address] Care Team Providers Care Route Relief Driver Name Role Phone Elsewhere, Pcp Primary Care Provider Unavailabl e Encounter Details Date Type Department Care Team (Late st Contact Info) Description 01/23/2024 Orders Only Division of Gastroenterology in [place], [place] [address] [place] [phone] Jorge Tirado M.D. [address] [place] [phone] Genetic Susceptibility To Disease Social History Tobacco [...] often do you attend chur ch or congregational services? 1 to 4 times per year 2022 Do you belong to any clubs o r organizations such as buddhism groups, unions, fraternal or athletic groups, or [...] Answer Date Recorded PHQ-2 Score 0 11/16/2022 [facility] Occupat ional Health - Occupational [...] your living situation today? I have a [facility] place to live 09/20/2023 Education [...] Comments EXT TAPESTRY Routine 09/30/2022 12:00 AM REGROOVER Genetic Susceptibility To Disease documented in this encounter Results * EXT Tapestry (09/30/2022 12:00 AM REGROOVER) Gene Studied BRCA1,BRCA2,MLH1,MSH 2, MSH6,PMS2,EPCAM,APOB,L DLR,LDLRAP1,PCSK9 11/11/2022 12:00 AM REGROOVER ARNOLDO Genetic Disease Assessed Evaluation of 11 genes associated with Hereditary Breast and Ovarian Cancer, Marie Syndrome and Familial Hypercholesterolemia. 11/11/2022 12:00 AM REGROOVER ARNOLDO Genetic Analysis Overall Interpretation Negative results through Tapestry do not replace diagnostic testing for patients with a personal or family history of cancer/hypercholestero lemia due to limitations with methodology. Consider a referral to a genetic counselor for diagnostic testing if warranted. 11/11/2022 12:00 AM [employer] Genetic Analysis Report See Tapestry PDF Report [...] enriched using a custom set of reagents ([employer]+ chemistry). Targeted regions were sequenced using an Illumina DNA sequencing system. Your sequence was matched to a modified version of the industry standard reference genome (GRCh38). Variant calling was completed using a customized version of [employer]'s bVisual software, requiring 20x coverage for validated variant calls. Copy Number Variants (CNVs) were called using a proprietary bioinformatics pipeline that compared the coverage profile of your sample with the coverage profiles of other reference set samples. [facility] [employer] then analyzed the generated variant data for the exons and 10 bp of flanking intronic sequence (and select tagged intronic variants) of the 11 genes included in DrFirst from the [employer] Database. Your sample was reviewed for single [...] assessments and medical management. 11/11/2022 12:00 AM [employer] Human Reference Sequence Assembly [id number] 11/11/2022 12:00 AM REGROOVER ARNOLDO Saliva (Mouth) 09/30/2022 Jorge Tirado M.D. LAB GENETI C TESTING HELIX [facility] [id number] [facility], [address] [place] [address], [facility] AR[place]OLDO [address] [address] [facility], [address]. [place] [address] documented in this encounter Visit Diagnoses Diagnosis Genetic Susceptibility To Disease documented in this encounter Care Teams Route Relief Driver Relationship Specialty Start Date End Date Elsewhere, Pcp PCP - General Internal Medicine 08/04/23 documented as of this encounter
--- OUTSIDE RECORDS SUMMARY | 2024-03-06 15:36 | XMS_ITS | Encounter Summary ---
Author Name Unknown Organization [facility] Address [address] [place] [address] Care Team Providers Care Pt Skilled Name Role Phone Sofia Chavis DO Primary Care Provider [phone] Encounter Details Date Type Department Care Team Description 08/30/2021 HIM Manager Dialysis [facility] Family Medicine [address] [place] [address] Casey Grayson MD [address] [place] [address] Social History Tobacco Use Types Packs/Day [...] any clubs o r organizations such as confucianism groups, unions, fraternal or athletic groups, or [...] medical care, and heating? Somewhat hard 06/01/2021 [facility]at ional Health - Occupational [...] place to sleep or slept in a chcf (including now)? Yes 06/01/2021 Depression (PHQ-9) Answer [...] Grayson MD jml P P Doc #: [id number] documented in this encounter Plan of Treatment Not on file documented as of this encounter Visit Diagnoses Not on filedocumented in this encounter Additional Health Concerns Infection Onset Date Last Indicated Resolved Time COVID-19 Rule Out 09/28/2021 09/28/2021 09/29/2021 12:38 PM MECHANICAL PROCESS ENGINEER COVID-19 Rule Out 12/14/2021 12/14/2021 12/15/2021 6:40 PM MECHANICAL PROCESS ENGINEER COVID-19 Rule Out 01/01/2022 01/01/2022 01/01/2022 10:04 AM MECHANICAL PROCESS ENGINEER Respiratory Rule-Out 01/01/2022 01/01/2022 022 10:03 AM MECHANICAL PROCESS ENGINEER documented as of this encounter Care Teams Pt Skilled Relationship Specialty Start Date End Date Sofia Chavis DO [address] [place] [address] PCP - General Family Medicine 08/15/20 03/31/22 documented as of this encounter Additional Source Comments PLEASE NOTE: Replies to this message will not be received.[facility]
--- OUTSIDE RECORDS SUMMARY | 2024-03-06 15:36 | XMS_ITS | Referral Summary ---
Author Name Unknown Organization [facility] Address [address] [place] [address] Care Team Providers Care Nuclear Equipment Test Engineer Name Role Phone Elsewhere, Pcp Primary Care Provider Unavailabl e Source Comments Patient records contain information from all sites at [facility]. For routine questions regarding patient records, call [phone] during business hours, M-F 8:00 AM - 5:00 PM Central Time. Record requests for emergency care only can be directed to [phone] at any time.[facility] Encounters Date Type Department Care Team Description 01/23/2024 Orders Only Division of Gastroenterology in [address] [phone] Jorge Tirado M.D. Genetic Susceptibility To Disease 01/16/2024 9:30 AM PELT SHEARER Clinical Support Department of Occupational Medicine in [address] [phone] Samantha Shabazz M.D., M.P.H. Drug Screen (Primary Dx) Discharge Disposition: Home or Self Care 12/21/2023 11:15 AM PELT SHEARER Telemedicine Department of Cardiovascular Medicine in [address] [phone] James Sanchez M.D. Tachycardia Sinus 12/19/2023 9:15 AM PELT SHEARER Clinical Communication Virtual Review in [address] [address] Pre-visit Intake from Last 3 Months Allergies Active Allergy Reactions Criticality Noted Date Comments Bee Venom Protein (Honey Bee) Anaphylaxis 07/18/2019 Influenza Virus Vaccine Trivalent 8302-6710 (2) Other (see comments) 09/26/2023 Latex Rash Medium 08/22/2020 Venom-Honey Bee Anaphylaxis,Hives (R eselect Reaction) High 07/18/2019 Medications Medication Sig Dispensed Refills Start Date End Date Status cholecalciferol (for_VITAMIN D3) 2,000 Unit tablet Take 1 tablet by mouth daily. 02/11/2014 Active EPINEPHRINE INJ Inject 0.3 mg intramuscularly once. 05/31/2015 Active etonogestreL (NEXPLANON) 68 mg subdermal implant 09/15/2018 Active escitalopram (LEXAPRO) 20 mg tablet Take 1 tablet by mouth daily. 06/26/2020 Active busPIRone (BUSPAR) 10 mg tablet Take 10 mg by mouth 2 (two) times a day. 06/26/2020 Active pantoprazole (PROTONIX) 40 mg EC tablet TAKE 1 TABLET BY MOUTH ONCE DAILY ON AN EMPTY STOMACH 10/20/2021 Active clindamycin (CLEOCIN T) 1 % swab Apply 1 Application topically 2 (two) times a day. 10/02/2021 Active propranoloL (INDERAL LA) 60 mg [...] mcg by mouth every morning before breakfast. Active metoprolol tartrate (LOPRESSOR) 25 mg tablet Take 1 tablet (25 mg total) by mouth 2 (two) times a day. 120 tablet 1 12/05/2023 Active Active Problems Problem Noted Date Diagnosed Date Hypothyroidism 07/18/2019 Pain Epigastric 03/01/2019 Overview: Added automatically from request for surgery [id number] Attention Deficit With Hyperactivity Disorder Overview: ADHD Pain Hand Right Resolved Problems Problem Noted Date Diagnosed Date Resolved Date Vomiting 03/01/2019 11/17/2021 Overview: Added automatically from request for surgery [id number] Immunizations Name Administration Dates Next Due 4vHPV [...] often do you attend chur ch or orthodox services? 1 to 4 times per year 2022 Do you belong to any clubs o r organizations such as religion groups, unions, fraternal or athletic groups, or [...] Answer Date Recorded PHQ-2 Score 0 11/16/2022 [facility] Occupat ional Health - Occupational [...] your living situation today? I have a [facility] place to live 09/20/2023 Education Answer [...] on file Medical Devices Implanted Type Area Crop Specialist Device Identifier Shelf Expiration Date Model / Serial / Lot Gynecologic Other Gynecologic Other Left: Arm Description:Nexplanon Procedures Procedure Name Priority Date/Time Associated Diagnosis Comments THYROID FUNCTION CASCADE, S Routine 07/29/2023 9:55 AM CDT Presyncope Lightheadedness Tachycardia Sinus Palpitations from Last 3 Months or Most Recently Relevant to Health Maintenance Results * Thyroid Function [place] (07/29/2023 9:55 AM CDT) TSH, Sensitive 1.2 0.3 - 4.2 mIU/L 07/29/2023 11:05 AM CDT DTL Blood (Blood, Venous) 07/29/2023 9:55 AM CDT 07/29/2023 10:31 AM CDT Gildardo Lofton APRN, C.N.P. LAB BLOOD ADD-ON [facility] [address] [place] [address], [facility] [address] [place] [address] from Last 3 Months or Most Recently Relevant to Health Maintenance Advance Directives For more information, please contact: [phone] * Full Code (Latest Code Status on File) Date Activated Date Inactivated Comments 07/18/2019 12:23 PM 07/18/2019 3:09 PM Question Answer Comments Full Code: Discussed Care Teams Nuclear Equipment Test Engineer Relationship Specialty Start Date End Date Elsewhere, Pcp PCP - General Internal Medicine 08/04/23
--- OUTSIDE RECORDS SUMMARY | 2024-03-06 15:36 | XMS_ITS | Encounter Summary ---
Author Name Unknown Organization [facility] Address [address] [place] [address] Care Team Providers Care Stake Driver Name Role Phone Elsewhere, Pcp Primary Care Provider Unavailabl e Reason for Referral * Outpatient (Routine) - Authorized Specialty Diagnoses / Procedures Referred By Contjules t Referred To Contact Diagnoses Drug Screen Procedures OCC Drug screening Samantha Shabazz M.D., M.P.H. [address] [place] [address] [facility] Referral ID Status Reason Start Date Expiration Date V isits Requested Visits Authorized [id number] Authorized 01/16/2024 01/15/2025 1 1 TRIC DEICER INSPECTOR Reason for Visit * Reason Comments Drug Screen [facility] Encounter Details Date Type Department Care Team (Latest Contact Info) Description 01/16/2024 9:30 AM ELECTRIC DEICER INSPECTOR Clinical Support Department of Occupational Medicine in [place], [place] [address] [place] [phone] Samantha Shabazz M.D., M.P.H. [address] [place] [address] Drug Screen (Primary Dx) Discharge [...] often do you attend chur ch or muslim services? 1 to 4 times per year [...] Answer Date Recorded PHQ-2 Score 0 11/16/2022 [facility] of Occupat ional Health - Occupational Stress [...] your living situation today? I have a [facility] place to live 09/20/2023 Education Answer [...] 01/16/2024 9:30 AM CST Pre-employment uds for [facility] [place]. Uneventful collection TRIC DEICER INSPECTOR documented in this encounter Plan of Treatment Scheduled Orders Name Type Priority Associated Diagnoses Orde r Schedule OCC Drug screening Procedures Routine Drug Screen Ordered: 01/16/2024 documented as of this encounter Visit Diagnoses Diagnosis Drug Screen- Primary documented in this encounter Care Teams Stake Driver Relationship Specialty Start Date End Date Elsewhere, Pcp PCP - General Internal Medicine 08/04/23 documented as of this encounter
--- OUTSIDE RECORDS SUMMARY | 2024-03-06 15:36 | XMS_ITS | Clinical Summary ---
Author Name Unknown Organization [facility] Address [address] [place] [address] Care Team Providers Care Bowling Pin Refinisher Name Role Phone Unavailable Primary Care Provider [...] of Nexplan on 06/04/2021 Overview: Nexplanon Lot #[id number] ; Expiration date: 05/14/2023; Insertion date: 06/04/21 Removal date: 06/04/2024 Displaced fracture of capita te (os magnum) bone, unspecified wrist, initial encounter for open fracture 12/10/2020 Mild intermittent asthma without complication Epigastric pain 03/01/2019 Overview: Added automatically from request for surgery [id number] Attention deficit hyperactivity disorder (ADHD) 06/09/2007 Anxiety state, unspecified 06/09/2007 Overview: ICD10 Regulatory Release Disturbance of conduct 06/09/2007 Overview: 02/12/22 IMO Regulator Release Replacements Hypothyroidism 06/08/2004 Overview: Problem list name updated by automated process. Provider to review Immunizations Name Administration Dates Next Due [id number] Vaccine, IM (Pentacel) 2001 DTaP Vac, <7 [...] week 01/07/2022 How often do you attend [facility] or mandaen services? 1 to 4 times per year 01/07/2022 Do you belong to any clubs o r organizations such as jehovah's witness groups, unions, fraternal or athletic groups, or [...] medical care, and heating? Somewhat hard 01/07/2022 [facility] of Occupat ional Health - Occupational Stress [...] place to sleep or slept in a halfway (including now)? No 01/07/2022 Depression (PHQ-9) Answer [...] DT Respiratory Rate 14 01/01/2022 10:15 AM SIDE SEAM TENDER Oxygen Saturation 100% 03/18/2022 11:40 AM CDT [...] Personal/Family Self 2000 [address] [place] [address] Claudia Leach Third Republican Liability Self 2000 [address] [place] [address] [id number] [employer] Workers Comp Employer [address] [place] [address] [id number] [employer] Workers Comp Employer [address] [address] Additional Source Comments PLEASE NOTE: Replies to this message will not be received.[facility]
--- OUTSIDE RECORDS SUMMARY | 2024-03-06 15:36 | XMS_ITS | Clinical Summary ---
Author Name Unknown Organization [facility] Address [address] [place] [address] Care Team Providers Care Sanding Machine Tender Name Role Phone Elsewhere, Pcp Primary Care Provider Unavailabl e Source Comments Patient records contain information from all sites at [facility]. For routine questions regarding patient records, call [phone] during business hours, M-F 8:00 AM - 5:00 PM Central Time. Record requests for emergency care only can be directed to [phone] at any time.[facility] Allergies Active Allergy Reactions Criticality Noted Date Comments Bee Venom Protein (Honey Bee) Anaphylaxis 07/18/2019 Influenza Virus Vaccine Trivalent 5412-9310 (2) Other (see comments) 09/26/2023 Latex Rash [...] Overview: Added automatically from request for surgery [id number] Attention Deficit With Hyperactivity Disorder Overview: ADHD Pain Hand Right Resolved Problems Problem Noted Date Diagnosed Date Resolved Date Vomiting 03/01/2019 11/17/2021 Overview: Added automatically from request for surgery [id number] Encounters Date Type Department Care Team Description 01/23/2024 Orders Only Division of Gastroenterology in [address] [phone] Jorge Tirado M.D. Genetic Susceptibility To Disease 01/16/2024 9:30 AM DRIVER MATERIAL HANDLER Clinical Support Department of Occupational Medicine in [address] [phone] Samantha Shabazz M.D., M.P.H. Drug Screen (Primary Dx) Discharge Disposition: Home or Self Care 12/21/2023 11:15 AM DRIVER MATERIAL HANDLER Telemedicine Department of Cardiovascular Medicine in [place], [place] [address] [place] [phone] James Sanchez M.D. Tachycardia Sinus 12/19/2023 9:15 AM DRIVER MATERIAL HANDLER Clinical Communication Virtual Review in [place], [place] 200 [place] [address] Pre-visit Intake from Last 3 Months Immunizations Name Administration [...] Comments ADD Father Manoj finney Hypertension Father Ray sharmin Skin cancer Father Ray walker Sleep apnea Father Ray walker Other cancer Maternal Grandfather Davy finney Skin cancer Maternal Grandfather Davy finney Alopecia Mother Helen finney Sleep apnea Mother Helen finney Melanoma Paternal Grandfather Romel voss Prostate cancer Paternal Grandfather Romel kl Skin cancer Paternal Grandfather Romel klair Stroke Paternal Grandmother Shreya de jesusair Relation Name Status Comments Father Manoj walker Maternal Grandfather Davy walker Mother Helen walker Paternal Grandfather Romel kl Paternal Grandmother Shreya voss Social History Tobacco [...] friends, or neighbors? Twice a week 08/03/20 22 How often do you get togethe r with friends or relatives? Twice a week 2022 How often do you attend chur ch or congregation services? 1 to 4 times per year 2022 Do you belong to any clubs o r organizations such as uatsdin groups, unions, fraternal or athletic groups, or [...] Answer Date Recorded PHQ-2 Score 0 11/16/2022 [facility] of Occupat ional Health - Occupational [...] your living situation today? I have a [facility] place to live 09/20/2023 Education Answer Date [...] complete this topic HPV Vaccines Completed 02/19/2013, 06/2013, 11/08/2012, Additional history exists Meningococcal Vaccine Completed 06/21/2019, 012 Hepatitis B Vaccines Completed 01/30/2024, 08/13/2002, 2001, Additional history exists Medical Devices Implanted Type Area Hotel General Manager Device Identifier Shelf Expiration Date Model / Serial / Lot Gynecologic Other Gynecologic Other Left: Arm Description:Nexplanon Procedures Procedure Name Priority Date/Time Associated Diagnosis Comments THYROID FUNCTION CASCADE, S Routine 07/29/2023 9:55 AM CDT Presyncope Lightheadedness Tachycardia Sinus Palpitations from Last 3 Months or Most Recently Relevant to Health Maintenance Results * Thyroid Function [place] (07/29/2023 9:55 AM CDT) TSH, Sensitive 1.2 0.3 - 4.2 mIU/L 07/29/2023 11:05 AM CDT DTL Blood (Blood, Venous) 07/29/2023 9:55 AM CDT 07/29/2023 10:31 AM CDT Gildardo Lofton APRN, C.N.P. LAB BLOOD ADD-ON [facility] [address] [place] [address], [facility] DTL [facility] [address] [place] [address] from Last 3 Months or Most Recently Relevant to Health Maintenance Advance Directives For more information, please contact: [phone] * Full Code (Latest Code Status on File) Date Activated Date Inactivated Comments 07/18/2019 12:23 PM 07/18/2019 3:09 PM Question Answer Comments Full Code: Discussed Care Teams Sanding Machine Tender Relationship Specialty Start Date End Date Elsewhere, Pcp PCP - General Internal Medicine 08/04/23
--- OUTSIDE RECORDS SUMMARY | 2024-03-06 15:36 | XMS_ITS ---
Author Name Unknown Organization [facility] Address [address] [place] [address] Care Team Providers Care Engraver Set Up Operator Name Role Phone Unavailable Unavailable Unavailable Surgery Details Not on file Complications Check Surgery Details section. Procedure Estimated Blood Loss Check Surgery Details section. Procedure Findings Check Surgery Details section. Procedure Specimens Taken Check Surgery Details section.
--- OUTSIDE RECORDS SUMMARY | 2024-03-06 15:37 | XMS_ITS | Encounter Summary ---
Author Name Unknown Organization [facility] Address [address] [place] [address] Care Team Providers Care Fruit Or Nut Farmer Name Role Phone Elsewhere, Pcp Primary Care Provider Unavailabl e Reason for Visit * Reason Onset Date Comments Pre-visit Intake 12/19/2023 Encounter Details Date Type Department Care Team (Latest Contact Info) Description 12/19/2023 9:15 AM STEAM TANK OPERATOR Clinical Communication Virtual Review in [place], [place] 200 [place] [address] Pre-visit Intake Social History Tobacco Use Types [...] often do you attend chur ch or adventist services? 1 to 4 times per year 2022 Do you belong to any clubs o r organizations such as synagogue groups, unions, fraternal or athletic groups, or [...] Answer Date Recorded PHQ-2 Score 0 11/16/2022 [facility] of Occupat ional [facility] - Occupational Stress Questionnaire Answer Date [...] your living situation today? I have a [facility] place to live 09/20/2023 Education Answer Date [...] on filedocumented in this encounter Care Teams Fruit Or Nut Farmer Relationship Specialty Start Date End Date Elsewhere, Pcp PCP - General Internal Medicine 08/04/23 documented as of this encounter
--- OUTSIDE RECORDS SUMMARY | 2024-03-06 15:37 | XMS_ITS | Encounter Summary ---
Author Name Unknown Organization [facility] Address [address] [place] [address] Care Team Providers Care Quiller Runner Name Role Phone Elsewhere, Pcp Primary Care Provider Unavailabl e Encounter Details Date Type Department Care Team (Late st Contact Info) Description 12/05/2023 Documentation Department of Cardiovascular Medicine in [place], [place] [address] [place] [address] James Sanchez M.D. [address] [place] [phone] Social History Tobacco Use Types Packs/Day Years [...] often do you attend chur ch or anabaptist services? 1 to 4 times per year 2022 Do you belong to any clubs o r organizations such as protestant groups, unions, fraternal or athletic groups, or [...] Answer Date Recorded PHQ-2 Score 0 11/16/2022 [facility] of Occupat ional Health - Occupational [...] your living situation today? I have a [facility] place to live 09/20/2023 Education Answer [...] Mason Sanchez M.D. PGY-4 Cardiovascular Disease Fellow [facility], [place], [place] Pager: [phone] 12/05/2023 11:07 AM SENIOR SOFTWARE ENGINEERING MANAGER OR SOFTWARE ENGINEERING MANAGER documented in this encounter Plan of Treatment Not on file documented as of this encounter Visit Diagnoses Not on filedocumented in this encounter Care Teams Quiller Runner Relationship Specialty Start Date End Date Elsewhere, Pcp PCP - General Internal Medicine 08/04/23 documented as of this encounter
--- OUTSIDE RECORDS SUMMARY | 2024-03-06 15:37 | XMS_ITS | Encounter Summary ---
Author Name Unknown Organization [facility] Address [address] [place] [address] Care Team Providers Care Crop Production Advisor Name Role Phone Elsewhere, Pcp Primary Care Provider Unavailabl e Reason for Referral * Outpatient (Routine) - Authorized Specialty Diagnoses / Procedures Referred By Steff wallace Referred To Contact Cardiovascular Disease James Sanchez M.D. [address] [place] [phone] [facility] Referral ID Status Reason Start Date Expiration Date V isits Requested Visits Authorized [id number] Authorized 12/21/2023 06/21/2025 [address] Sanchez's clinic day once it opens STRIPPER Reason for Visit * Outpatient (Routine) - Closed Specialty Diagnoses / Procedures Referred By Contact Referred To Contact Cardiovascular Diseases / Cardiovascular Disease Diagnoses Tachycardia Sinus James Sanchez M.D. [address] [place] [phone] [facility] Referral ID Status Reason Start Date Expiration Date Visits Re quested Visits Authorized [id number] Closed 09/27/2023 09/26/2024 1 1 Encounter Details Date Type Department Care Team (Latest Contact Info) Description 12/21/2023 11:15 AM REEL STRIPPER Telemedicine Department of Cardiovascular Medicine in [place], [place] [address] [place] [phone] James Sanchez M.D. [address] [place] [phone] Tachycardia Sinus Social History Tobacco Use Types [...] often do you attend chur ch or amish services? 1 to 4 times per year 2022 Do you belong to any clubs o r organizations such as bahai groups, unions, fraternal or athletic groups, or [...] Date Recorded PHQ-2 Score 0 11/16/2022 [facility] - Occupational Stress Questionnaire Answer Date [...] your living situation today? I have a [facility] place to live 09/20/2023 Education [...] from the original note were not included. [facility] Cardiovascular Disease Office Visit - Follow-Up Note [...] propranolol for suspected inappropriate sinus tachycardia/POTS. At [place], we ordered a MoME, which noted overall [...] M.D. PGY-4 Cardiovascular Disease Fellow [facility], [place], [place] Pager: [phone] 12/21/2023 11:31 AM REEL STRIPPER STRIPPER documented in this encounter Plan of Treatment [...] Sinus documented in this encounter Care Teams Crop Production Advisor Relationship Specialty Start Date End Date Elsewhere, Pcp PCP - General Internal Medicine 08/04/23 documented as of this encounter
--- OUTSIDE RECORDS SUMMARY | 2024-03-06 15:37 | XMS_ITS | Clinical Summary ---
Author Name Unknown Organization [facility] [facility] Address [place], [place] [address] Care Team Providers Care Canal Superintendent Name Role Phone Jose Johnson MD Primary Care Provider Allergies Active Allergy Reactions Criticality Noted Date [...] - - Pulse 112 11/13/2021 1:51 PM LOG BRANDER Temperature 37.1 ??C (98.8 ??F) 11/13/2021 1:51 PM CS T Respiratory Rate - - Oxygen Saturation 99% 11/13/2021 1:51 PM LOG BRANDER Inhaled Oxygen Concentration - - Weight - [...] age to complete this topic Care Teams Canal Superintendent Relationship Specialty [place] [address] [phone] PCP - General 05/12/07
== END 2024-03-06 15:35 | disposition home or self-care (01) ==
LOC: LKVREF 15:34
PROVIDERS: PCP Nurse Practitioner Family; Visit Provider Otolaryngology
DX: G25.81 Restless legs syndrome (principal)
CPT/HCPCS: 82728

== ENCOUNTER 2024-03-13 08:47 | Outpatient (CLI) | payer BC, SELFPAY ==
--- OUTSIDE RECORDS SUMMARY | 2024-03-13 08:50 | XMS_ITS | Clinical Summary ---
Author Name Unknown Organization [employer] [facility] Address [place], [place] [address] Care Team Providers Care Content Analyst Name Role Phone Jose Johnson MD Primary Care Provider [phone] Allergies Active Allergy Reactions Criticality Noted Date [...] - - Pulse 112 11/13/2021 1:51 PM BRIDGE ATTACHER Temperature 37.1 ??C (98.8 ??F) 11/13/2021 1:51 PM CS T Respiratory Rate - - Oxygen Saturation 99% 11/13/2021 1:51 PM BRIDGE ATTACHER Inhaled Oxygen Concentration - - Weight - [...] age to complete this topic Care Teams Content Analyst Relationship Specialty [place] [address] [phone] PCP - General 05/12/07
--- OUTSIDE RECORDS SUMMARY | 2024-03-13 08:50 | XMS_ITS | Encounter Summary ---
Author Name Unknown Organization [facility] Address [address] [place] [address] Care Team Providers Care Booking Police Officer Name Role Phone Elsewhere, Pcp Primary Care Provider Unavailabl e Encounter Details Date Type Department Care Team (Late st Contact Info) Description 01/23/2024 Orders Only Division of Gastroenterology in [place], [place] [address] [place] [phone] Jorge Tirado M.D. [address] [place] [phone] Genetic Susceptibility To Disease Social History Tobacco [...] often do you attend chur ch or mosque services? 1 to 4 times per year 2022 Do you belong to any clubs o r organizations such as denominational groups, unions, fraternal or athletic groups, or [...] living? No 09/20/2023 Nutrition Answer Date Recorded On average, how many serving s of [...] your living situation today? I have a [facility] place to live 09/20/2023 Education Answer [...] Comments EXT TAPESTRY Routine 09/30/2022 12:00 AM TELEVISION TUBE INSPECTOR Genetic Susceptibility To Disease documented in this encounter Results * EXT Tapestry (09/30/2022 12:00 AM TELEVISION TUBE INSPECTOR) Gene Studied BRCA1,BRCA2,MLH1,MSH 2, MSH6,PMS2,EPCAM,APOB,L DLR,LDLRAP1,PCSK9 11/11/2022 12:00 AM TELEVISION TUBE INSPECTOR ARNOLDO Genetic Disease Assessed Evaluation of 11 genes associated with Hereditary Breast and Ovarian Cancer, Marie Syndrome and Familial Hypercholesterolemia. 11/11/2022 12:00 AM TELEVISION TUBE INSPECTOR ARNOLDO Genetic Analysis Overall Interpretation Negative results through Tapestry do not replace diagnostic testing for patients with a personal or family history of cancer/hypercholestero lemia due to limitations with methodology. Consider a referral to a genetic counselor for diagnostic testing if warranted. 11/11/2022 12:00 AM TELEVISION TUBE INSPECTOR ARNOLDO Genetic Analysis Report See Tapestry PDF Report [...] enriched using a custom set of reagents ([employer]+ chemistry). Targeted regions were sequenced using an Illumina DNA sequencing system. Your sequence was matched to a modified version of the industry standard reference genome (GRCh38). Variant calling was completed using a customized version of [employer]'s [employer] software, requiring 20x coverage for validated variant calls. Copy Number Variants (CNVs) were called using a proprietary bioinformatics pipeline that compared the coverage profile of your sample with the coverage profiles of other reference set samples. [facility] Serometrix then analyzed the generated variant data for the exons and 10 bp of flanking intronic sequence (and select tagged intronic variants) of the 11 genes included in [employer] from the [employer] Database. Your sample was reviewed for single [...] assessments and medical management. 11/11/2022 12:00 AM PixelEXX Systems Human Reference Sequence Assembly [id number] 11/11/2022 12:00 AM oLyfe ARNOLDO Saliva (Mouth) 09/30/2022 Jorge Tirado M.D. LAB GENETI C TESTING HELIX PICS Auditing [id number] [facility], [address] [place] [address], [facility] ARNOLDO Rocket Relief [address] [facility], [address]. [place] [address] documented in this encounter Visit Diagnoses Diagnosis Genetic Susceptibility To Disease documented in this encounter Care Teams Booking Police Officer Relationship Specialty Start Date End Date Elsewhere, Pcp PCP - General Internal Medicine 08/04/23 documented as of this encounter
--- OUTSIDE RECORDS SUMMARY | 2024-03-13 08:50 | XMS_ITS ---
Author Name Unknown Organization [facility] Address [address] [place] [address] Care Team Providers Care Rougher Operator Name Role Phone Unavailable Unavailable Unavailable Surgery Details Not on file Complications Check Surgery Details section. Procedure Estimated Blood Loss Check Surgery Details section. Procedure Findings Check Surgery Details section. Procedure Specimens Taken Check Surgery Details section.
--- OUTSIDE RECORDS SUMMARY | 2024-03-13 08:50 | XMS_ITS | Clinical Summary ---
Author Name Unknown Organization [employer] [facility] Address [address] [place] [address] Care Team Providers Care Eradicator Name Role Phone Unavailable Primary Care Provider [...] of Nexplan on 06/04/2021 Overview: Nexplanon Lot #[id number] ; Expiration date: 05/14/2023; Insertion date: 06/04/21 Removal date: 06/04/2024 Displaced fracture of capita te (os magnum) bone, unspecified wrist, initial encounter for open fracture 12/10/2020 Mild intermittent asthma without complication Epigastric pain 03/01/2019 Overview: Added automatically from request for surgery [id number] Attention deficit hyperactivity disorder (ADHD) 06/09/2007 Anxiety state, unspecified 06/09/2007 Overview: ICD10 Regulatory Release Disturbance of conduct 06/09/2007 Overview: 02/12/22 IMO Regulator Release Replacements Hypothyroidism 06/08/2004 Overview: Problem list name updated by automated process. Provider to review Immunizations Name Administration Dates Next Due [id number] Vaccine, IM (Pentacel) 2001 DTaP Vac, <7 [...] week 01/07/2022 How often do you attend [facility] or restorationism services? 1 to 4 times per year [...] medical care, and heating? Somewhat hard 01/07/2022 [facility] [place] of Occupat ional Health - Occupational Stress [...] place to sleep or slept in a long-term (including now)? No 01/07/2022 Depression (PHQ-9) Answer [...] DT Respiratory Rate 14 01/01/2022 10:15 AM ORE GRADER Oxygen Saturation 100% 03/18/2022 11:40 AM CDT [...] Personal/Family Self 2000 [address] [place] [address] Claudia Leach Third Democrat Liability Self 2000 [address] [address] [id number] S INC[employer]URYN Workers Comp Employer [address] [place] [address] [id number] S [employer] Workers Comp Employer [address] [place] [address] Additional Source Comments PLEASE NOTE: Replies to this message will not be received.[facility]
--- OUTSIDE RECORDS SUMMARY | 2024-03-13 08:50 | XMS_ITS | Encounter Summary ---
Author Name Unknown Organization [facility] Address [address] [place] [address] Care Team Providers Care Motor Transport Inspector Name Role Phone Elsewhere, Pcp Primary Care Provider Unavailabl e Reason for Referral * Outpatient (Routine) - Authorized Specialty Diagnoses / Procedures Referred By Steff wallace Referred To Contact Cardiovascular Disease James Sanchez M.D. [address] [place] [phone] [facility] Referral ID Status Reason Start Date Expiration Date V isits Requested Visits Authorized [id number] Authorized 12/21/2023 06/21/2025 [address] Sanchez's clinic day once it opens RVISOR LIME Reason for Visit * Outpatient (Routine) - Closed Specialty Diagnoses / Procedures Referred By Contact Referred To Contact Cardiovascular Diseases / Cardiovascular Disease Diagnoses Tachycardia Sinus James Sanchez M.D. [address] [place] [phone] [facility] Referral ID Status Reason Start Date Expiration Date Visits Re quested Visits Authorized [id number] Closed 09/27/2023 09/26/2024 1 1 Encounter Details Date Type Department Care Team (Latest Contact Info) Description 12/21/2023 11:15 AM SUPERVISOR LIME Telemedicine Department of Cardiovascular Medicine in [place], [place] [address] [place] [phone] James Sanchez M.D. [address] [place] [phone] Tachycardia Sinus Social History Tobacco Use Types [...] often do you attend chur ch or adventism services? 1 to 4 times per year 2022 Do you belong to any clubs o r organizations such as holiness groups, unions, fraternal or athletic groups, or [...] Answer Date Recorded PHQ-2 Score 0 11/16/2022 [facility] - Occupational Stress Questionnaire Answer Date Recorded [...] your living situation today? I have a [facility] place to live 09/20/2023 Education Answer [...] from the original note were not included. [facility] Cardiovascular Disease Office Visit - Follow-Up Note [...] propranolol for suspected inappropriate sinus tachycardia/POTS. At [place], we ordered a MoME, which noted overall [...] Sanchez M.D. PGY-4 Cardiovascular Disease Fellow [facility], [place], [place] Pager: [phone] 12/21/2023 11:31 AM SUPERVISOR LIME RVISOR LIME documented in this encounter Plan of Treatment [...] Sinus documented in this encounter Care Teams Motor Transport Inspector Relationship Specialty Start Date End Date Elsewhere, Pcp PCP - General Internal Medicine 08/04/23 documented as of this encounter
--- OUTSIDE RECORDS SUMMARY | 2024-03-13 08:50 | XMS_ITS | Clinical Summary ---
Author Name Unknown Organization [facility] Address [address] [place] [address] Care Team Providers Care Oil Lease Broker Name Role Phone Elsewhere, Pcp Primary Care Provider Unavailabl e Source Comments Patient records contain information from all sites at [facility]. For routine questions regarding patient records, call [phone] during business hours, M-F 8:00 AM - 5:00 PM Central Time. Record requests for emergency care only can be directed to [phone] at any time.[facility] Allergies Active Allergy Reactions Criticality Noted Date Comments Bee Venom Protein (Honey Bee) Anaphylaxis 07/18/2019 Influenza Virus Vaccine Trivalent [id number] (2) Other (see comments) 09/26/2023 Latex Rash Medium 08/22/2020 Venom-Honey Bee Anaphylaxis,Hives (R eselect Reaction) High 07/18/2019 Medications Medication Sig Dispensed Refills Start Date End Date Status cholecalciferol (for_VITAMIN D3) 2,000 Unit tablet Take 1 tablet by mouth daily. 4 Active EPINEPHRINE INJ Inject 0.3 mg intramuscularly once. 5 Active etonogestreL (NEXPLANON) 68 mg subdermal implant 8 Active escitalopram (LEXAPRO) 20 mg tablet Take 1 tablet by mouth daily. 0 Active busPIRone (BUSPAR) 10 mg tablet Take 10 mg by mouth 2 (two) times a day. 0 Active pantoprazole (PROTONIX) 40 mg EC tablet TAKE 1 TABLET BY MOUTH ONCE DAILY ON AN EMPTY STOMACH 1 Active clindamycin (CLEOCIN T) 1 % swab Apply 1 Application topically 2 (two) times a day. 1 Active albuterol 2.5 mg /3 mL nebulizer solutionIndicatio ns:Asthma Exacerbation (HCC) Inhale 3 mL (2.5 mg total) by nebulization every 4 (four) hours as needed for wheezing or shortness of breath. 225 mL 3 3 Active levothyroxine (SYNTHROID, LEVOTHROID) 125 mcg tablet Take 125 mcg by mouth every morning before breakfast. Active metoprolol tartrate (LOPRESSOR) 25 mg tablet Take 1 tablet (25 mg total) by mouth 2 (two) times a day. 120 tablet 1 4 Active propranoloL (INDERAL LA) 60 mg 24 hr capsule Take 1 capsule (60 mg total) by mouth daily. 90 capsule 3 2 03/12/20 24 Discontinu ed(Therapy completed) Active Problems Problem Noted Date Diagnosed Date Hypothyroidism 07/18/2019 Pain Epigastric 03/01/2019 Overview: Added automatically from request for surgery [id number] Attention Deficit With Hyperactivity Disorder Overview: ADHD Pain Hand Right Resolved Problems Problem Noted Date Diagnosed Date Resolved Date Vomiting 03/01/2019 11/17/2021 Overview: Added automatically from request for surgery [id number] Encounters Date Type Department Care Team Description 03/12/2024 9:25 AM CDT - 03/12/2024 11:31 AM CDT Emergency [facility] [address] [place] [id number] Thuan Horton M.D. Injury Hip Initial Right (Primary Dx); Injury Leg Initial Right Discharge Disposition: Home or Self Care 01/23/2024 Orders Only Division of Gastroenterology in [place], [place] [address] [place] [address] Jorge Tirado M.D. Genetic Susceptibility To Disease 01/16/2024 9:30 AM [facility] Clinical Support Department of Occupational Medicine in [address] [address] Samantha Shabazz M.D., M.P.H. Drug Screen (Primary Dx) Discharge Disposition: Home or Self Care 12/21/2023 11:15 AM ADMINISTRATIVE RECEPTIONIST Telemedicine Department of Cardiovascular Medicine in [place], [place] [address] [place] [address] James Sanchez M.D. Tachycardia Sinus 12/19/2023 9:15 AM ADMINISTRATIVE RECEPTIONIST Clinical Communication Virtual Review in [place], [place] [address] [place] [address] Pre-visit Intake from Last 3 Months Immunizations [...] Medical History Relation Name Comments ADD Father Ray walker Hypertension Father Ray walker Skin cancer Father Ray walker Sleep apnea Father Ray walker Other cancer Maternal Grandfather Davy walker Skin cancer Maternal Grandfather Davy walker Alopecia Mother Helen finney Sleep apnea Mother Helen finney Melanoma Paternal Grandfather Romel voss Prostate cancer Paternal Grandfather Romel klair Skin cancer Paternal Grandfather Romel klair Stroke Paternal Grandmother Shreya bipin Relation Name Status Comments Father Ray walker Maternal Grandfather Davy walker Mother Helen walker Paternal Grandfather Romel klair Paternal Grandmother Shreya bipin Social History Tobacco Use Types Packs/Day Years [...] often do you attend chur ch or advent services? 1 to 4 times per year 2022 Do you belong to any clubs o r organizations such as catholic groups, unions, fraternal or athletic groups, or [...] Answer Date Recorded PHQ-2 Score 0 11/16/2022 [facility] of Occupat ional Health - Occupational Stress [...] your living situation today? [facility] to live 09/20/2023 Education Answer [...] Sign Reading Time Taken Comments Blood Pressure 137/100 03/12/2024 9:30 AM CDT Pulse 85 03/12/2024 9:30 AM CDT Temperature 37.2 ??C (99 ??F) 03/12/2024 9:28 AM CDT Respiratory Rate 20 03/12/2024 9:28 AM CDT Oxygen Saturation 98% 03/12/2024 9:30 AM CDT Inhaled Oxygen Concentration - - Weight 71.9 kg (158 lb 8.2 oz) 08/05/2023 8:00 A M CDT Height 175.3 cm (5' 9) 03/12/2024 9:26 AM CDT Body Mass Index 23.03 08/05/2023 8:00 AM [...] history exists Medical Devices Implanted Type Area Testing And Regulating Technician Device Identifier Shelf Expiration Date Model / Serial / Lot Gynecologic Other Gynecologic Other Left: Arm Description:Nexplanon Procedures Procedure Name Priority Date/Time Associated Diagnosis Comments DX FEMUR RIGHT 2 VIEWS RAD - Semiurgent (Fast; most ED patients; some inpatients) 03/12/2024 10:40 AM CDT DX PELVIS 1-2 VIEWS RAD - Semiurgent (Fast; most ED patients; some inpatients) 03/12/2024 10:39 AM CDT THYROID FUNCTION CASCADE, S Routine 07/29/2023 9:55 AM CDT Presyncope Lightheadedness Tachycardia Sinus Palpitations from Last 3 Months or Most Recently Relevant to Health Maintenance Results * DX Femur Right 2 Views (03/12/2024 10:40 AM CDT) Anatomical Region Laterality Modality Lower Extremity, Femur, Musc uloskeletal RST LOS, Musculoskeletal ARZ LOS, Muskuloskeletal FLA LOS Right Digit al Radiography Impressions 03/12/2024 10:44 AM CDT Comparison 01/03/12. Unchanged notch-like defect of the fovea capitis of the right femoral head is unchanged and compatible with normal variant. Negative for acute fracture or joint dislocation. Otherwise negative pelvis and right femur. Narrative 03/12/2024 10:44 AM CDT EXAM: DX PELVIS 1-2 VIEWS, DX FEMUR RIGHT 2 VIEWS Procedure Note Ramu Mello M.D. - 03/12/2024 EXAM: DX PELVIS 1-2 VIEWS, DX FEMUR RIGHT 2 VIEWS IMPRESSION: Comparison 01/03/12. Unchanged notch-like defect of the fovea capitis ofthe right femoral head is unchanged and compatible with normal variant.Negative for acute fracture or joint dislocation. Otherwise negativepelvis and right femur. Thuan Horton M.D. [facility] OLIVIA GING PROCEDURES * DX Pelvis 1-2 Views (03/12/2024 10:39 AM CDT) Anatomical Region Laterality Modality Pelvis, Musculoskeletal RST LOS, Musculoskeletal ARZ LOS, Muskuloskeletal FLA LOS N/A Digital Radiography Impressions 03/12/2024 10:44 AM CDT Comparison 01/03/12. Unchanged notch-like defect of the fovea capitis of the right femoral head is unchanged and compatible with normal variant. Negative for acute fracture or joint dislocation. Otherwise negative pelvis and right femur. Narrative 03/12/2024 10:44 AM CDT EXAM: DX PELVIS 1-2 VIEWS, DX FEMUR RIGHT 2 VIEWS Procedure Note Ramu Mello M.D. - 03/12/2024 EXAM: DX PELVIS 1-2 VIEWS, DX FEMUR RIGHT 2 VIEWS IMPRESSION: Comparison 01/03/12. Unchanged notch-like defect of the fovea capitis ofthe right femoral head is unchanged and compatible with normal variant.Negative for acute fracture or joint dislocation. Otherwise negativepelvis and right femur. Thuan Horton M.D. IMG [facility]AGNO[facility] OLIVIA GING PROCEDURES * Thyroid Function [place] (07/29/2023 9:55 AM CDT) TSH, Sensitive 1.2 0.3 - 4.2 mIU/L 07/29/2023 11:05 AM CDT DTL Blood (Blood, Venous) 07/29/2023 9:55 AM CDT 07/29/2023 10:31 AM CDT Gildardo Lofton APRN, C.N.P. LAB BLOOD ADD-ON [facility] [address] [place] [address], [facility] [address] [place] [address] from Last 3 Months or Most Recently Relevant to Health Maintenance Advance Directives For more information, please contact: [phone] * Full Code (Latest Code Status on File) Date Activated Date Inactivated Comments 07/18/2019 12:23 PM 07/18/2019 3:09 PM Question Answer Comments Full Code: Discussed Care Teams Oil Lease Broker Relationship Specialty Start Date End Date Elsewhere, Pcp PCP - General Internal Medicine 08/04/23
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
--- OUTSIDE RECORDS SUMMARY | 2024-03-13 08:50 | XMS_ITS | Encounter Summary ---
Author Name Unknown Organization [facility] Address [address] [place] [address] Care Team Providers Care Vice President Diversity Name Role Phone Sofia Chavis DO Primary Care Provider [phone] Encounter Details Date Type Department Care Team Description 08/30/[address] HIM Internet Marketing Assistant [facility] Family Medicine [address] [place] [address] Casey Grayson MD [address] [place] [address] Social History Tobacco Use Types Packs/Day [...] often do you attend chur ch or temple services? Never 06/01/2021 Do you belong to [...] medical care, and heating? Somewhat hard 06/01/2021 [facility] of Occupat ional Health - Occupational [...] place to sleep or slept in a care home (including now)? Yes 06/01/2021 Depression (PHQ-9) Answer [...] Grayson MD jml P P Doc #: [id number] documented in this encounter Plan of Treatment Not on file documented as of this encounter Visit Diagnoses Not on filedocumented in this encounter Additional Health Concerns Infection Onset Date Last Indicated Resolved Time COVID-19 Rule Out 09/28/2021 09/28/2021 09/29/2021 12:38 PM REAL ESTATE ADMINISTRATOR COVID-19 Rule Out 12/14/2021 12/14/2021 12/15/2021 6:40 PM REAL ESTATE ADMINISTRATOR COVID-19 Rule Out 01/01/2022 01/01/2022 01/01/2022 10:04 AM REAL ESTATE ADMINISTRATOR Respiratory Rule-Out 01/01/2022 01/01/2022 022 10:03 AM REAL ESTATE ADMINISTRATOR documented as of this encounter Care Teams Vice President Diversity Relationship Specialty Start Date End Date Sofia Chavis DO [address] [place] [address] PCP - General Family Medicine 08/15/20 03/31/22 documented as of this encounter Additional Source Comments PLEASE NOTE: Replies to this message will not be received.[facility]
--- OUTSIDE RECORDS SUMMARY | 2024-03-13 08:50 | XMS_ITS | Encounter Summary ---
Author Name Unknown Organization [facility] Address [address] [place] [address] Care Team Providers Care Supply Clerk Name Role Phone Elsewhere, Pcp Primary Care Provider Unavailabl e Reason for Visit * Reason Onset Date Comments Pre-visit Intake 12/19/2023 Encounter Details Date Type Department Care Team (Latest Contact Info) Description 12/19/2023 9:15 AM ROLLER PRINTER Clinical Communication Virtual Review in [place], [place] [address] [place] [address] Pre-visit Intake Social History Tobacco Use Types [...] often do you attend chur ch or tenriism services? 1 to 4 times per year 2022 Do you belong to any clubs o r organizations such as samaritan groups, unions, fraternal or athletic groups, or [...] Answer Date Recorded PHQ-2 Score 0 11/16/2022 [facility] of Occupat ional [facility] - Occupational Stress Questionnaire Answer [...] your living situation today? I have a [facility] place to live 09/20/2023 Education [...] on filedocumented in this encounter Care Teams Supply Clerk Relationship Specialty Start Date End Date Elsewhere, Pcp PCP - General Internal Medicine 08/04/23 documented as of this encounter
--- OUTSIDE RECORDS SUMMARY | 2024-03-13 08:50 | XMS_ITS | Encounter Summary ---
Author Name Unknown Organization [facility] Address [address] [place] [address] Care Team Providers Care Curator Medical Museum Name Role Phone Elsewhere, Pcp Primary Care Provider Unavailabl e Reason for Referral * Outpatient (Routine) - Authorized Specialty Diagnoses / Procedures Referred By Contjules t Referred To Contact Diagnoses Drug Screen Procedures OCC Drug screening Samantha Shabazz M.D., M.P.H. [address] [place] [address] [facility] Referral ID Status Reason Start Date Expiration Date V isits Requested Visits Authorized [id number] Authorized 01/16/2024 01/15/2025 1 1 ATIC READER Reason for Visit * Reason Comments Drug Screen [facility] Encounter Details Date Type Department Care Team (Latest Contact Info) Description 01/16/2024 9:30 AM DRAMATIC READER Clinical Support Department of Occupational Medicine in [place], [place] [address] [place] [address] Samantha Shabazz M.D., M.P.H. [address] [place] [address] Drug Screen (Primary Dx) Discharge [...] often do you attend chur ch or scientologist services? 1 to 4 times per year 2022 Do you belong to any clubs o r organizations such as pentecostal groups, unions, fraternal or athletic groups, or [...] Answer Date Recorded PHQ-2 Score 0 11/16/2022 [facility] [place] of Occupat ional Health - Occupational Stress [...] your living situation today? I have a [facility] place to live 09/20/2023 Education Answer [...] 01/16/2024 9:30 AM CST Pre-employment uds for [facility]. Uneventful collection ATIC READER documented in this encounter Plan of Treatment Scheduled Orders Name Type Priority Associated Diagnoses Orde r Schedule OCC Drug screening Procedures Routine Drug Screen Ordered: 01/16/2024 documented as of this encounter Visit Diagnoses Diagnosis Drug Screen- Primary documented in this encounter Care Teams Curator Medical Museum Relationship Specialty Start Date End Date Elsewhere, Pcp PCP - General Internal Medicine 08/04/23 documented as of this encounter
--- OUTSIDE RECORDS SUMMARY | 2024-03-13 08:50 | XMS_ITS | Encounter Summary ---
Author Name Unknown Organization [facility] Address [address] [place] [address] Care Team Providers Care Microsoft Dynamics Consultant Name Role Phone Elsewhere, Pcp Primary Care Provider Unavailabl e Encounter Details Date Type Department Care Team (Late st Contact Info) Description 12/05/2023 Documentation Department of Cardiovascular Medicine in [place], [place] [address] [place] [address] James Sanchez M.D. [address] [place] [phone] Social History Tobacco Use Types Packs/Day Years [...] often do you attend chur ch or yazdanism services? 1 to 4 times per year 2022 Do you belong to any clubs o r organizations such as sikh groups, unions, fraternal or athletic groups, or [...] your living situation today? I have a [facility] place to live 09/20/2023 Education [...] CVD Clinic Note Received portal message from Ms. Hany antonio HR has been persistently >90 and mostly >100bpm, symptomatic (mainly with fatigue) despite conservative measures. Will start metoprolol tartrate 25 mg BID with close HR and BP monitoring. Mason Sanchez M.D. PGY-4 Cardiovascular Disease Fellow [facility], [place], [place] Pager: [phone] 12/05/2023 11:07 AM BED MAKER MAKER documented in this encounter Plan of Treatment Not on file documented as of this encounter Visit Diagnoses Not on filedocumented in this encounter Care Teams Microsoft Dynamics Consultant Relationship Specialty Start Date End Date Elsewhere, Pcp PCP - General Internal Medicine 08/04/23 documented as of this encounter
--- OUTSIDE RECORDS SUMMARY | 2024-03-13 08:50 | XMS_ITS | Referral Summary ---
Author Name Unknown Organization [facility] Address [address] [place] [address] Care Team Providers Care Baggage Handler Name Role Phone Elsewhere, Pcp Primary Care Provider Unavailabl e Source Comments Patient records contain information from all sites at [facility]. For routine questions regarding patient records, call [phone] during business hours, M-F 8:00 AM - 5:00 PM Central Time. Record requests for emergency care only can be directed to [phone] at any time.[facility] Encounters Date Type Department Care Team Description 03/12/2024 9:25 AM CDT - 03/12/2024 11:31 AM CDT Emergency [facility] [address] [place] [phone] Thuan Horton M.D. Injury Hip Initial Right (Primary Dx); Injury Leg Initial Right Discharge Disposition: Home or Self Care 01/23/2024 Orders Only Division of Gastroenterology in [place], [place] [address] [place] [address] Jorge Tirado M.D. Genetic Susceptibility To Disease 01/16/2024 9:30 AM ENROLLMENT COORDINATOR Clinical Support Department of Occupational Medicine in [address] [address] Samantha Shabazz M.D., M.P.H. Drug Screen (Primary Dx) Discharge Disposition: Home or Self Care 12/21/2023 11:15 AM ENROLLMENT COORDINATOR Telemedicine Department of Cardiovascular Medicine in [place], [place] [address] [place] [address] James Sanchez M.D. 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 1 to 4 times per year [...] Answer Date Recorded PHQ-2 Score 0 11/16/2022 [facility] [place] of Occupat ional Health - Occupational Stress [...] your living situation today? I have a [facility] place to live 09/20/2023 Education Answer [...] on file Medical Devices Implanted Type Area Biomed Tech Device Identifier Shelf Expiration Date Model / [...] DIAGNOSTIC OLIVIA GING PROCEDURES * Thyroid Function Coffey (07/29/2023 9:55 AM CDT) TSH, Sensitive 1.2 0.3 - 4.2 mIU/L 07/29/2023 11:05 AM CDT DTL Blood (Blood, Venous) 07/29/2023 9:55 AM CDT 07/29/2023 10:31 AM CDT Gildardo Lofton APRN, C.N.P. LAB BLOOD ADD-ON [facility] [address] [place] [address], [facility] [address] [place] [address] from Last 3 Months or Most Recently Relevant to Health Maintenance Advance Directives For more information, please contact: [phone] * Full Code (Latest Code Status on File) Date Activated Date Inactivated Comments 07/18/2019 12:23 PM 07/18/2019 3:09 PM Question Answer Comments Full Code: Discussed Care Teams Baggage Handler Relationship Specialty Start Date End Date Elsewhere, Pcp PCP - General Internal Medicine 08/04/23
--- NOTE | 2024-03-13 09:00 | CT_ITS ---
Patient: MARLENA DE LA ROSA Facility:?[facility] RIS Patient ID:?[id number] Site Patient ID:?[id number]. Site :?2001 Study:?CT-Sinus -03/13/2024 11:10:58 AM Ordering Physician:?DR. ELIZABETH Final Report: Indication: CHRONIC SINUSITIS Technique: Performed without IV contrast Comparison: None available Findings: Frontal sinuses: Clear. 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 Unremarkable left ethmoid sinus. Maxillary sinuses: 1.3 cm mucous retention cyst within the right maxillary sinus. Clear left maxillary sinus the maxillary sinus drainage pathways are patent on both sides. Sphenoid sinuses: Minimal mucosal thickening within the left sphenoid sinus. Clear right sphenoid sinus. Patent sphenoethmoidal recesses. Nasal Cavity: No nasal polyps. Nasal septum is relatively midline. No TMJ abnormalities identified. The visualized portions of the orbits, intracranial contents and upper soft tissue neck are grossly negative. Impression: 1. Mild sinus disease involving the right maxillary sinus and left sphenoid sinus. Clear sinus drainage pathways. 2. Midline nasal septum. Please note that all CT scans at this facility use dose modulation, iterative reconstruction, and/or weight-based dosing when appropriate to reduce radiation dose to as low as reasonably achievable. Dictated by Ramu Cornell MD @ 03/13/2024 12:51:56 PM Signed by:?Ramu Cornell MD @03/13/2024 12:51:56 PM (Electronic Signature)
== END 2024-03-13 08:48 | disposition home or self-care (01) ==
LOC: CT 08:48
PROVIDERS: PCP Nurse Practitioner Family; Visit Provider Otolaryngology
DX: J32.9 Chronic sinusitis, unspecified (principal); J32.0 Chronic maxillary sinusitis; J34.2 Deviated nasal septum
CPT/HCPCS: 70486

== ENCOUNTER 2024-04-02 20:08 | Outpatient (CLI) | payer OTHER, BC, SELFPAY ==
--- OUTSIDE RECORDS SUMMARY | 2024-04-02 20:13 | XMS_ITS | Encounter Summary ---
Author Name Unknown Organization [facility] Address [address] [place] [address] Care Team Providers Care Track Repair Worker Name Role Phone Sofia Chavis DO Primary Care Provider [phone] Encounter Details Date Type Department Care Team (Late st Contact Info) Description 08/30/2021 HIM Plant Maintenance Manager [facility] Family Medicine [address] [place] [address] Casey Grayson MD [address] [place] [address] Social History Tobacco Use Types Packs/Day [...] you attend chur ch or sabianist services? Never 06/01/2021 Do you belong to any clubs o r organizations such as anabaptism groups, unions, fraternal or athletic groups, or [...] medical care, and heating? Somewhat hard 06/01/2021 [facility] of Occupat ional Health - [...] medical appointments or from getting medications? No 05/14 In the past 12 months, has l [...] place to sleep or slept in a usp (including now)? Yes 06/01/2021 Depression (PHQ-9) Answer [...] Grayson MD jml P P Doc #: [id number] documented in this encounter Plan of Treatment Not on file documented as of this encounter Visit Diagnoses Not on filedocumented in this encounter Additional Health Concerns Infection Onset Date Last Indicated Resolved Time COVID-19 Rule Out 09/28/2021 09/28/2021 09/29/2021 12:38 PM TOP COLLAR BASTER COVID-19 Rule Out 12/14/2021 12/14/2021 12/15/2021 6:40 PM TOP COLLAR BASTER COVID-19 Rule Out 01/01/2022 01/01/2022 01/01/2022 10:04 AM TOP COLLAR BASTER Respiratory Rule-Out 01/01/2022 01/01/2022 022 10:03 AM TOP COLLAR BASTER documented as of this encounter Care Teams Track Repair Worker Relationship Specialty Start Date End Date Sofia Chavis DO [address] [place] [address] PCP - General Family Medicine 08/15/20 03/31/22 documented as of this encounter Additional Source Comments PLEASE NOTE: Replies to this message will not be received.[facility]
--- OUTSIDE RECORDS SUMMARY | 2024-04-02 20:13 | XMS_ITS ---
Author Name Unknown Organization [facility] Address [address] [place] [address] Care Team Providers Care Broadcast Technician Name Role Phone Unavailable Unavailable Unavailable Surgery Details Not on file Complications Check Surgery Details section. Procedure Estimated Blood Loss Check Surgery Details section. Procedure Findings Check Surgery Details section. Procedure Specimens Taken Check Surgery Details section.
--- OUTSIDE RECORDS SUMMARY | 2024-04-02 20:13 | XMS_ITS | Referral Summary ---
Author Name Unknown Organization [facility] Address [address] [place] [address] Care Team Providers Care Supervisor Files Name Role Phone Elsewhere, Pcp Primary Care Provider Unavailabl e Source Comments Patient records contain information from all sites at [facility]. For routine questions regarding patient records, call [phone] during business hours, M-F 8:00 AM - 5:00 PM Central Time. Record requests for emergency care only can be directed to [phone] at any time.[facility] Encounters Date Type Department Care Team Description 03/20/2024 8:15 AM CDT Office Visit Department of Occupational Medicine in [address] [phone] Audrey Reyna P.Dave.-C., P.A. Injury Hip Initial Right; Injury Leg Initial Right Discharge Disposition: Home or Self Care 03/14/2024 11:15 AM CDT Comprehensive Visit Department of Occupational Medicine in [address] [address] Audrey Reyna P.A.-C., P.A. Injury Hip Initial Right; Injury Leg Initial Right Discharge Disposition: Home or Self Care 03/12/2024 9:25 AM CDT - 03/12/2024 11:31 AM CDT Emergency [facility] [address] [place] [phone] Thuan Horton M.D. Injury Hip Initial Right (Primary Dx); Injury Leg Initial Right Discharge Disposition: Home or Self Care 01/23/2024 Orders Only Division of Gastroenterology in [place], [place] [address] [place] [address] Jorge Tirado M.D. Genetic Susceptibility To Disease 01/16/2024 9:30 AM EMERGENCY GENERATOR MECHANIC Clinical Support Department of Occupational Medicine in [address] [address] Samantha Shabazz M.D., M.P.H. Drug Screen (Primary Dx) Discharge Disposition: Home or Self Care from Last 3 Months Allergies Active Allergy Reactions Criticality Noted Date Comments Bee Venom Protein (Honey Bee) Anaphylaxis 07/18/2019 Influenza Virus Vaccine Trivalent 7481-8453 (2) Other (see comments) 09/26/2023 Latex Rash [...] Overview: Added automatically from request for surgery [id number] Attention Deficit With Hyperactivity Disorder Overview: ADHD Pain Hand Right Resolved Problems Problem Noted Date Diagnosed Date Resolved Date Vomiting 03/01/2019 11/17/2021 Overview: Added automatically from request for surgery [id number] Immunizations Name Administration Dates Next Due 4vHPV [...] Never Smokeless Tobacco: Never Tobacco Cessation:Counseling Given: Not [...] often do you attend chur ch or hinduism services? 1 to 4 times per year 2022 Do you belong to any clubs o r organizations such as faith groups, unions, fraternal or athletic groups, or [...] your living situation today? I have a [facility] place to live 09/20/2023 Education Answer Date [...] Sign Reading Time Taken Comments Blood Pressure 110/60 03/20/2024 8:01 AM CDT Pulse 68 03/20/2024 8:01 AM CDT Temperature 37.2 ??C (99 ??F) 03/20/2024 8:01 AM CDT Respiratory Rate 18 03/20/2024 8:01 AM CDT Oxygen Saturation 98% 03/12/2024 9:30 AM CDT Inhaled Oxygen Concentration - - Weight 86.4 kg (190 lb 7.6 oz) 03/20/2024 8:01 A M CDT Height 178 cm (5' 10.08) 03/14/2024 11:02 AM CD T Body Mass Index 27.27 03/14/2024 11:02 AM CDT Plan of Treatment Upcoming Encounters Date Type Department Care Team (Late Contact Info) Description 04/11/2024 2:15 PM CDT Telemedicine Department of Cardiovascular Medicine in [place], [place] [address] [place] [address] James Sanchez M.D. [address] [place] [address] Medical Devices Implanted Type Area Geophysical Drafter Device Identifier Shelf Expiration Date Model / [...] negativepelvis and right femur. Thuan Horton M.D. [facility] OLIVIA GING PROCEDURES * DX Pelvis [...] negativepelvis and right femur. Thuan Horton M.D. [facility] OLIVIA GING PROCEDURES * Thyroid Function Montara (07/29/2023 9:55 AM CDT) TSH, Sensitive 1.2 0.3 - 4.2 mIU/L 07/29/2023 11:05 AM CDT DTL Blood (Blood, Venous) 07/29/2023 9:55 AM CDT 07/29/2023 10:31 AM CDT Gildardo Lofton APRN, C.N.P. LAB BLOOD ADD-ON [facility] [address] [place] [address], [place] DTL [facility] [address] [place] [address] from Last 3 Months or Most Recently Relevant to Health Maintenance Advance Directives For more information, please contact: [phone] * Full Code (Latest Code Status on File) Date Activated Date Inactivated Comments 07/18/2019 12:23 PM 07/18/2019 3:09 PM Question Answer Comments Full Code: Discussed Care Teams Supervisor Files Relationship Specialty Start Date End Date Elsewhere, Pcp PCP - General Internal Medicine 08/04/23
--- OUTSIDE RECORDS SUMMARY | 2024-04-02 20:13 | XMS_ITS | Clinical Summary ---
Author Name Unknown Organization [facility] Address [address] [place] [address] Care Team Providers Care Livestock Ranch Hand Name Role Phone Unavailable Primary Care Provider Unavailabl e Allergies Active Allergy Reactions Criticality Noted Date Comments Latex Rash Medium 08/22/2020 Venom-Honey Bee Anaphylaxis / Throat Swelling,Hives High 07/18/2019 Medications Medication Sig Dispensed Refills Start Date End Date Status dapsone (ACZONE) 5 % topical Gel 08/06/2020 Active etonogestreL (NEXPLANON) 68 mg subdermal ImplantIndications:E ncounter for removal and reinsertion of Nexplanon 1 Each (68 mg) by implant route once. 1 Each 06/04/2021 Active Clindamycin Phosphate 1 % topical Swab 10/02/2021 Active atomoxetine (STRATTERA) 100 mg oral CapsuleIndications:A ttention deficit hyperactivity disorder (ADHD), combined type Take 100 mg by mouth once daily. 90 Capsule 2 04/01/2022 Active escitalopram oxalate (LEXAPRO) 20 mg oral TabletIndications:An xiety state, unspecified Take 1 Tablet (20 mg) by mouth once daily. 90 Tablet 04/01/2022 Active busPIRone (BUSPAR) 10 mg oral TabletIndications:An xiety state, unspecified Take 1 Tablet (10 mg) by mouth twice daily. 180 Tablet 04/01/2022 Active pantoprazole (PROTONIX) 40 mg oral Tablet, Delayed Release (E.C.)Indications:Ot her chronic gastritis without hemorrhage Take 1 Tablet (40 mg) by mouth once daily on an empty stomach. 90 Tablet 04/01/2022 Active propranoloL (INDERAL LA) 60 mg oral Capsule, Sustained Action 24HRIndications:Anxi ety state, unspecified Take 1 Capsule (60 mg) by mouth once daily. 90 Capsule 04/01/2022 Active levothyroxine (LEVOXYL,SYNTHROID) 100 mcg oral TabletIndications:Hy pothyroidism, unspecified type Take 1 Tablet (100 mcg) by mouth once daily. 90 Tablet 04/01/2022 Active fluticasone propionate (FLOVENT DISKUS) 50 mcg/actuation inhalation Disk with DeviceIndications:Mi ld persistent asthma without complication Inhale 2 Inhalation (2 Puffs) by mouth twice daily. 60 Each 04/01/2022 Active Active Problems Problem Noted Date Diagnosed Date Pain in right hand 12/14/2021 Encounter for removal and reinsertion of Nexplan on 06/04/2021 Overview: Nexplanon Lot #[id number] ; Expiration date: 05/14/2023; Insertion date: 06/04/21 Removal date: 06/04/2024 Displaced fracture of capita te (os magnum) bone, unspecified wrist, initial encounter for open fracture 12/10/2020 Mild intermittent asthma without complication Epigastric pain 03/01/2019 Overview: Added automatically from request for surgery [id number] Attention deficit hyperactivity disorder (ADHD) 06/09/2007 Anxiety state, unspecified 06/09/2007 Overview: ICD10 Regulatory Release Disturbance of conduct 06/09/2007 Overview: 02/12/22 IMO Regulator Release Replacements Hypothyroidism 06/08/2004 Overview: Problem list name updated by automated process. Provider to review Immunizations Name Administration Dates Next Due [id number] Vaccine, IM (Pentacel) 2001 DTaP Vac, <7 [...] week 01/07/2022 How often do you attend chur or mu-ism services? 1 to 4 times per year [...] medical care, and heating? Somewhat hard 01/07/2022 [facility] of Occupat ional Health - Occupational Stress [...] place to sleep or slept in a snf (including now)? No 01/07/2022 Depression (PHQ-9) Answer [...] DT Respiratory Rate 14 01/01/2022 10:15 AM STERILE PREPARATION TECHNICIAN Oxygen Saturation 100% 03/18/2022 11:40 AM CDT [...] Chlamydia Screen Age 16-24 Years 01/14/2023 01/15/20 PHQ-9 Depression Screening 03/17/2023 03/17/2022 COVID-19 Vaccine [...] 04/24/2010, 03/06/20 09 HPV Vaccines Completed 02/19/2013, 04/0 06/2013, 11/08/2012, Additional history exists Meningococcal Vaccines Completed 06/21/2019, 2011 Procedures Procedure Name Priority Date/Time Associated Diagnosis Comments PAP TEST Routine 01/14/2022 3:57 PM STERILE PREPARATION TECHNICIAN Encounter for screening for cervical cancer CHLAMYDIA TRACHOMATIS AND NEISSERIA GONORRHOEAE, GENITAL AND URINE SOURCES, NAAT Routine 01/14/2022 3:57 PM STERILE PREPARATION TECHNICIAN Vaginal discharge from Last 3 Months or Most Recently Relevant to Health Maintenance Results * PAP TEST (01/14/2022 3:57 PM STERILE PREPARATION TECHNICIAN) Specimen Adequacy Satisfactory for evaluation: Endocervical component present. 2 1:01 PM STERILE PREPARATION TECHNICIAN [facility] Interpretation Negative for intraepithelial lesion or malignancy: Reactive cellular changes associated with inflammation (includes typical repair). Negative 2 1:01 PM [facility] Reflex? Reflex if ASCUS only 2 1:01 PM STERILE PREPARATION TECHNICIAN [facility] Menstrual Status Implant 01/16/20 2 2 1:01 PM [facility] Disclaimer/Infor mational Comment The Pap test is an initial screening test that is helpful in the detection of certain benign, pre-malignant disorders of cervical and vaginal tissues. Like all medical tests, the Pap test has an inherent false-negative and false-positive rate, therefore, regular gynecologic health care with Pap test screening is highly suggested. In addition, an abnormal result may require additional confirmatory testing. 2 1:01 PM STERILE PREPARATION TECHNICIAN [facility] Other CERVIX UTERI STRUCTURE / Unknown Non-blood Collection / Unknown 01/14/2022 3:57 PM STERILE PREPARATION TECHNICIAN 01/14/2022 4:01 PM STERILE PREPARATION TECHNICIAN Sofia Chavis DO LAB CYTOLOGY ORDER COREY [facility] [address] [place] [address], [place] [phone] * CHLAMYDIA TRACHOMATIS AND NEISSERIA GONORRHOEAE, GENITAL AND URINE SOURCES, NAAT (01/14/2022 3:57 PM STERILE PREPARATION TECHNICIAN) Chlamydia trachomatis, NAAT Negative Negative 01/16/2022 2:41 PM STERILE PREPARATION TECHNICIAN [facility] Neisseria gonorrhoeae, NAAT Negative Negative 01/16/2022 2:41 PM STERILE PREPARATION TECHNICIAN [facility] Swab ENDOCERVICAL STRUCTURE / Unknown Non-blood Collection / Unknown 01/14/2022 3:57 PM STERILE PREPARATION TECHNICIAN 01/14/2022 4:00 PM STERILE PREPARATION TECHNICIAN Sofia Chavis DO LAB MOLECULAR ORDE RABLES [facility] [address] [place] [address], [place] [phone] from Last 3 Months or Most Recently Relevant to Health Maintenance [id number] Comp Employer [address] [place] [address] [id number] Comp Employer [address] [place] [address] Additional Source Comments PLEASE NOTE: Replies to this message will not be received.[facility]
--- OUTSIDE RECORDS SUMMARY | 2024-04-02 20:13 | XMS_ITS | Clinical Summary ---
Author Name Unknown Organization [facility] Address [address] [place] [address] Care Team Providers Care Director Of Rotc Name Role Phone Elsewhere, Pcp Primary Care Provider Unavailabl e Source Comments Patient records contain information from all sites at [facility]. For routine questions regarding patient records, call [phone] during business hours, M-F 8:00 AM - 5:00 PM Central Time. Record requests for emergency care only can be directed to [phone] at any time.[facility] Allergies Active Allergy Reactions Criticality Noted Date Comments Bee Venom Protein (Honey Bee) Anaphylaxis 07/18/2019 Influenza Virus Vaccine Trivalent [id number] (2) Other (see comments) 09/26/2023 Latex Rash [...] Overview: Added automatically from request for surgery [id number] Attention Deficit With Hyperactivity Disorder Overview: ADHD Pain Hand Right Resolved Problems Problem Noted Date Diagnosed Date Resolved Date Vomiting 03/01/2019 11/17/2021 Overview: Added automatically from request for surgery [id number] Encounters Date Type Department Care Team Description 03/20/2024 8:15 AM CDT Office Visit Department of Occupational Medicine in [address] [address] Audrey Reyna P.A.-C., P.A. Injury Hip Initial Right; Injury Leg Initial Right Discharge Disposition: Home or Self Care 03/14/2024 11:15 AM CDT Comprehensive Visit Department of Occupational Medicine in [address] [address] Audrey Reyna P.A.-C., P.A. Injury Hip Initial Right; Injury Leg Initial Right Discharge Disposition: Home or Self Care 03/12/2024 9:25 AM CDT - 03/12/2024 11:31 AM CDT Emergency [facility] [address] [place] [phone] Thuan Horton M.D. Injury Hip Initial Right (Primary Dx); Injury Leg Initial Right Discharge Disposition: Home or Self Care 01/23/2024 Orders Only Division of Gastroenterology in [place], [place] [address] [place] [address] Jorge Tirado M.D. Genetic Susceptibility To Disease 01/16/2024 9:30 AM [facility] Clinical Support Department of Occupational Medicine in [place], [place] [address] [place] [phone] Samantha Shabazz M.D., M.P.H. Drug Screen (Primary Dx) Discharge Disposition: Home or Self Care from Last 3 Months Immunizations Name Administration [...] Romel voss Skin cancer Paternal Grandfather Romel voss Stroke Paternal Grandmother Shreya voss Relation Name Status Comments Father Ray walker Maternal Grandfather Davy walker Mother Helen walker Paternal Grandfather Romel bipin Paternal Grandmother Shreya voss Social History Tobacco [...] often do you attend chur ch or church services? 1 to 4 times per year 2022 Do you belong to any clubs o r organizations such as jain groups, unions, fraternal or athletic groups, or [...] Answer Date Recorded PHQ-2 Score 0 11/16/2022 [facility] - [facility]ational Stress Questionnaire Answer [...] living situation today? I have a [facility] place to live 09/20/2023 Education Answer Date [...] Encounters Date Type Department Care Team (Late st Contact Info) Description 04/11/2024 2:15 PM CDT Telemedicine Department of Cardiovascular Medicine in [place], [place] [address] [place] [address] James Sanchez M.D. [address] [place] [address] Health Maintenance Due Date Last Done Comments Cervical Cancer Screening 2001 Hepatitis C Screening 2001 COVID-19 Vaccine (2022- season) 2023 10/09/2021, 03/20/2021, 02/20/2021 Depression Screening [...] complete this topic HPV Vaccines Completed 02/19/2013, 040 06/2013, 11/08/2012, Additional history exists Meningococcal Vaccine Completed 06/21/2019, 012 Hepatitis B Vaccines Completed 01/30/2024, 08/13/2002, 2001, Additional history exists Medical Devices Implanted Type Area Jewelry Inspector Device Identifier Shelf Expiration Date Model / [...] DIAGNOSTIC OLIVIA GING PROCEDURES * Thyroid Function [place] (07/29/2023 9:55 AM CDT) TSH, Sensitive 1.2 0.3 - 4.2 mIU/L 07/29/2023 11:05 AM CDT DTL Blood (Blood, Venous) 07/29/2023 9:55 AM CDT 07/29/2023 10:31 AM CDT Gildardo Lofton APRN, C.N.P. LAB BLOOD ADD-ON [facility] [address] [place] [address], [place] DTL [facility] [address] [place] [address] from Last 3 Months or Most Recently Relevant to Health Maintenance Advance Directives For more information, please contact: [phone] * Full Code (Latest Code Status on File) Date Activated Date Inactivated Comments 07/18/2019 12:23 PM 07/18/2019 3:09 PM Question Answer Comments Full Code: Discussed Care Teams Director Of Rotc Relationship Specialty Start Date End Date Elsewhere, Pcp PCP - General Internal Medicine 08/04/23
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
--- OUTSIDE RECORDS SUMMARY | 2024-04-02 20:14 | XMS_ITS | Clinical Summary ---
Author Name Unknown Organization [email or web address] Address [place], [place] [address] Care Team Providers Care Varnish Melter Helper Name Role Phone Jose Johnson MD Primary [...] - - Pulse 112 11/13/2021 1:51 PM CERTIFIED OPTICIAN Temperature 37.1 ??C (98.8 ??F) 11/13/2021 1:51 PM CS T Respiratory Rate - - Oxygen Saturation 99% 11/13/2021 1:51 PM CERTIFIED OPTICIAN Inhaled Oxygen Concentration - - Weight - [...] age to complete this topic Care Teams Varnish Melter Helper Relationship Specialty [place] [address] [phone] PCP - General 05/12/07
--- OUTSIDE RECORDS SUMMARY | 2024-04-02 20:14 | XMS_ITS | Encounter Summary ---
Author Name Unknown Organization [facility] Address [address] [place] [address] Care Team Providers Care Medical Professionals Name Role Phone Elsewhere, Pcp Primary Care Provider Unavailabl e Reason for Referral * Outpatient (Routine) - Authorized Specialty Diagnoses / Procedures Referred By Contjules t Referred To Contact Diagnoses Drug Screen Procedures OCC Drug screening Samantha Shabazz M.D., M.P.H. [address] [place] [address] [facility] Referral ID Status Reason Start Date Expiration Date V isits Requested Visits Authorized [id number] Authorized 01/16/2024 01/15/2025 1 1 OSURGICAL NURSE Reason for Visit * Reason Comments Drug Screen [facility] Encounter Details Date Type Department Care Team (Latest Contact Info) Description 01/16/2024 9:30 AM NEUROSURGICAL NURSE Clinical Support Department of Occupational Medicine in [place], [place] [address] [place] [phone] Samantha Shabazz M.D., M.P.H. [address] [place] [address] Drug Screen (Primary Dx) Discharge [...] often do you attend chur ch or baptist services? 1 to 4 times per year 2022 Do you belong to any clubs o r organizations such as presybeterian groups, unions, fraternal or athletic groups, or [...] Answer Date Recorded PHQ-2 Score 0 11/16/2022 [facility] [place] of Occupat ional Health - Occupational Stress [...] your living situation today? I have a [facility] place to live 09/20/2023 Education Answer [...] 01/16/2024 9:30 AM CST Pre-employment uds for [facility] [place]. Uneventful collection OSURGICAL NURSE documented in this encounter Plan of Treatment Upcoming Encounters Date Type Department Care Team (Late st Contact Info) Description 04/11/2024 2:15 PM CDT Telemedicine Department of Cardiovascular Medicine in [place], [place] [address] [place] [address] James Sanchez M.D. [address] [place] [address] Scheduled Orders Name Type Priority Associated Diagnoses Orde r Schedule OCC Drug screening Procedures Routine Drug Screen Ordered: 01/16/2024 documented as of this encounter Visit Diagnoses Diagnosis Drug Screen- Primary documented in this encounter Care Teams Medical Professionals Relationship Specialty Start Date End Date Elsewhere, Pcp PCP - General Internal Medicine 08/04/23 documented as of this encounter
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
--- OUTSIDE RECORDS SUMMARY | 2024-04-02 20:14 | XMS_ITS | Encounter Summary ---
Author Name Unknown Organization [facility] Address [address] [place] [address] Care Team Providers Care Front Office Director Name Role Phone Elsewhere, Pcp Primary Care Provider Unavailabl e Reason for Referral * Outpatient (Routine) - Closed Specialty Diagnoses / Procedures Referred By Steff t Referred To Contact Emergency Medicine Diagnoses Injury Hip Initial Right Injury Leg Initial Right Thuan Horton M.D. [address] [place] [address] [facility] Referral ID Status Reason Start Date Expiration Date Visits Re quested Visits Authorized [id number] Closed 03/12/2024 09/11/2025 1 1 Reason for Visit * Reason Comments Leg Problem Encounter Details Date Type Department Care Team (Late st Contact Info) Description 03/12/2024 9:25 AM CDT - 03/12/2024 11:31 AM CDT Emergency [place] [facility] [address] [place] [phone] Thuan Horton M.D. [address] [place] [phone] Injury Hip Initial Right (Primary Dx); [...] How often do you attend chur or church services? 1 to 4 times [...] Answer Date Recorded PHQ-2 Score 0 11/16/2022 [facility] of Occupat ional Health - Occupational Stress [...] your living situation today? I have a [facility] place to live 09/20/2023 Education Answer [...] mg 2 tablets up to 4 times [id number] mg/day OR Extended Release 650 mg 2 [...] albuterol 2.5 mg /3 mL nebulizer solutionIndications:A sthma Exacerbation (HCC) Inhale 3 mL (2.5 mg [...] OF PRESENT ILLNESS Workmen's Compensation Evaluation Employer: [place], [place] Date of Injury: 03/12/2024 23-year-old female [...] seen and did have some Tylenol-acetaminophen and Gitpa-Lrultx-Uvelilfms givenfor the department supply. She is rating the pain at 6/10 currently. No previous injury. History provided by: Patient and medical records REVIEW OF SYSTEMS Musculoskeletal: Positive for extremity pain. 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 03/12/242113 * Jonan Alexis R.N. - 03/12/2024 9:25 AM CDT Right hip vs pt leg while trying to restraint patient, ice to affected area Joann Alexis R.N. 03/12/[address] documented in this encounter Plan of Treatment Upcoming Encounters Date Type Department Care Team (Late st Contact Info) Description 04/11/2024 2:15 PM CDT Telemedicine Department of Cardiovascular Medicine in [place], [place] [address] [place] [address] James Sanchez M.D. [address] [place] [address] Scheduled Referrals Name Type Priority Associated Diagnoses [...] Right documented in this encounter Care Teams Front Office Director Relationship Specialty Start Date End Date Elsewhere, Pcp PCP - General Internal Medicine 08/04/23 documented as of this encounter
--- OUTSIDE RECORDS SUMMARY | 2024-04-02 20:14 | XMS_ITS | Encounter Summary ---
Author Name Unknown Organization [facility] Address [address] [place] [address] Care Team Providers Care Casey Saw Operator Name Role Phone Elsewhere, Pcp Primary Care Provider Unavailabl e Encounter Details Date Type Department Care Team (Late st Contact Info) Description 01/23/2024 Orders Only Division of Gastroenterology in [place], [place] [address] [place] [phone] Jorge Tirado M.D. [address] [place] [phone] Genetic Susceptibility To Disease Social History Tobacco [...] any clubs o r organizations such as moravian groups, unions, fraternal or athletic groups, or [...] Answer Date Recorded PHQ-2 Score 0 11/16/2022 [facility] [place] [facility] - Occupational Stress [...] your living situation today? I have a [facility] place to live 09/20/2023 Education Answer [...] as of this encounter Plan of Treatment Upcoming Encounters Date Type Department Care Team (Late st Contact Info) Description 04/11/2024 2:15 PM CDT Telemedicine Department of Cardiovascular Medicine in [place], [place] [address] [place] [address] James Sanchez M.D. [address] [place] [address] documented as of this encounter Procedures Procedure Name Priority Date/Time Associated Diagnosis Comments EXT TAPESTRY Routine 09/30/2022 12:00 AM [employer]IES Genetic Susceptibility To Disease documented in this encounter Results * EXT Tapestry (09/30/2022 12:00 AM SUPERVISOR PROPERTIES) Gene Studied BRCA1,BRCA2,MLH1,MSH 2, MSH6,PMS2,EPCAM,APOB,L DLR,LDLRAP1,PCSK9 11/11/2022 12:00 AM [employer] ARNOLDO Genetic Disease Assessed Evaluation of 11 genes associated with Hereditary Breast and Ovarian Cancer, Marie Syndrome and Familial Hypercholesterolemia. 11/11/2022 12:00 AM [facility] Genetic Analysis Overall Interpretation Negative results through Tapestry do not replace diagnostic testing for patients with a personal or family history of cancer/hypercholestero lemia due to limitations with methodology. Consider a referral to a genetic counselor for diagnostic testing if warranted. 11/11/2022 12:00 AM [facility] Genetic Analysis Report See Tapestry PDF Report [...] enriched using a custom set of reagents (Chief Trunk+ chemistry). Targeted regions were sequenced using an Illumina DNA sequencing system. Your sequence was matched to a modified version of the [place] standard reference genome (GRCh38). Variant calling was completed using a customized version of [employer]'s CyberSense software, requiring 20x coverage for validated variant calls. Copy Number Variants (CNVs) were called using a proprietary bioinformatics pipeline that compared the coverage profile of your sample with the coverage profiles of other reference set samples. [facility] [employer] biometrics then analyzed the generated variant data for the exons and 10 bp of flanking intronic sequence (and select tagged intronic variants) of the 11 genes included in [employer] from the Replise Database. Your sample was reviewed for single [...] assessments and medical management. 11/11/2022 12:00 AM [employer] ARNOLDO Human Reference Sequence Assembly GRCh38 11/11/2022 12:00 AM [employer]IES ARNOLDO Saliva (Mouth) 09/30/2022 Jorge Tirado M.D. LAB GENETI C TESTING HELIX [employer] [address], [address] [place] [address], [facility] ARNLODO [employer] [address], [address] [place] [address] documented in this encounter Visit Diagnoses Diagnosis Genetic Susceptibility To Disease documented in this encounter Care Teams Casey Saw Operator Relationship Specialty Start Date End Date Elsewhere, Pcp PCP - General Internal Medicine 08/04/23 documented as of this encounter
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
--- NOTE | 2024-05-01 08:50 | W.PM.SLEEP ---
Sleep Study Details Details Interpreting Provider: Filiberto Date of Sleep Study: 04/02/24 Sleep Study Details: STUDY TYPE:? Home unattended ? BMI:? 25.1 ORDERING PROVIDER:Mahi De Los Santos INDICATION:? Concerned about sleep apnea ? SLEEP SUMMARY:? 307 minutes total sleep time RESPIRATORY SUMMARY:? Mean oxygen awake 96 asleep 96 minimum 91 AHI 7.6, supine AHI 11.5, nonsupine 6.4. No supine REM stage sleep was seen PERIODIC LIMB MOVEMENTS OF SLEEP:? None noted CARDIAC:? Awake 65, asleep 62, no arrhythmias noted IMPRESSION:? Mild obstructive sleep apnea with supine position dependency RECOMMENDATION: Treatment options include CPAP AutoSet, dental appliance and/or airway expansion surgery.
== END 2024-04-02 20:09 | disposition home or self-care (01) ==
LOC: SLEEP 20:11
PROVIDERS: PCP Nurse Practitioner Family; Visit Provider Otolaryngology
DX: G47.33 Obstructive sleep apnea (adult) (pediatric) (principal)
CPT/HCPCS: 95810

== ENCOUNTER 2024-04-30 07:59 | Outpatient (CLI) | payer BC, OTHER, SELFPAY ==
--- OUTSIDE RECORDS SUMMARY | 2024-04-30 08:02 | XMS_ITS | Referral Summary ---
Author Organization [facility] Address [address] [place] [address] Care Team Providers Care Recreation Leader Name Role Phone Elsewhere, Pcp Primary Care Provider Unavailabl e Source Comments Patient records contain information from all sites at [facility]. For routine questions regarding patient records, call [phone] during business hours, M-F 8:00 AM - 5:00 PM Central Time. Record requests for emergency care only can be directed to [phone] at any time.[facility] Encounters Date Type Department Care Team Description 04/11/2024 2:15 PM CDT Telemedicine Department of Cardiovascular Medicine in [place], [place] [address] [place] [phone] James Sanchez M.D. Tachycardia Sinus (Primary Dx); Abnormal Weight Gain 03/20/2024 8:15 AM CDT Office Visit Department of Occupational Medicine in [address] [phone] Audrey Reyna P.A.-C., P.A. Injury Hip Initial Right; Injury Leg Initial Right Discharge Disposition: Home or Self Care 03/14/2024 11:15 AM CDT Comprehensive Visit Department of Occupational Medicine in [address] [phone] Audrey Reyna P.A.-C., P.A. Injury Hip Initial Right; Injury Leg Initial Right Discharge Disposition: Home or Self Care 03/12/2024 9:25 AM CDT - 03/12/2024 11:31 AM CDT Emergency [facility] [address] [place] [phone] Thuan Horton M.D. Injury Hip Initial Right (Primary Dx); Injury Leg Initial Right Discharge Disposition: Home or Self Care from Last 3 Months Allergies Active Allergy Reactions Criticality Noted Date Comments Bee Venom Protein (Honey Bee) Anaphylaxis 07/18/2019 Influenza Virus Vaccine Trivalent 5131-6222 (2) Other (see comments) 09/26/2023 Latex Rash [...] 2 (two) times a day. 10/02/2021 Active albuterol 2.5 mg /3 mL nebulizer [...] Overview: Added automatically from request for surgery [id number] Attention Deficit With Hyperactivity Disorder Overview: ADHD Pain Hand Right Resolved Problems Problem Noted Date Diagnosed Date Resolved Date Vomiting 03/01/2019 11/17/2021 Overview: Added automatically from request for surgery [id number] Immunizations Name Administration Dates Next Due 4vHPV [...] How often do you attend [facility] or sikh services? 1 to 4 times per year 2022 Do you belong to any clubs o r organizations such as spiritism groups, unions, fraternal or athletic groups, or [...] Answer Date Recorded PHQ-2 Score 0 11/16/2022 [facility] - Occupational Stress Questionnaire Answer Date [...] your living situation today? I have a [facility] place to live 09/20/2023 Education Answer [...] Care Team (Late st Contact Info) Description 07/18/2024 10:20 AM CDT Appointment Department of Laboratory Medicine and Pathology, [facility], in [place], [place] [address] [place] [address] James Sanchez M.D. [address] [place] [address] 07/18/2024 11:15 AM CDT Office Visit Department of Cardiovascular Medicine in [place], [place] [address] [place] [address] James Sanchez M.D. [address] [place] [address] Medical Devices Implanted Type Area Medical Record Transcriber Device Identifier Shelf Expiration Date Model / [...] negativepelvis and right femur. Thuan Horton M.D. [facility] OLIVIA GING PROCEDURES * DX Pelvis [...] negativepelvis and right femur. Thuan Horton M.D. [facility] OLIVIA GING PROCEDURES * Thyroid Function Pinch (07/29/2023 9:55 AM CDT) TSH, Sensitive 1.2 0.3 - 4.2 mIU/L 07/29/2023 11:05 AM CDT DTL Blood (Blood, Venous) 07/29/2023 9:55 AM CDT 07/29/2023 10:31 AM CDT Glidardo Lofton APRN, C.N.P. LAB BLOOD ADD-ON [facility] [address] [place] [address], [place] DTL [facility] [address] [place] [address] from Last 3 Months or Most Recently Relevant to Health Maintenance Advance Directives For more information, please contact: [phone] * Full Code (Latest Code Status on File) Date Activated Date Inactivated Comments 07/18/2019 12:23 PM 07/18/2019 3:09 PM Question Answer Comments Full Code: Discussed Care Teams Recreation Leader Relationship Specialty Start Date End Date Elsewhere, Pcp PCP - General Internal Medicine 08/04/23
--- OUTSIDE RECORDS SUMMARY | 2024-04-30 08:02 | XMS_ITS ---
Author Organization [facility] Address [address] [place] [address] Care Team Providers Care News Camera Person Name Role Phone Unavailable Unavailable Unavailable Surgery Details Not on file Complications Check Surgery Details section. Procedure Estimated Blood Loss Check Surgery Details section. Procedure Findings Check Surgery Details section. Procedure Specimens Taken Check Surgery Details section.
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
--- OUTSIDE RECORDS SUMMARY | 2024-04-30 08:02 | XMS_ITS | Referral Summary ---
Author Organization [employer] Address [address] [place] [address] Care Team Providers Care Mattress Weaver Name Role Phone Unavailable Primary Care [...] of Nexplan on 06/04/2021 Overview: Nexplanon Lot #[id number] ; Expiration date: 05/14/2023; Insertion date: 06/04/21 Removal date: 06/04/2024 Displaced fracture of capita te (os magnum) bone, unspecified wrist, initial encounter for open fracture 12/10/2020 Mild intermittent asthma without complication Epigastric pain 03/01/2019 Overview: Added automatically from request for surgery [id number] Attention deficit hyperactivity disorder (ADHD) 06/09/2007 Anxiety state, unspecified 06/09/2007 Overview: ICD10 Regulatory Release Disturbance of conduct 06/09/2007 Overview: 02/12/22 IMO Regulator Release Replacements Hypothyroidism 06/08/2004 Overview: Problem list name updated by automated process. Provider to review Immunizations Name Administration Dates Next Due [id number] Vaccine, IM (Pentacel) 2001 DTaP Vac, <7 [...] medical care, and heating? Somewhat hard 01/07/2022 [facility]at [facility] - Occupational Stress [...] place to sleep or slept in a longterm (including now)? No 01/07/2022 Depression (PHQ-9) Answer [...] DT Respiratory Rate 14 01/01/2022 10:15 AM PROBATION OFFICER Oxygen Saturation 100% 03/18/2022 11:40 AM CDT [...] Comments PAP TEST Routine 01/14/2022 3:57 PM PROBATION OFFICER Encounter for screening for cervical cancer CHLAMYDIA TRACHOMATIS AND NEISSERIA GONORRHOEAE, GENITAL AND URINE SOURCES, NAAT Routine 01/14/2022 3:57 PM PROBATION OFFICER Vaginal discharge from Last 3 Months or Most Recently Relevant to Health Maintenance Results * PAP TEST (01/14/2022 3:57 PM PROBATION OFFICER) Specimen Adequacy Satisfactory for evaluation: Endocervical component present. 2 1:01 PM PROBATION OFFICER [facility] Interpretation Negative for intraepithelial lesion or malignancy: Reactive cellular changes associated with inflammation (includes typical repair). Negative 2 1:01 PM PROBATION OFFICER [facility] Reflex? Reflex if ASCUS only 2 1:01 PM PROBATION OFFICER [facility] Menstrual Status Implant 01/16/20 2 2 1:01 PM PROBATION OFFICER [facility] Disclaimer/Infor mational Comment The Pap test [...] require additional confirmatory testing. 2 1:01 PM PROBATION OFFICER [facility] Other CERVIX UTERI STRUCTURE / Unknown Non-blood Collection / Unknown 01/14/2022 3:57 PM PROBATION OFFICER 01/14/2022 4:01 PM PROBATION OFFICER Sofia LEMON CYTOLOGY ORDER COREY [facility] [address] [place] [address], * CHLAMYDIA TRACHOMATIS AND NEISSERIA GONORRHOEAE, GENITAL AND URINE SOURCES, NAAT (01/14/2022 3:57 PM PROBATION OFFICER) Chlamydia trachomatis, NAAT Negative Negative 01/16/2022 2:41 PM PROBATION OFFICER [facility] Neisseria gonorrhoeae, NAAT Negative Negative 01/16/2022 2:41 PM PROBATION OFFICER [facility] Swab ENDOCERVICAL STRUCTURE / Unknown Non-blood Collection / Unknown 01/14/2022 3:57 PM PROBATION OFFICER 01/14/2022 4:00 PM PROBATION OFFICER Sofia Chavis DO LAB MOLECULAR ORDBobby YOUNG [facility] [address] [address], from Last 3 Months or Most Recently Relevant to Health Maintenance Claudia Leach Personal/Family Self [address] [place] [place] [address] Claudia Leach [employer] Liability Self [address] [place] [address] [id number] Workers Comp Employer [address] [place] [address] [id number] Workers [employer]er [address] [place] [address] Additional Source Comments PLEASE NOTE: Replies to this message will not be received.[facility]
--- OUTSIDE RECORDS SUMMARY | 2024-04-30 08:02 | XMS_ITS | Encounter Summary ---
Author Organization [employer] Address [address] [place] [address] Care Team Providers Care Wellness Manager Name Role Phone Sofia Chavis DO Primary Care Provider [phone] Encounter Details Date Type Department Care Team (Late st Contact Info) Description 08/30/2021 [facility] Family Medicine [address] [place] [address] Casey Grayson MD [address] [place] [address] Social History Tobacco Use Types Packs/Day [...] often do you attend chur ch or samaritan services? Never 06/01/2021 Do you belong to [...] medical care, and heating? Somewhat hard 06/01/2021 [facility] Occupat ional [facility] - Occupational Stress Questionnaire Answer Date Recorded [...] or slept in a retirement (including now)? Yes 06/01/2021 Depression (PHQ-9) Answer [...] Grayson MD jml P P Doc #: [id number] documented in this encounter Plan of Treatment Not on file documented as of this encounter Visit Diagnoses Not on filedocumented in this encounter Additional Health Concerns Infection Onset Date Last Indicated Resolved Time COVID-19 Rule Out 09/28/2021 09/28/2021 09/29/2021 12:38 PM STAFFING COORDINATOR COVID-19 Rule Out 12/14/2021 12/14/2021 12/15/2021 6:40 PM STAFFING COORDINATOR COVID-19 Rule Out 01/01/2022 01/01/2022 01/01/2022 10:04 AM STAFFING COORDINATOR Respiratory Rule-Out 01/01/2022 01/01/2022 022 10:03 AM STAFFING COORDINATOR documented as of this encounter Care Teams Wellness Manager Relationship Specialty Start Date End Date Sofia Chavis DO [address] [place] [phone] PCP - General Family Medicine 08/15/20 03/31/22 documented as of this encounter Additional Source Comments PLEASE NOTE: Replies to this message will not be received.[facility]
--- OUTSIDE RECORDS SUMMARY | 2024-04-30 08:02 | XMS_ITS | Clinical Summary ---
Author Organization [facility] Address [address] [place] [address] Care Team Providers Care Investor Relations Analyst Name Role Phone Elsewhere, Pcp Primary Care Provider Unavailabl e Source Comments Patient records contain information from all sites at [facility]. For routine questions regarding patient records, call [phone] during business hours, M-F 8:00 AM - 5:00 PM Central Time. Record requests for emergency care only can be directed to [phone] at any time.[facility] Allergies Active Allergy Reactions Criticality Noted Date Comments Bee Venom Protein (Honey Bee) Anaphylaxis 07/18/2019 Influenza Virus Vaccine Trivalent 5986-1635 (2) Other (see comments) 09/26/2023 Latex Rash [...] Overview: Added automatically from request for surgery [id number] Attention Deficit With Hyperactivity Disorder Overview: ADHD Pain Hand Right Resolved Problems Problem Noted Date Diagnosed Date Resolved Date Vomiting 03/01/2019 11/17/2021 Overview: Added automatically from request for surgery [id number] Encounters Date Type Department Care Team Description 04/11/2024 2:15 PM CDT Telemedicine Department of Cardiovascular Medicine in [address] [phone] James Sanchez M.D. Tachycardia Sinus (Primary Dx); Abnormal Weight Gain 03/20/2024 8:15 AM CDT Office Visit Department of Occupational Medicine in [address] [phone] Audrey Reyna P.A.-C., P.A. Injury Hip Initial Right; Injury Leg Initial Right Discharge Disposition: Home or Self Care 03/14/2024 11:15 AM CDT Comprehensive Visit Department of Occupational Medicine in [address] [phone] Audrey Reyna P.A.-C., P.A. Injury Hip Initial Right; Injury Leg Initial Right Discharge Disposition: Home or Self Care 03/12/2024 9:25 AM CDT - 03/12/2024 11:31 AM CDT Emergency [facility] [address] [place] [phone] Thuan Horton M.D. Injury Hip Initial Right [...] Father Manoj finney Skin cancer Father Manoj fineny Sleep apnea Father Manoj finney Other cancer Maternal Grandfather Davy finney Skin cancer Maternal Grandfather Davy finney Alopecia Mother Helen finney Sleep apnea Mother Helen finney Melanoma Paternal Grandfather Romel voss Prostate cancer Paternal Grandfather Romel kl Skin cancer Paternal Grandfather Romel klair Stroke Paternal Grandmother Shreya de jesus Relation Name Status Comments Father Manoj finney [...] often do you attend chur ch or yarsanism services? 1 to 4 times per year 2022 Do you belong to any clubs o r organizations such as mosque groups, unions, fraternal or athletic groups, or [...] Answer Date Recorded PHQ-2 Score 0 11/16/2022 [facility] of Occupat ional Health - [...] situation today? I have a [facility] place to live 09/20/2023 Education [...] Appointment Department of Laboratory Medicine and Pathology, [facility], in [place], [place] [address] [place] [address] James Sanchez M.D. [address] [place] [address] 07/18/2024 11:15 AM CDT Office Visit Department of Cardiovascular Medicine in [place], [place] [address] [place] [address] James Sanchez M.D. [address] [place] [address] Health Maintenance Due Date Last Done Comments Hepatitis C Screening 2001 COVID-19 Vaccine ( season) 2023 10/09/2021, 03/20/2021, 02/20/2021 Depression Screening (Annual PHQ-2) 11/14/2023 Thyroid Stimulating Hormone (TSH) test for thyroid function 07/29/2024 07/29/2023, 04/10/2023, 11/15/2021, Additional history exists Cervical Cancer Screening 01/14/2025 01/14/2022 DTaP,Tdap,and Td Vaccines (10 - Td or [...] history exists Medical Devices Implanted Type Area Riprap Man Device Identifier Shelf Expiration Date Model / [...] DIAGNOSTIC OLIVIA GING PROCEDURES * Thyroid Function [place] (07/29/2023 9:55 AM CDT) TSH, Sensitive 1.2 0.3 - 4.2 mIU/L 07/29/2023 11:05 AM CDT DTL Blood (Blood, Venous) 07/29/2023 9:55 AM CDT 07/29/2023 10:31 AM CDT Gildardo Lofton APRN, C.N.P. LAB BLOOD ADD-ON [facility] [address] [place] [address], [place] DTL [facility] [address] [place] [address] from Last 3 Months or Most Recently Relevant to Health Maintenance Advance Directives For more information, please contact: [phone] * Full Code (Latest Code Status on File) Date Activated Date Inactivated Comments 07/18/2019 12:23 PM 07/18/2019 3:09 PM Question Answer Comments Full Code: Discussed Care Teams Investor Relations Analyst Relationship Specialty Start Date End Date Elsewhere, Pcp PCP - General Internal Medicine 08/04/23
--- OUTSIDE RECORDS SUMMARY | 2024-04-30 08:02 | XMS_ITS | Clinical Summary ---
Author Organization [employer] Address [address] [place] [address] Care Team Providers Care Adjunct Faculty Name Role Phone Unavailable Primary Care Provider [...] of Nexplan on 06/04/2021 Overview: Nexplanon Lot #[id number] ; Expiration date: 05/14/2023; Insertion date: 06/04/21 Removal date: 06/04/2024 Displaced fracture of capita te (os magnum) bone, unspecified wrist, initial encounter for open fracture 12/10/2020 Mild intermittent asthma without complication Epigastric pain 03/01/2019 Overview: Added automatically from request for surgery [id number] Attention deficit hyperactivity disorder (ADHD) 06/09/2007 Anxiety state, unspecified 06/09/2007 Overview: ICD10 Regulatory Release Disturbance of conduct 06/09/2007 Overview: 02/12/22 IMO Regulator Release Replacements Hypothyroidism 06/08/2004 Overview: Problem list name updated by automated process. Provider to review Immunizations Name Administration Dates Next Due [id number] Vaccine, IM (Pentacel) 2001 DTaP Vac, <7 [...] How often do you attend chur or rastafari services? 1 to 4 times per year [...] medical care, and heating? Somewhat hard 01/07/2022 [facility] of Occupat ional Health - Occupational Stress [...] DT Respiratory Rate 14 01/01/2022 10:15 AM MANAGER OF ENVIRONMENTAL SERVICES Oxygen Saturation 100% 03/18/2022 11:40 AM CDT [...] - 3-dose series) 10/08/2002 08/13/2002, 2001, 2001 PHQ-9 Depression Screening 2013 HIV Screen 2016 Chlamydia Screen Age 16-24 Years 01/14/2023 01/14/2022 COVID-19 Vaccine ( season) 2023 10/09/2021, 03/20/2021, 02/20/2021 Influenza Vaccine (Season Ended) 2024 08/06/2021, 08/26/2020, 08/26/2020, Additional history exists Cervical Cancer Screening 01/14/2025 01/14/2022 DTaP/Tdap/Td Vaccines (9 - Td or Tdap) 07/13/2032 07/13/2022, 08/07/2012, 08/07/2012, Additional history exists Varicella Zoster Sequential (1 of 2) 2051 03/06/2009, 08/13/2002 Pneumococcal Vaccine (0-64 Years) Aged Out 04/30/2002, 02/21/2002, 2001, Additional history exists No longer eligible based on patient's age to complete this topic HIB Vaccines Completed 08/13/2002, 12/15, 2001, Additional history exists Hepatitis A Vaccines Completed 04/24/2010, 03/06/20 09 HPV Vaccines Completed 02/19/2013, 04/06/2013, 11/08/2012, Additional history exists Meningococcal Vaccines Completed 06/21/2019, 2011 Procedures Procedure Name Priority Date/Time Associated Diagnosis Comments PAP TEST Routine 01/14/2022 3:57 PM MANAGER OF ENVIRONMENTAL SERVICES Encounter for screening for cervical cancer CHLAMYDIA TRACHOMATIS AND NEISSERIA GONORRHOEAE, GENITAL AND URINE SOURCES, NAAT Routine 01/14/2022 3:57 PM MANAGER OF ENVIRONMENTAL SERVICES Vaginal discharge from Last 3 Months or Most Recently Relevant to Health Maintenance Results * PAP TEST (01/14/2022 3:57 PM MANAGER OF ENVIRONMENTAL SERVICES) Specimen Adequacy Satisfactory for evaluation: Endocervical component present. 2 1:01 PM MANAGER OF ENVIRONMENTAL SERVICES [facility] Interpretation Negative for intraepithelial lesion or malignancy: Reactive cellular changes associated with inflammation (includes typical repair). Negative 2 1:01 PM MANAGER OF ENVIRONMENTAL SERVICES [facility] Reflex? Reflex if ASCUS only 2 1:01 PM MANAGER OF ENVIRONMENTAL SERVICES [facility] Menstrual Status Implant 01/16/20 2 2 1:01 PM MANAGER OF ENVIRONMENTAL SERVICES [facility] Disclaimer/Infor mational Comment The Pap test [...] require additional confirmatory testing. 2 1:01 PM MANAGER OF ENVIRONMENTAL SERVICES [facility] Other CERVIX UTERI STRUCTURE / Unknown Non-blood Collection / Unknown 01/14/2022 3:57 PM MANAGER OF ENVIRONMENTAL SERVICES 01/14/2022 4:01 PM MANAGER OF ENVIRONMENTAL SERVICES Sofia Chavis DO LAB CYTOLOGY ORDER COREY [facility] [address] [place] [address], * CHLAMYDIA TRACHOMATIS AND NEISSERIA GONORRHOEAE, GENITAL AND URINE SOURCES, NAAT (01/14/2022 3:57 PM MANAGER OF ENVIRONMENTAL SERVICES) Chlamydia trachomatis, NAAT Negative Negative 01/16/2022 2:41 PM MANAGER OF ENVIRONMENTAL SERVICES [facility] Neisseria gonorrhoeae, NAAT Negative Negative 01/16/2022 2:41 PM MANAGER OF ENVIRONMENTAL SERVICES [facility] Swab ENDOCERVICAL STRUCTURE / Unknown Non-blood Collection / Unknown 01/14/2022 3:57 PM MANAGER OF ENVIRONMENTAL SERVICES 01/14/2022 4:00 PM MANAGER OF ENVIRONMENTAL SERVICES Sofia Chavis DO LAB MOLECULAR GRACE YOUNG Performing Organization Address [facility]/State/ZIP Co de Phone Number [facility] [address] [place] [address], from Last 3 Months or Most Recently Relevant to Health Maintenance [id number] Workers Comp Employer [address] [place] [address] [id number] [employer] Employer [address] [place] [address] Additional Source Comments PLEASE NOTE: Replies to this message will not be received.[facility]
--- OUTSIDE RECORDS SUMMARY | 2024-04-30 08:03 | XMS_ITS | Encounter Summary ---
Author Organization [facility] Address [address] [place] [address] Care Team Providers Care Plate Gauger Name Role Phone Elsewhere, Pcp Primary Care Provider Unavailabl e Reason for Referral * Outpatient (Routine) - Pending Review Specialty Diagnoses / Procedures Referred By Contac t Referred To Contact Preventive Medicine Diagnoses Injury Hip Initial Right Injury Leg Initial Right Audrey Reyna P.A.-C., P.A. [address] [phone] [facility] Region Referral ID Status Reason Start Date Expiration Date V isits Requested Visits Authorized [id number] Pending Review 03/20/2024 09/19/2025 1 1 Reason for Visit * Reason Comments Hip Injury [facility]- doi 03/12/24 * Outpatient (Routine) - Closed Specialty Diagnoses / Procedures Referred By Contac t Referred To Contact Preventive Medicine Diagnoses Injury Hip Initial Right Injury Leg Initial Right Audrey Reyna P.A.-C., P.A. [address] [place] [phone] [facility] Region Referral ID Status Reason Start Date Expiration Date Visits Re quested Visits Authorized [id number] Closed 03/14/2024 09/13/2025 1 1 Encounter Details Date Type Department Care Team (Latest Contact Info) Description 03/20/2024 8:15 AM CDT Office Visit Department of Occupational Medicine in [address] [phone] Audrey Reyna P.A.-C., P.A. [address] [phone] Injury Hip Initial Right; Injury Leg Initial [...] week 2022 How often do you attend [facility] or yarsanism services? 1 to 4 times per year 2022 Do you belong to any clubs o r organizations such as yarsanism groups, unions, fraternal or athletic groups, or [...] Answer Date Recorded PHQ-2 Score 0 11/16/2022 [facility] Occupat ional Health - Occupational [...] your living situation today? I have a [facility] place to live 09/20/2023 Education Answer Date [...] in this encounter Progress Notes * Audrey Reyna P.A.-C., P.A. 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 Orders Placed This Encounter Procedures Preventive Medicine office visit (clinic) MEDICATIONS PRESCRIBED TODAY: No orders of the defined types were placed in this encounter. Total time spent in encounter: 21 minutes documented in this encounter Plan of Treatment Upcoming Encounters Date Type Department Care Team (Late st [facility] Info) Description 07/18/2024 10:20 AM CDT Appointment Department of Laboratory Medicine and Pathology, [facility] in [place], [place] [address] [place] [phone] James Sanchez M.D. [address] [place] [phone] 07/18/2024 11:15 AM CDT Office Visit Department of Cardiovascular Medicine in [place], [place] [address] [place] [address] James Sanchez M.D. [address] [place] [phone] Scheduled Referrals Name Type Priority Associated Diagnoses Order Schedule Preventive Medicine office visit (clinic) Outpatient Referral Routine Injury Hip Initial Right Injury Leg Initial Right Expected: 04/06/2024, Expires: 06/20/2025 documented as of this encounter Visit Diagnoses Diagnosis Injury Hip Initial Right Injury Leg Initial Right documented in this encounter Care Teams Plate Gauger Relationship Specialty Start Date End Date Elsewhere, Pcp PCP - General Internal Medicine 08/04/23 documented as of this encounter
--- OUTSIDE RECORDS SUMMARY | 2024-04-30 08:03 | XMS_ITS | Encounter Summary ---
Author Organization [facility] Address [address] [place] [address] Care Team Providers Care Food And Nutrition Services Supervisor Name Role Phone Elsewhere, Pcp Primary Care Provider Unavailabl e Reason for Referral * Outpatient (Routine) - Closed Specialty Diagnoses / Procedures Referred By Steff wallace Referred To Contact Preventive Medicine Diagnoses Injury Hip Initial Right Injury Leg Initial Right Audrey Reyna P.A.-C., P.A. [address], [place] [address] [facility] Region Referral ID Status Reason Start Date Expiration Date Visits Re quested Visits Authorized [id number] Closed 03/14/2024 09/13/2025 1 1 Reason for Visit * Reason Comments Work Related Injury [facility] R[facility], DOI 03/12/24 , right hip * Outpatient (Routine) - Closed Specialty Diagnoses / Procedures Referred By Contjules wallace Referred To Contact Emergency Medicine Diagnoses Injury Hip Initial Right Injury Leg Initial Right Thuan Horton M.D. [address] [place] [phone] [facility] Region Referral ID Status Reason Start Date Expiration Date Visits Re quested Visits Authorized [id number] Closed 03/12/2024 09/11/2025 1 1 Encounter Details Date Type Department Care Team (Latest Contact Info) Description 03/14/2024 11:15 AM CDT Comprehensive Visit Department of Occupational Medicine in [address] [phone] Audrey Reyna P.A.-C., P.A. [address] [phone] Injury Hip Initial Right; Injury Leg Initial [...] week 2022 How often do you attend [facility] or congregational services? 1 to 4 times per year 2022 Do you belong to any clubs o r organizations such as worship groups, unions, fraternal or athletic groups, or [...] Answer Date Recorded PHQ-2 Score 0 11/16/2022 [facility] of Occupat ional Health - Occupational [...] your living situation today? I have a [facility] place to live 09/20/2023 Education Answer [...] this encounter Consult Notes * Audrey Reyna P.A.-C., P.A. 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 She has worked here for 3 months. [...] (Honey Bee) Anaphylaxis Influenza Virus Vaccine Trivalent 6810-7004 (2) Other (see comments) OBJECTIVE BP 122/77 [...] Medicine and Pathology, [facility], in [place], [place] [address] [place] [address] James Sanchez M.D. [address] [place] [address] 07/18/2024 11:15 AM CDT Office Visit Department of Cardiovascular Medicine in [place], [place] [address] [place] [address] James Sanchez M.D. [address] [place] [address] Scheduled Referrals Name Type Priority Associated Diagnoses Order Schedule Preventive Medicine office visit (clinic) Outpatient Referral Routine Injury Hip Initial Right Injury Leg Initial Right Expected: 03/28/2024, Expires: 06/14/2025 documented as of this encounter Visit Diagnoses Diagnosis Injury Hip Initial Right Injury Leg Initial Right documented in this encounter Care Teams Food And Nutrition Services Supervisor Relationship Specialty Start Date End Date Elsewhere, Pcp PCP - General Internal Medicine 08/04/23 documented as of this encounter
--- OUTSIDE RECORDS SUMMARY | 2024-04-30 08:03 | XMS_ITS | Encounter Summary ---
Author Organization [facility] Address [address] [place] [address] Care Team Providers Care Salesforce Administrator Name Role Phone Elsewhere, Pcp Primary Care Provider Unavailabl e Encounter Details Date Type Department Care Team (Late st Contact Info) Description 01/23/2024 Orders Only Division of Gastroenterology in [place], [place] [address] [place] [phone] Jorge Tirado M.D. [address] [place] [phone] Genetic Susceptibility To Disease Social History Tobacco [...] you attend chur ch or temple services? 1 to 4 times per year 2022 Do you belong to any clubs o r organizations such as mu-ism groups, unions, fraternal or athletic groups, or [...] Answer Date Recorded PHQ-2 Score 0 11/16/2022 [facility] of Occupat ional Health - Occupational Stress [...] Appointment Department of Laboratory Medicine and Pathology, [facility] in [place], [place] [address] [place] [address] James Sanchez M.D. [address] [place] [phone] 07/18/2024 11:15 AM CDT Office Visit Department of Cardiovascular Medicine in [place], [place] [address] [place] [address] James Sanchez M.D. [address] [place] [phone] documented as of this encounter Procedures Procedure Name Priority Date/Time Associated Diagnosis Comments EXT TAPESTRY Routine 09/30/2022 12:00 AM BIZTALK ADMINISTRATOR Genetic Susceptibility To Disease documented in this encounter Results * EXT Tapestry (09/30/2022 12:00 AM BIZTALK ADMINISTRATOR) Gene Studied BRCA1,BRCA2,MLH1,MSH 2, MSH6,PMS2,EPCAM,APOB,L DLR,LDLRAP1,PCSK9 11/11/2022 12:00 AM BIZTALK ADMINISTRATOR ARNOLDO Genetic Disease Assessed Evaluation of 11 genes associated with Hereditary Breast and Ovarian Cancer, Marie Syndrome and Familial Hypercholesterolemia. 11/11/2022 12:00 AM BIZTALK ADMINISTRATOR ARNOLDO Genetic Analysis Overall Interpretation Negative results through Tapestry do not replace diagnostic testing for patients with a personal or family history of cancer/hypercholestero lemia due to limitations with methodology. Consider a referral to a genetic counselor for diagnostic testing if warranted. 11/11/2022 12:00 AM [facility] ARNOLDO Genetic Analysis Report See Tapestry PDF [...] enriched using a custom set of reagents (Whirlpool+ chemistry). Targeted regions were sequenced using an Illumina DNA sequencing system. Your sequence was matched to a modified version of the industry standard reference genome (GRCh38). Variant calling was completed using a customized version of [employer]'s 8fit - Fitness for the rest of us software, requiring 20x coverage for validated variant calls. Copy Number Variants (CNVs) were called using a proprietary bioinformatics pipeline that compared the coverage profile of your sample with the coverage profiles of other reference set samples. [facility] then analyzed the generated variant data for the exons and 10 bp of flanking intronic sequence (and select tagged intronic variants) of the 11 genes included in Figma from the REQQI Database. Your sample was reviewed for single [...] assessments and medical management. 11/11/2022 12:00 AM BIZTALK ADMINISTRATOR ARNOLDO Human Reference Sequence Assembly [id number] 11/11/2022 12:00 AM BIZTALK ADMINISTRATOR ARNOLDO Saliva (Mouth) 09/30/2022 Jorge Tirado M.D. LAB GENETI C TESTING [facility] [address] [facility], [address] [place] [address], [facility] ARNOLDO HELIX [address] [facility], [address]. [place] [address] documented in this encounter Visit Diagnoses Diagnosis Genetic Susceptibility To Disease documented in this encounter Care Teams Salesforce Administrator Relationship Specialty Start Date End Date Elsewhere, Pcp PCP - General Internal Medicine 08/04/23 documented as of this encounter
--- OUTSIDE RECORDS SUMMARY | 2024-04-30 08:03 | XMS_ITS | Encounter Summary ---
Author Organization [facility] Address [address] [place] [address] Care Team Providers Care Bush And Vine Farmer Fruit Crops Name Role Phone Elsewhere, Pcp Primary Care Provider Unavailabl e Reason for Referral * Outpatient (Routine) - Closed Specialty Diagnoses / Procedures Referred By Steff t Referred To Contact Emergency Medicine Diagnoses Injury Hip Initial Right Injury Leg Initial Right Thuan Horton M.D. [address] [place] [address] [facility] Referral ID Status Reason Start Date Expiration Date Visits Re quested Visits Authorized [id number] Closed 03/12/2024 09/11/2025 1 1 Reason for Visit * Reason Comments Leg Problem Encounter Details Date Type Department Care Team (Late st Contact Info) Description 03/12/2024 9:25 AM CDT - 03/12/2024 11:31 AM CDT Emergency [facility] [address] [place] [phone] Thuan Horton M.D. [address] [place] [phone] Injury Hip Initial Right (Primary Dx); [...] any clubs o r organizations such as orthodox groups, unions, fraternal or athletic groups, or [...] Answer Date Recorded PHQ-2 Score 0 11/16/2022 [facility] of Occupat ional Health - Occupational [...] your living situation today? I have a [facility] place to live 09/20/2023 Education [...] mg 2 tablets up to 4 times [id number] mg/day OR Extended Release 650 mg 2 [...] OF PRESENT ILLNESS Workmen's Compensation Evaluation Employer: [employer], [place] Date of Injury: 03/12/2024 23-year-old female [...] seen and did have some Tylenol-acetaminophen and Rzctd-Sxpley-Nbhysunnv givenfor the department supply. She is rating [...] She fell doing some Tylenol-acetaminophen, alternating with Afmvo-Dwgznl-Uwytklsuh and then ice and heat would be [...] Department follow-up of right leg injury Region: [facility] Region ED Visit F/U Specialty?: Occupational Medicine Contact Information for Follow-ups Occupational Medicine Next Steps: Follow up in 2 day(s) Instructions: For Recheck Clifford, Joaquin, M.D. 03/12/242113 * Joann Alexis R.N. - 03/12/2024 9:25 AM CDT Right hip vs pt leg while trying to restraint patient, ice to affected area Joann Alexis R.N. 03/12/249[address] documented in this encounter Plan of Treatment Upcoming Encounters Date Type Department Care Team (Late st Contact Info) Description 07/18/2024 10:20 AM CDT Appointment Department of Laboratory Medicine and Pathology, [facility] in [place], [place] [address] [place] [phone] James Sanchez M.D. [address] [place] [phone] 07/18/2024 11:15 AM CDT Office Visit Department of Cardiovascular Medicine in [place], [place] [address] [place] [phone] James Sanchez M.D. [address] [place] [phone] Scheduled Referrals Name Type Priority Associated Diagnoses [...] M.D. IMG DIAGNOSTIC OLIVIA GING PROCEDURES * DX Pelvis [...] Right documented in this encounter Care Teams Bush And Vine Farmer Fruit Crops Relationship Specialty Start Date End Date Elsewhere, Pcp PCP - General Internal Medicine 08/04/23 documented as of this encounter
--- OUTSIDE RECORDS SUMMARY | 2024-04-30 08:03 | XMS_ITS | Clinical Summary ---
Author Organization [facility] Address [place], [place] [address] Care Team Providers Care Cardiovascular Rn Name Role Phone Jose Johnson MD Primary [...] - - Pulse 112 11/13/2021 1:51 PM PHYSICIAN GENERAL PRACTICE Temperature 37.1 ??C (98.8 ??F) 11/13/2021 1:51 PM CS T Respiratory Rate - - Oxygen Saturation 99% 11/13/2021 1:51 PM PHYSICIAN GENERAL PRACTICE Inhaled Oxygen Concentration - - Weight - [...] age to complete this topic Care Teams Cardiovascular Rn Relationship Specialty [place] [address] [phone] PCP - General 05/12/07
--- NOTE | 2024-04-30 08:15 | CRLHL7_ITS ---
For Patients: As a result of the Century Cures Act, medical imaging exams and procedure reports are released immediately into your electronic medical record. You may view this report before your referring provider. If you have questions, please contact your health care provider. CLINICAL HISTORY: Pelvic pain, dysmenorrhea TECHNIQUE: 2D rivera scale ultrasound. In addition color Doppler and spectral Doppler analysis was performed of the pelvis using a transvaginal approach. FINDINGS: On transvaginal imaging, the myometrium has a normal uniform echotexture. The uterus measures 7.2 x 4.3 x 4.9 cm. The endometrial lining appears normal and measures 3 mm in thickness. The right ovary measures 4.1 x 2.2 x 2.6 cm in size and the left ovary measures 3.5 x 2.1 x 2.2 cm. The ovaries demonstrate normal arterial and venous blood flow on color Doppler and spectral Doppler analysis. There are no suspicious fluid collections within the cul-de-sac. IMPRESSION: Normal pelvic ultrasound. Normal ovaries. No adnexal mass or excess pelvic free fluid. No torsion. Dictated by Ramu Cornell MD @ 04/30/2024 1:27:59 PM (Electronically Signed)
== END 2024-04-30 08:00 | disposition home or self-care (01) ==
LOC: US 08:00
PROVIDERS: PCP Nurse Practitioner Family; Visit Provider Obstetrics & Gynecology
DX: N94.6 Dysmenorrhea, unspecified (principal); R10.2 Pelvic and perineal pain
CPT/HCPCS: 76830; 93976

== ENCOUNTER 2024-05-25 09:59 | Day surgery (SDC) | payer OTHER, SELFPAY ==
[2024-05-25] VITALS (14 sets, daily range): BP systolic 113–144; BP diastolic 68–95; PULSE 77–126; RESP 11–22; TEMP 36.8–37.3; O2SAT 93–99; BMI 27.4
--- OUTSIDE RECORDS SUMMARY | 2024-05-25 10:02 | XMS_ITS | Encounter Summary ---
Author Organization [facility] Address [address] [place] [address] Care Team Providers Care Php Wordpress Developer Name Role Phone Elsewhere, Pcp Primary Care Provider Unavailabl e Reason for Visit * Reason Comments Med Refill Encounter Details Date Type Department Care Team (Late st Contact Info) Description 04/30/2024 Refill Department of Cardiovascular Medicine in [place], [place] [address] [place] [address] James Sanchez M.D. [address] [place] [phone] Med Refill Social History Tobacco Use Types Packs/Day Years [...] any clubs o r organizations such as taoist groups, unions, fraternal or athletic groups, or [...] Answer Date Recorded PHQ-2 Score 0 11/16/2022 [facility] of Occupat ional Health - [...] your living situation today? I have a [facility] place to live 09/20/2023 Education Answer [...] Appointment Department of Laboratory Medicine and Pathology, [facility] in [place], [place] [address] [place] [address] James Sanchez M.D. [address] [place] [address] 07/18/2024 11:15 AM CDT Office Visit Department of Cardiovascular Medicine in [place], [place] [address] [place] [address] James Sanchez M.D. [address] [place] [phone] documented as of this encounter Visit Diagnoses Not on filedocumented in this encounter Care Teams Php Wordpress Developer Relationship Specialty Start Date End Date Elsewhere, Pcp PCP - General Internal Medicine 08/04/23 documented as of this encounter
--- OUTSIDE RECORDS SUMMARY | 2024-05-25 10:02 | XMS_ITS | Referral Summary ---
Author Organization [facility] Address [address] [place] [address] Care Team Providers Care Mechanical Field Engineer Name Role Phone Elsewhere, Pcp Primary Care Provider Unavailabl e Source Comments Patient records contain information from all sites at [facility]. For routine questions regarding patient records, call [phone] during business hours, M-F 8:00 AM - 5:00 PM Central Time. Record requests for emergency care only can be directed to [phone] at any time.[facility] Encounters Date Type Department Care Team Description 04/30/2024 Refill Department of Cardiovascular Medicine in [place], [place] [address] [place] [address] James Sanchez M.D. Med Refill 04/30/2024 Refill Department of Cardiovascular Medicine in [place], [place] [address] [place] [phone] James Sanchez M.D. Med Refill 04/11/2024 2:15 PM CDT Telemedicine Department of Cardiovascular Medicine in [place], [place] [address] [place] [phone] James Sanchez M.D. Tachycardia Sinus (Primary Dx); Abnormal Weight Gain 03/20/2024 8:15 AM CDT Office Visit Department of Occupational Medicine in [address] [phone] Audrey Reyna P.A.-C., P.A. Injury Hip Initial Right; Injury Leg Initial Right Discharge Disposition: Home or Self Care 03/14/2024 11:15 AM CDT Comprehensive Visit Department of Occupational Medicine in [address] [phone] Audrey Reyna P.A.-C., P.A. Injury Hip Initial Right; Injury Leg Initial Right Discharge Disposition: Home or Self Care 03/12/2024 9:25 AM CDT - 03/12/2024 11:31 AM CDT Emergency [facility] [address] [facility] [place] [phone] Thuan Horton M.D. Injury Hip Initial Right (Primary Dx); Injury Leg Initial Right Discharge Disposition: Home or Self Care from Last 3 Months Allergies Active Allergy Reactions Criticality Noted Date Comments Bee Venom Protein (Honey Bee) Anaphylaxis 07/18/2019 Influenza Virus Vaccine Trivalent 4637-3166 (2) Other (see comments) 09/26/2023 Latex Rash [...] Active albuterol 2.5 mg /3 mL nebulizer solutionIndicati ons:Asthma Exacerbation (HCC) Inhale 3 mL (2.5 mg total) by nebulization every 4 (four) hours as needed for wheezing or shortness of breath. 225 mL 3 3 Active levothyroxine (SYNTHROID, LEVOTHROID) 125 mcg tablet Take 125 mcg by mouth every morning before breakfast. Active metoprolol tartrate (LOPRESSOR) 25 mg tablet take one tablet by mouth twice a day 180 tablet 3 4 Active metoprolol tartrate (LOPRESSOR) 25 mg tablet Take 1 tablet (25 mg total) by mouth 2 (two) times a day. 120 tablet 1 4 024 Discontinued Active Problems Problem Noted Date Diagnosed Date Hypothyroidism 07/18/2019 Pain Epigastric 03/01/2019 Overview: Added automatically from request for surgery [id number] Attention Deficit With Hyperactivity Disorder Overview: ADHD Pain Hand Right Resolved Problems Problem Noted Date Diagnosed Date Resolved Date Vomiting 03/01/2019 11/17/2021 Overview: Added automatically from request for surgery [id number] Immunizations Name Administration Dates Next Due 4vHPV [...] week 2022 How often do you attend [facility] or jain services? 1 to 4 times per year 2022 Do you belong to any clubs o r organizations such as episcopal groups, unions, fraternal or athletic groups, or [...] Answer Date Recorded PHQ-2 Score 0 11/16/2022 [facility] of Occupat ional Health - Occupational [...] Answer Date Recorded Employment status Unemployed/not in e paid workforce but seeking employment 09/20/2023 Housing Stability Answer Date Recorded What is your living situation today? I have a [facility] place to live 09/20/2023 Education Answer [...] Appointment Department of Laboratory Medicine and Pathology, [facility], in [place], [place] [address] [place] [address] James Sanchez M.D. [address] [place] [address] 07/18/2024 11:15 AM CDT Office Visit Department of Cardiovascular Medicine in [place], [place] [address] [place] [address] James Sanchez M.D. [address] [place] [address] Medical Devices Implanted Type Area Dental Office Manager Device Identifier Shelf Expiration Date Model [...] negativepelvis and right femur. Thuan Horton M.D. [facility] OLIVIA GING PROCEDURES * DX Pelvis [...] Thuan PANDEY DIAGNOSTIC OLIVIA GING PROCEDURES * Thyroid Function [place] (07/29/2023 9:55 AM CDT) TSH, Sensitive 1.2 0.3 - 4.2 mIU/L 07/29/2023 11:05 AM CDT DTL Blood (Blood, Venous) 07/29/2023 9:55 AM CDT 07/29/2023 10:31 AM CDT Gildardo Lofton APRN, C.N.P. LAB BLOOD ADD-ON [facility] [address] [place] [address], [place] DTL [facility] [address] [place] [address] from Last 3 Months or Most Recently Relevant to Health Maintenance Advance Directives For more information, please contact: [phone] * Full Code (Latest Code Status on File) Date Activated Date Inactivated Comments 07/18/2019 12:23 PM 07/18/2019 3:09 PM Question Answer Comments Full Code: Discussed Care Teams Mechanical Field Engineer Relationship Specialty Start Date End Date Elsewhere, Pcp PCP - General Internal Medicine 08/04/23
--- OUTSIDE RECORDS SUMMARY | 2024-05-25 10:02 | XMS_ITS | Encounter Summary ---
Author Organization [facility] Address [address] [place] [address] Care Team Providers Care Client Relations Representative Name Role Phone Elsewhere, Pcp Primary Care Provider Unavailabl e Reason for Referral * Outpatient (Routine) - Closed Specialty Diagnoses / Procedures Referred By Steff wallace Referred To Contact Preventive Medicine Diagnoses Injury Hip Initial Right Injury Leg Initial Right Audrey Reyna P.A.-C., P.A. [address], [place] [address] [facility] Region Referral ID Status Reason Start Date Expiration Date Visits Re quested Visits Authorized [id number] Closed 03/14/2024 09/13/2025 1 1 Reason for Visit * Reason Comments Work Related Injury [facility] RW, DOI 03/12/24 , right hip * Outpatient (Routine) - Closed Specialty Diagnoses / Procedures Referred By Contjules wallace Referred To Contact Emergency Medicine Diagnoses Injury Hip Initial Right Injury Leg Initial Right Thuan Horton M.D. [address] [place] [phone] [facility] Region Referral ID Status Reason Start Date Expiration Date Visits Re quested Visits Authorized [id number] Closed 03/12/2024 09/11/2025 1 1 Encounter Details Date Type Department Care Team (Latest Contact Info) Description 03/14/2024 11:15 AM CDT Comprehensive Visit Department of Occupational Medicine in [address] [address] Audrey Reyna P.A.-C., P.A. [address] [phone] Injury Hip Initial Right; Injury Leg Initial [...] week 2022 How often do you attend [facility] or [facility] services? 1 to 4 times [...] Answer Date Recorded PHQ-2 Score 0 11/16/2022 [facility] Occupat ional Health - Occupational [...] your living situation today? 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 She has worked here for 3 months. [...] (Honey Bee) Anaphylaxis Influenza Virus Vaccine Trivalent 6377-1520 (2) Other (see comments) OBJECTIVE BP 122/77 [...] Appointment Department of Laboratory Medicine and Pathology, [facility], in [place], [place] [address] [place] [address] James Sanchez M.D. [address] [place] [address] 07/18/2024 11:15 AM CDT Office Visit Department of Cardiovascular Medicine in [place], [place] [address] [place] [address] James Sanchez M.D. [address] [place] [address] Scheduled Referrals Name Type Priority Associated Diagnoses Order Schedule Preventive Medicine office visit (clinic) Outpatient Referral Routine Injury Hip Initial Right Injury Leg Initial Right Expected: 03/28/2024, Expires: 06/14/2025 documented as of this encounter Visit Diagnoses Diagnosis Injury Hip Initial Right Injury Leg Initial Right documented in this encounter Care Teams Client Relations Representative Relationship Specialty Start Date End Date Elsewhere, Pcp PCP - General Internal Medicine 08/04/23 documented as of this encounter
--- OUTSIDE RECORDS SUMMARY | 2024-05-25 10:02 | XMS_ITS | Encounter Summary ---
Author Organization [facility] Address [address] [place] [address] Care Team Providers Care Application Support Lead Name Role Phone Elsewhere, Pcp Primary Care Provider Unavailabl e Reason for Visit * Reason Comments Med Refill Encounter Details Date Type Department Care Team (Late st Contact Info) Description 04/30/2024 Refill Department of Cardiovascular Medicine in [place], [place] [address] [place] [address] James Sanchez M.D. [address] [place] [phone] Med Refill Social History Tobacco Use Types [...] your living situation today? I have a [facility] place to live 09/20/2023 Education Answer [...] PM CDT documented as of this encounter Miscellaneous Notes * Telephone Encounter - James Sanchez M.D. - 04/30/2024 1:04 PM CDT Duplicate request documented in this encounter Plan of Treatment Upcoming Encounters Date Type Department Care Team (Late st Contact Info) Description 07/18/2024 10:20 AM CDT Appointment Department of Laboratory Medicine and Pathology, [facility], in [place], [place] [address] [place] [address] James Sanchez M.D. [address] [place] [address] 07/18/2024 11:15 AM CDT Office Visit Department of Cardiovascular Medicine in [place], [place] [address] [place] [address] James Sanchez M.D. [address] [place] [address] documented as of this encounter Visit Diagnoses Not on filedocumented in this encounter Care Teams Application Support Lead Relationship Specialty Start Date End Date Elsewhere, Pcp PCP - General Internal Medicine 08/04/23 documented as of this encounter
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
--- OUTSIDE RECORDS SUMMARY | 2024-05-25 10:02 | XMS_ITS | Clinical Summary ---
Author Organization [facility] Address [address] [place] [address] Care Team Providers Care Microarray Specialist Name Role Phone Elsewhere, Pcp Primary Care Provider Unavailabl e Source Comments Patient records contain information from all sites at [facility]. For routine questions regarding patient records, call [phone] during business hours, M-F 8:00 AM - 5:00 PM Central Time. Record requests for emergency care only can be directed to [phone] at any time.[facility] Allergies Active Allergy Reactions Criticality Noted Date Comments Bee Venom Protein (Honey Bee) Anaphylaxis 07/18/2019 Influenza Virus Vaccine Trivalent 2044-1558 (2) Other (see comments) 09/26/2023 Latex Rash [...] Overview: Added automatically from request for surgery [id number] Attention Deficit With Hyperactivity Disorder Overview: ADHD Pain Hand Right Resolved Problems Problem Noted Date Diagnosed Date Resolved Date Vomiting 03/01/2019 11/17/2021 Overview: Added automatically from request for surgery [id number] Encounters Date Type Department Care Team Description 04/30/2024 Refill Department of Cardiovascular Medicine in [place], [place] [address] [place] [address] James Sanchez M.D. Med Refill 04/30/2024 Refill Department of Cardiovascular Medicine in [place], [place] [address] [place] [address] James Sanchez M.D. Med Refill 04/11/2024 2:15 PM CDT Telemedicine Department of Cardiovascular Medicine in [place], [place] [address] [place] [address] James Sanchez M.D. Tachycardia Sinus (Primary Dx); Abnormal Weight Gain 03/20/2024 8:15 AM CDT Office Visit Department of Occupational Medicine in [address] [phone] Audrey Reyna P.A.-C., P.A. Injury Hip Initial Right; Injury Leg Initial Right Discharge Disposition: Home or Self Care 03/14/2024 11:15 AM CDT Comprehensive Visit Department of Occupational Medicine in [address] [address] Audrey Reyna P.A.-C., P.A. Injury Hip Initial Right; Injury Leg Initial Right Discharge Disposition: Home or Self Care 03/12/2024 9:25 AM CDT - 03/12/2024 11:31 AM CDT Emergency [facility] [address] [place] [phone] Thuan Horton M.D. Injury Hip Initial Right [...] cancer Father Manoj finney Sleep apnea Father Ray walker Other cancer Maternal Grandfather Davy finney Skin cancer Maternal Grandfather Dayv finney Alopecia Mother Helen finney Sleep apnea Mother Helen finney Melanoma Paternal Grandfather Romel voss Prostate cancer Paternal Grandfather Romel voss Skin cancer Paternal Grandfather Romel voss Stroke Paternal Grandmother Shreya voss Relation Name Status Comments Father Ray walker Maternal Grandfather Davy walker Mother Helen walker Paternal Grandfather Romel voss Paternal Grandmother Shreya [...] week 2022 How often do you attend [facility] or congregational services? 1 to 4 times per year 2022 Do you belong to any clubs o r organizations such as hindu groups, unions, fraternal or athletic groups, or [...] 0 11/16/2022 [facility] of Occupat ional Health - Occupational [...] your living situation today? I have a [facility] place to live 09/20/2023 Education Answer Date [...] Appointment Department of Laboratory Medicine and Pathology, [facility], in [place], [place] [address] [place] [address] James Sanchez M.D. [address] [place] [phone] 07/18/2024 11:15 AM CDT Office Visit Department of Cardiovascular Medicine in [place], [place] [address] [place] [address] James Sanchez M.D. [address] [place] [phone] Health Maintenance Due Date Last Done Comments [...] history exists Medical Devices Implanted Type Area Household Appliance Assembler Device Identifier Shelf Expiration Date Model / [...] negativepelvis and right femur. Thuan Horton M.D. [facility] OLIVIA GING PROCEDURES * DX Pelvis [...] negativepelvis and right femur. Thuan Horton M.D. [facility] OLIVIA GING PROCEDURES * Thyroid Function [place] (07/29/2023 9:55 AM CDT) TSH, Sensitive 1.2 0.3 - 4.2 mIU/L 07/29/2023 11:05 AM CDT DTL Blood (Blood, Venous) 07/29/2023 9:55 AM CDT 07/29/2023 10:31 AM CDT Gildardo Lofton APRN, C.N.P. LAB BLOOD ADD-ON [facility] [address] [place] [address], [place] DTL [facility] [address] [place] [address] from Last 3 Months or Most Recently Relevant to Health Maintenance Advance Directives For more information, please contact: [phone] * Full Code (Latest Code Status on File) Date Activated Date Inactivated Comments 07/18/2019 12:23 PM 07/18/2019 3:09 PM Question Answer Comments Full Code: Discussed Care Teams Microarray Specialist Relationship Specialty Start Date End Date Elsewhere, Pcp PCP - General Internal Medicine 08/04/23
--- OUTSIDE RECORDS SUMMARY | 2024-05-25 10:02 | XMS_ITS | Encounter Summary ---
Author Organization [facility] Address [address] [place] [address] Care Team Providers Care Shine Worker Name Role Phone Sofia Chavis DO Primary Care Provider [phone] Encounter Details Date Type Department Care Team (Late st Contact Info) Description 08/30/2021 HIM Licensing And Registration Director [facility] Family Medicine [address] [facility] [address] Casey Grayson MD [address] [place] [address] Social History Tobacco Use Types Packs/Day [...] you attend chur ch or druze services? Never 06/01/2021 Do you belong to any clubs o r organizations such as mandaeism groups, unions, fraternal or athletic groups, or [...] hard 06/01/2021 [facility] of Occupat ional [facility] - Occupational Stress Questionnaire Answer Date Recorded [...] or slept in a longterm (including now)? Yes 06/01/2021 Depression (PHQ-9) Answer [...] Grayson MD jml P P Doc #: [id number] documented in this encounter Plan of Treatment Not on file documented as of this encounter Visit Diagnoses Not on filedocumented in this encounter Additional Health Concerns Infection Onset Date Last Indicated Resolved Time COVID-19 Rule Out 09/28/2021 09/28/2021 09/29/2021 12:38 PM AUTOMOBILE LIGHTS ASSEMBLER COVID-19 Rule Out 12/14/2021 12/14/2021 12/15/2021 6:40 PM AUTOMOBILE LIGHTS ASSEMBLER COVID-19 Rule Out 01/01/2022 01/01/2022 01/01/2022 10:04 AM AUTOMOBILE LIGHTS ASSEMBLER Respiratory Rule-Out 01/01/2022 01/01/2022 022 10:03 AM AUTOMOBILE LIGHTS ASSEMBLER documented as of this encounter Care Teams Shine Worker Relationship Specialty Start Date End Date Sofia Chavis DO [address] [place] [address] PCP - General Family Medicine 08/15/20 03/31/22 documented as of this encounter Additional Source Comments PLEASE NOTE: Replies to this message will not be received.[facility] and [facility]
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
--- OUTSIDE RECORDS SUMMARY | 2024-05-25 10:02 | XMS_ITS ---
Author Organization [facility] Address [address] [place] [address] Care Team Providers Care Software Applications Engineer Name Role Phone Unavailable Unavailable Unavailable Surgery Details Not on file Complications Check Surgery Details section. Procedure Estimated Blood Loss Check Surgery Details section. Procedure Findings Check Surgery Details section. Procedure Specimens Taken Check Surgery Details section.
--- OUTSIDE RECORDS SUMMARY | 2024-05-25 10:02 | XMS_ITS | Encounter Summary ---
Author Organization [facility] Address [address] [place] [address] Care Team Providers Care Knitting Inspector Name Role Phone Elsewhere, Pcp Primary Care Provider Unavailabl e Reason for Referral * Outpatient (Routine) - Pending Review Specialty Diagnoses / Procedures Referred By Contac t Referred To Contact Preventive Medicine Diagnoses Injury Hip Initial Right Injury Leg Initial Right Audrey Reyna P.A.-C., P.A. [address] [phone] [facility] Region Referral ID Status Reason Start Date Expiration Date V isits Requested Visits Authorized [id number] Pending Review 03/20/2024 09/19/2025 1 1 Reason for Visit * Reason Comments Hip Injury [facility]- doi 03/12/24 * Outpatient (Routine) - Closed Specialty Diagnoses / Procedures Referred By Contac t Referred To Contact Preventive Medicine Diagnoses Injury Hip Initial Right Injury Leg Initial Right Maribell, Audrey Dalal P.A.-C., P.A. [address] [place] [phone] [facility] Region Referral ID Status Reason Start Date Expiration Date Visits Re quested Visits Authorized [id number] Closed 03/14/2024 09/13/2025 1 1 Encounter Details Date Type Department Care Team (Latest Contact Info) Description 03/20/2024 8:15 AM CDT Office Visit Department of Occupational Medicine in [address] [phone] Audrey Reyna P.A.-C., P.A. [address] [phone] Injury Hip Initial Right; Injury Leg Initial [...] week 2022 How often do you attend [facility] or latter-day services? 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 Orders Placed This Encounter Procedures Preventive Medicine office visit (clinic) MEDICATIONS PRESCRIBED TODAY: No orders of the defined types were placed in this encounter. Total time spent in encounter: 21 minutes documented in this encounter Plan of Treatment Upcoming Encounters Date Type Department Care Team (Late st [facility] Info) Description 07/18/2024 10:20 AM CDT Appointment Department of Laboratory Medicine and Pathology, [facility] in [place], [place] [address] [place] [phone] James Sanchez M.D. [address] [place] [phone] 07/18/2024 11:15 AM CDT Office Visit Department of Cardiovascular Medicine in [place], [place] [address] [place] [address] James Sanchez M.D. [address] [place] [phone] Scheduled Referrals Name Type Priority Associated Diagnoses Order Schedule Preventive Medicine office visit (clinic) Outpatient Referral Routine Injury Hip Initial Right Injury Leg Initial Right Expected: 04/06/2024, Expires: 06/20/2025 documented as of this encounter Visit Diagnoses Diagnosis Injury Hip Initial Right Injury Leg Initial Right documented in this encounter Care Teams Knitting Inspector Relationship Specialty Start Date End Date Elsewhere, Pcp PCP - General Internal Medicine 08/04/23 documented as of this encounter
--- OUTSIDE RECORDS SUMMARY | 2024-05-25 10:03 | XMS_ITS | Clinical Summary ---
Author Organization [facility] Address [place], [place] [address] Care Team Providers Care Building Consultant Name Role Phone Jose Johnson MD Primary [...] - - Pulse 112 11/13/2021 1:51 PM 3D SPECIALIST Temperature 37.1 ??C (98.8 ??F) 11/13/2021 1:51 PM CS T Respiratory Rate - - Oxygen Saturation 99% 11/13/2021 1:51 PM 3D SPECIALIST Inhaled Oxygen Concentration - - Weight - [...] age to complete this topic Care Teams Building Consultant Relationship Specialty [place] [id number] [phone] PCP - General 05/12/07
--- OUTSIDE RECORDS SUMMARY | 2024-05-25 10:03 | XMS_ITS | Encounter Summary ---
Author Organization [facility] Address [address] [place] [address] Care Team Providers Care Commercial Real Estate Assistant Name Role Phone Elsewhere, Pcp Primary Care Provider Unavailabl e Reason for Referral * Outpatient (Routine) - Closed Specialty Diagnoses / Procedures Referred By Steff t Referred To Contact Emergency Medicine Diagnoses Injury Hip Initial Right Injury Leg Initial Right Thuan Horton M.D. [address] [place] [phone] [facility] Referral ID Status Reason Start Date Expiration Date Visits Re quested Visits Authorized [id number] Closed 03/12/2024 09/11/2025 1 1 Reason for Visit * Reason Comments Leg Problem Encounter Details Date Type Department Care Team (Late st Contact Info) Description 03/12/2024 9:25 AM CDT - 03/12/2024 11:31 AM CDT Emergency [facility] [address] [place] [phone] Thuan Horton M.D. [address] [place] [phone] Injury Hip Initial Right (Primary Dx); [...] any clubs o r organizations such as jew groups, unions, fraternal or athletic groups, or [...] living situation today? I have a [facility] place to live 09/20/2023 Education Answer Date [...] mg 2 tablets up to 4 times urytc=[id number] mg/day OR Extended Release 650 mg 2 [...] Date albuterol 2.5 mg /3 mL nebulizer solutionIndications: Asthma Exacerbation (HCC) Inhale 3 mL (2.5 mg [...] mcg by mouth every morning before breakfast. pantoprazole (PROTONIX) 40 mg EC tablet TAKE 1 TABLET BY MOUTH ONCE DAILY ON AN EMPTY STOMACH 10/20/2021 metoprolol tartrate (LOPRESSOR) 25 mg tablet Take 1 tablet (25 mg total) by mouth 2 (two) times a day. 120 tablet 1 12/05/2023 04/30/2024 documented as of this encounter ED Notes * Thuan Horton M.D. - 03/12/2024 10:09 AM CDT Images from the original note were not included. SUBJECTIVE CHIEF COMPLAINT/REASON FOR VISIT Leg Problem HISTORY OF PRESENT ILLNESS Workmen's Compensation Evaluation Employer: [employer], [place], [place] Date of Injury: 03/12/2024 23-year-old female [...] seen and did have some Tylenol-acetaminophen and Ckawo-Ipgmiq-Uqynbfcgk givenfor the department supply. 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 [address] [place] [phone] 07/18/2024 11:15 AM CDT Office Visit Department of Cardiovascular Medicine in [place], [place] [address] [place] [phone] James Sanchez M.D. [address] [place] [phone] Scheduled Referrals Name Type Priority Associated Diagnoses [...] Right documented in this encounter Care Teams Commercial Real Estate Assistant Relationship Specialty Start Date End Date Elsewhere, Pcp PCP - General Internal Medicine 08/04/23 documented as of this encounter
[2024-05-25 10:23] LABS: Ur HCG Qualitative* Negative (Negative)
[2024-05-25] MEDS: LACTATED RINGERS 1000 ML 1,000 ML 100 ML IV (10:30)
[2024-05-25] MEDS: SODIUM CHLORIDE 0.9 % (FLUSH) 10 ML SYRINGE IVF (10:30)
[2024-05-25] MEDS: OXYMETAZOLINE 0.05% NASAL SPRAY 2 SPRAY NOSTRIL-B (10:41)
[2024-05-25] MEDS: COCAINE HCL 4 % 4 ML SOLUTION NOSTRIL-B (11:25)
[2024-05-25] MEDS: AYR SALINE NASAL GEL 1 APPLIC NOSTRIL-B (11:34)
[2024-05-25] MEDS: BUPIVACAINE 0.5%/EPINEPHRINE 0.9 MG (30.9 ML) INJECTION (11:40)
[2024-05-25] MEDS: MUPIROCIN 1 GM PACKET 1 APPLIC TOPICAL (11:44)
--- NOTE | 2024-05-25 11:48 | W.PM.ENTPROC ---
Procedure Note Date of procedure: 05/25/24 Procedure: Preoperative diagnosis nasal obstruction, nasal headache, deviated septum, bilateral inferior turbinate hypertrophy, right middle turbinate hypertrophy Postoperative diagnosis same Procedure nasal septoplasty, submucous partial resection inferior turbinates, reduction right middle turbinate Under general trach anesthesia patient was prepped and draped usual fashion the nose decongested with cocaine pledgets and injected. A right hemitransfixion incision was made left anterior and posterior tunnels were created. A vertical incision was made through the cartilage and a right posterior tunnel created. Deflected portions of septal bone superior right area 3 and left area 4 were resected by cutting above and below with an angled scissors. The piece of cartilage and bone was then removed with the Ewa Gentry forceps trimmed and returned to intraseptal space. A stab incision was made in the anterior of the right inferior turbinate a tunnel created with a Mario dissector. The emy bone was outfractured and a conservative anterior submucous resection performed with Genet forceps. The Coblation was used for hemostasis and to cauterize intramurally along the inferior 10%. This was repeated on the left side in identical fashion. The right middle turbinate was simply crushed with the Ewa Gentry forceps to narrow it narrow it. The hemitransfixion was closed with 2 4-0 chromic sutures silastic stents were secured with 3-0 nylon and Merocel pack was placed in each side of the nose outside the stents. The patient procedure well was taken recovery satisfactory condition. Blood loss was 25 mL. Surgeon: Antonio De Los Santos MD
--- NOTE | 2024-05-25 12:00 | W.ANESCHARGE ---
Anesthesia Charges Start Date/Time Anesthesia Start Date: 05/25/24 Anesthesia Start Time: 11:12 Stop Date/Time Anesthesia Stop Date: 05/25/24 Anesthesia Stop Time: 12:03
--- NOTE | 2024-05-25 12:05 | W.ANESCHARGE ---
Anesthesia Charges Start Date/Time Anesthesia Start Date: 05/25/24 Anesthesia Start Time: 11:12 Stop Date/Time Anesthesia Stop Date: 05/25/24 Anesthesia Stop Time: 12:03
[2024-05-25] MEDS: fentaNYL 100 MCG/2 ML inj 50 MCG IVP ×2 (12:18→12:25)
--- NOTE | 2024-05-25 12:43 | SUR.PHASEI ---
patient met discharge criteria per anesthesia
[2024-05-25] MEDS: ACETAMINOPHEN 325 MG TABLET PO (13:12)
[2024-05-25] MEDS: IBUPROFEN 200 MG TABLET PO (13:12)
== END 2024-05-25 13:30 | disposition home or self-care (01) ==
LOC: OR 10:00
PROVIDERS: Anesthesiology; PCP Nurse Practitioner Family; Visit Provider Otolaryngology
PROC: (CPT 30520; principal; 2024-05-25 11:30)
DX: J34.2 Deviated nasal septum (principal); J34.3 Hypertrophy of nasal turbinates; R51.9 Headache, unspecified; J34.89 Other specified disorders of nose and nasal sinuses
CPT/HCPCS: 30520; 30140; 30999; 160; 81025; A9270; J0330; J1100; J2250; J2405; J2704; J3010; J7120

== ENCOUNTER 2024-08-14 15:46 | Emergency (ER) | payer OTHER, SELFPAY ==
[2024-08-14 16:08] VITALS: BP 137/83; PULSE 86; RESP 20; TEMP 36.8; O2SAT 95; BMI 27.0
--- NOTE | 2024-08-14 16:27 | ED.GENADULT ---
HPI - General Adult General Chief complaint: Urogenital Problems, Female Stated complaint: Sent from -IUD paced today-severe pain Time Seen by Provider: 08/14/24 16:26 History of Present Illness HPI narrative: Had mirena placed this morning by ( 0900). Patient immediately had immediate sharp, severe pelvic pain. Has had 600mg ibuprofen, 1000mg tylenol, toradol without relief. 24 year old young woman with severe pain following Mirena placement. Placed this morning for what sounds like is a history of dysmenorrhea. Had been using Nexplanon but this apparently was become less effective. Immediately after the procedure is feeling severe sharp cramps that just do not seem to be letting up. Did take some ibuprofen and acetaminophen. Denies having taken ketorolac. Is using hot packs here. Related Data Home Medications ?Medication ?Instructions ?Recorded ?Confirmed cholecalciferol (vitamin D3) 50 50 mcg PO QDAY 05/31/22 08/14/24 mcg (2,000 unit) capsule clindamycin phosphate 1 % topical 1 ea topical DAILY 06/25/23 08/14/24 swab Previous Rx's ?Medication ?Instructions ?Recorded buspirone 10 mg tablet 10 mg PO BID #180 tabs 04/18/24 ketorolac 10 mg tablet 10 mg PO Q8H PRN pain 1 day #30 05/09/24 tabs albuterol sulfate 90 mcg/actuation See Rx Instructions inhalation 07/26/24 aerosol inhaler (Ventolin HFA) Q4-6H PRN asthma #8.5 grams atomoxetine 100 mg capsule 100 mg PO QAM #90 caps 07/26/24 escitalopram oxalate 20 mg tablet 20 mg PO DAILY #90 tabs 07/26/24 levothyroxine 125 mcg tablet 125 mcg PO DAILY #90 tabs 07/26/24 metoprolol tartrate 25 mg tablet 25 mg PO BID #180 tabs 07/26/24 pantoprazole 40 mg tablet,delayed 40 mg PO BID #180 tabs 07/26/24 release Allergies Allergy/AdvReac Type Severity Reaction Status Date / Time bee venom protein (honey bee) Allergy Unknown Verified 08/14/24 16:08 latex Allergy Unknown Verified 08/14/24 16:08 influenza virus vacc AdvReac Verified 08/14/24 16:08 trivalent, who Review of Systems Status of ROS: Reports: 6 or more systems reviewed and unremarkable except as noted in History and below [facility] Medical History Depression ?F32.A - Depression, unspecified (ICD-10) Asthma ?J45.909 - Unspecified asthma, uncomplicated (ICD-10) Constipation ?K59.00 - Constipation, unspecified (ICD-10) GERD (gastroesophageal reflux disease) ?K21.9 - Gastro-esophageal reflux disease without esophagitis (ICD-10) ADHD ?F90.9 - Attention-deficit hyperactivity disorder, unspecified type (ICD-10) ADD (attention deficit disorder) ?F98.8 - Other specified behavioral and emotional disorders with onset usually occurring in childhood and adolescence (ICD-10) Anxiety ?F41.9 - Anxiety disorder, unspecified (ICD-10) Congenital hypothyroidism ?E03.1 - Congenital hypothyroidism without goiter (ICD-10) Surgical History H/O hand surgery ?Z98.890 - Other specified postprocedural states (ICD-10) Family History Family/Other Stroke Father High blood pressure Mother Osteoporosis Family/Other Cancer Social History Narrative: Single. No children. Non-smoker. Alcohol use: 5 per month. No illicit drug use. Smoking Status: Never smoker Do you use any of these nicotine containing products: None Second hand tobacco smoke exposure: No How often do you have a drink containing alcohol: 2-4 times a month Alcohol type: hard liquor How many standard drinks containing alcohol do you have on a typical day: 1 or 2 How often do you have six or more drinks on one occasion: Never AUDIT-C Alcohol total score: 2 Non-prescribed substance use: denies use Caffeine: Yes Little interest or pleasure in doing things: more than half the days Feeling down, depressed, or hopeless: nearly every day Are you using contraception or practicing any form of control: No service: No Exam Narrative: Exam Narrative: Pleasant. Clearly uncomfortable. Has a couple chemical packs placed on her anterior pelvis. Breathing easily. Becomes tearful though in apparent discomfort/distress. Skin is warm and dry with a number of tattoos. Abdomen is soft and moderately tender to palpation of suprapubic area. Genitourinary exam is not done at this time. Well-perfused peripherally moving all extremities without difficulty Const: Vital Signs, click to edit/add: Vital Signs - 24 hr 08/14/24 16:08 Temperature 98.2 F Pulse Rate [Pulse Oximeter] 86 Respiratory Rate 20 Blood Pressure [Ri ght Upper Arm] 137/83 Pulse Oximetry 95 Oxygen Delivery Me thod Room Air Documenting provider has reviewed patient's vital signs: yes Course Vital Signs Vital signs: Initial Vital Signs Temperature 98.2 F 08/14/24 16:08 Temperature Source Temporal Artery Scan 08/14/24 16:08 Pulse Rate 86 08/14/24 16:08 Respiratory Rate 20 08/14/24 16:08 Blood Pressure 137/83 08/14/24 16:08 Blood Pressure Mean 101 08/14/24 16:08 Blood Pressure Position Sitting 08/14/24 16:08 Pulse Oximetry 95 08/14/24 16:08 Oxygen Delivery Method Room Air 08/14/24 16:08 Vital Signs Temperature 98.2 F 08/14/24 16:08 Pulse Rate 86 08/14/24 16:08 Respiratory Rate 20 08/14/24 16:08 Blood Pressure 137/83 08/14/24 16:08 Pulse Oximetry 95 08/14/24 16:08 Oxygen Delivery Method Room Air 08/14/24 16:08 Temperature 98.2 F 08/14/24 16:08 Pulse Rate 89 08/14/24 18:12 Respiratory Rate 20 08/14/24 18:12 Blood Pressure 124/88 08/14/24 18:12 Pulse Oximetry 98 08/14/24 16:45 Oxygen Delivery Method Room Air 08/14/24 16:08 Medications Administered Medications: Discontinued Medications Generic Name Dose Route Start Last Admin Trade Name Freq PRN Reason Stop Dose Admin Hydromorphone HCl 0.5 mg 08/14/24 16:32 08/14/24 16:48 Hydromorphone 0.5 Mg/0.5 Ml Inj IVP 08/14/24 16:33 0.5 mg ONCE ONE Administration Sodium Chloride 1,000 mls @ 1,000 mls/hr 08/14/24 16:32 08/14/24 18:08 0.9 % Sodium Chloride 1000 Ml IV 08/14/24 17:31 Infused .Q1H ONE Infusion Ketorolac Tromethamine 15 mg 08/14/24 16:32 08/14/24 16:48 Ketorolac 15 Mg/Ml Inj IVP 08/14/24 16:33 15 mg ONCE ONE Administration Medical Decision Making MDM Narrative Medical decision making narrative: Will need to confirm Mirena in correct location and not perforated. Does appear otherwise to be reacting in pain to this manipulation/change; perhaps not unexpected in history of significant dysmenorrhea. Not noted to have endometriosis. I suppose torsion is in differential as well. Pain however is more centrally and did coincide with placement of this IUD. Offering pain medication. IVs placed. Received L normal saline. Dose of hydromorphone and ketorolac due to intense appearance of pain Improved with this intervention. I do not think any labs are necessary at this time with minimal bleeding and would anticipate negative test prior to placement of IUD. Too soon for infection. Pelvic ultrasound as reviewed with quarry equipment operator noting IUD to be in place without perforation. Scant blood on probe. Small right ovarian cyst was also noted. Good blood flow to both ovaries. Pending Radiology over-read Discussed findings with OB on-call who was aware of this case. No further recommendations at this time. Feels moderately improved and that could go home. Discussed pain management options and concerns related to pain medication. See patient discharge plan for further discussion 04/30/2024 pelvic ultrasound TECHNIQUE: Sonographic evaluation of the pelvis was performed utilizing rivera-scale and color/spectral Doppler imaging techniques. Transvaginal images were obtained to improve assessment of the adnexa and endometrium. FINDINGS: The uterus is anteverted. The uterus measures 7.5 x 4.5 x 5.4 centimeters. The endometrial stripe measures 3 mm. No uterine mass lesions are sonographically detected. An IUD appears to be normally located within the endometrial cavity. The right ovary measures 3.8 x 2.6 x 3.1 cm. Vascular flow is detected in the right ovary. There is a anechoic right ovarian cyst measuring 3.1 x 1.6 x 2.3 centimeters. Overlying shadowing artifact somewhat limits evaluation of the left ovary. The left ovary measures 2.8 x 1.2 x 2 cm. Venous vascular flow is detected in the left ovary. Arterial vascular waveform is difficult to measure in the left ovary, which may be due to aforementioned artifact. No suspicious left ovarian mass is identified. No free fluid is detected in the pelvis. IMPRESSION: 1. An IUD appears to be normally located within the endometrial canal. No definite acute sonographic findings. 2. Simple appearing 3.1 centimeter right ovarian cyst for which no further imaging follow-up is recommended. 3. Overlying shadowing artifact somewhat limits evaluation of the left ovary. Venous vascular flow is detected in the left ovary. Arterial vascular waveform is difficult to measure in the left ovary, which may be due to the aforementioned artifact. Medical Records Medical records reviewed: Yes I reviewed the patient's medical records Discharge Plan Discharge Clinical Impression: Other acute postprocedural pain, Dysmenorrhea Patient Disposition: Home w/ Parent or Adult Condition: Improved Additional Instructions: Stay well-hydrated. Consider taking ibuprofen 600 mg 3 times a day maybe with a little bit of food over the next 3 days. If pain not controlled with ibuprofen, prescribing some [place] from [facility]. [place] can be sedating and constipating. Consider taking senna-containing product on the days that you might take some [place]. For uncontrolled pain, fever, associated repeated vomiting, return. Prescriptions: No Action cholecalciferol (vitamin D3) 50 mcg (2,000 unit) capsule 50 mcg PO QDAY clindamycin phosphate 1 % swab 1 ea topical DAILY ketorolac 10 mg tablet 10 mg PO Q8H PRN (Reason: pain) 1 Days Qty: 30 1RF metoprolol tartrate 25 mg tablet 25 mg PO BID Qty: 180 3RF levothyroxine 125 mcg tablet 125 mcg PO DAILY Qty: 90 3RF pantoprazole 40 mg tablet,delayed release (DR/EC) 40 mg PO BID Qty: 180 3RF albuterol sulfate [Ventolin HFA] 90 mcg/actuation HFA aerosol inhaler See Rx Instructions inhalation Q4-6H PRN (Reason: asthma) Qty: 8.5 2RF Rx Instructions: inhaled every 4-6 hours PRN; atomoxetine 100 mg capsule 100 mg PO QAM Qty: 90 1RF escitalopram oxalate 20 mg tablet 20 mg PO DAILY Qty: 90 3RF buspirone 10 mg tablet 10 mg PO BID Qty: 180 2RF Follow Up/Referrals: Yoli Mendes APRN, BICYCLE DESIGNER [Primary Care Provider] - Stand Alone Forms: [employer] Info Instructions
--- NOTE | 2024-08-14 16:33 | CRLHL7_ITS ---
For Patients: As a result of the Century Cures Act, medical imaging exams and procedure reports are released immediately into your electronic medical record. You may view this report before your referring provider. If you have questions, please contact your health care provider. INDICATION: Severe pain after placement of new IUD COMPARISON: 04/30/2024 pelvic ultrasound TECHNIQUE: Sonographic evaluation of the pelvis was performed utilizing rivera-scale and color/spectral Doppler imaging techniques. Transvaginal images were obtained to improve assessment of the adnexa and endometrium. FINDINGS: The uterus is anteverted. The uterus measures 7.5 x 4.5 x 5.4 centimeters. The endometrial stripe measures 3 mm. No uterine mass lesions are sonographically detected. An IUD appears to be normally located within the endometrial cavity. The right ovary measures 3.8 x 2.6 x 3.1 cm. Vascular flow is detected in the right ovary. There is a anechoic right ovarian cyst measuring 3.1 x 1.6 x 2.3 centimeters. Overlying shadowing artifact somewhat limits evaluation of the left ovary. The left ovary measures 2.8 x 1.2 x 2 cm. Venous vascular flow is detected in the left ovary. Arterial vascular waveform is difficult to measure in the left ovary, which may be due to aforementioned artifact. No suspicious left ovarian mass is identified. No free fluid is detected in the pelvis. IMPRESSION: 1. An IUD appears to be normally located within the endometrial canal. No definite acute sonographic findings. 2. Simple appearing 3.1 centimeter right ovarian cyst for which no further imaging follow-up is recommended. 3. Overlying shadowing artifact somewhat limits evaluation of the left ovary. Venous vascular flow is detected in the left ovary. Arterial vascular waveform is difficult to measure in the left ovary, which may be due to the aforementioned artifact. Dictated by Jeremias Esteves MD @ 08/14/2024 6:06:46 PM (Electronically Signed)
[2024-08-14 16:45] VITALS: O2SAT 98
[2024-08-14] MEDS: KETOROLAC 15 MG/ML inj IVP (16:48)
[2024-08-14] MEDS: 0.9 % SODIUM CHLORIDE 1000 ml 1,000 ML IV (16:48)
[2024-08-14] MEDS: HYDROmorphone 0.5 mg/0.5 ml inj IVP (16:48)
--- OUTSIDE RECORDS SUMMARY | 2024-08-14 17:21 | XMS_ITS | Encounter Summary ---
Author Organization [facility] Address [address] [place] [address] Care Team Providers Care Fisher Purse Seine Name Role Phone Elsewhere, Pcp Primary Care Provider Unavailabl e Reason for Referral * MRI/CAT/PET Scan (Routine) - Authorized Specialty Diagnoses / Procedures Referred By Steff wallace Referred To Contact Radiology Diagnoses Injury Hip Initial Right Procedures MR Hip Right without IV Contrast Verónica Rosado APRN, C.N.P. [address] [place] [address] [facility] Region Referral ID Status Reason Start Date Expiration Date V isits Requested Visits Authorized [id number] Authorized 08/08/2024 08/08/2025 1 1 Reason for Visit * Reason Comments Work Related Injury [facility] RW * Outpatient (Routine) - Closed Specialty Diagnoses / Procedures Referred By Steff wallace Referred To Contact Preventive Medicine Diagnoses Injury Hip Initial Right Injury Leg Initial Right Audrey Reyna P.A.-Travis., M.S. [address] [place] [address] [facility] Region Referral ID Status Reason Start Date Expiration Date Visits Re quested Visits Authorized [id number] Closed 03/20/2024 09/19/2025 1 1 Encounter Details Date Type Department Care Team (Latest Contact Info) Description 08/08/2024 1:00 PM CDT Office Visit Department of Occupational Medicine in [place], [place] [address] [place] [phone] Verónica Rosdao APRN, C.N.P. [address] [place] [phone] Injury Hip Initial Right; Injury Leg Initial [...] week 2022 How often do you attend [facility] or christianity services? 1 to 4 times per year [...] Answer Date Recorded PHQ-2 Score 0 [facility]20[facility] - Occupational Stress Questionnaire Answer Date [...] situation today? I have a [facility] place to live 09/20/2023 Education Answer [...] Sign Reading Time Taken Comments Blood Pressure 123/75 08/08/2024 12:50 PM CDT Pulse 97 08/08/2024 12:50 PM CDT Temperature 37.2 ??C (99 ??F) 08/08/2024 12:50 PM CDT Respiratory Rate - - Oxygen Saturation - - Inhaled Oxygen Concentration - - Weight - - Height - - Body Mass Index - - documented in this encounter Progress Notes * Verónica Rosado APRN, C.N.P. 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 female who presents for recheck of a right hip/leg injury. She has had persisting pain since the incident, but it remained tolerable until the past week. On the DOI a few hours into [...] up. She did not fall to the ground; she was evaluated by Dr. Horton with main concern for soft tissue injury, radiographs were negative. She presented here a few days later with largely unchanged symptoms. She was advised on continued home cares and provided restrictions. She had a return visit in early March noting sharp improvement in symptoms. Some mild tenderness was still noted over the greater trochanter but ROM and strength were intact. She was released to full duties. Today, she reports that the hip pain never fully resolved, but it was not affecting her function. However, over the past approximately 1 week, it began feeling worse without any known reason. Pain ispresent around the greater trochanter and just posteriorly She notes the pain just posterior to thehip is present at rest, and this pain will radiate both closer to the SI joint, as well as toward the groin with certain activity such as prolonged walking, or squatting. She has noticed intermittentpopping/clicking sound. She experiences a sensation of hip instability, as if it could dislocate. She is not currently pursuing any specific treatment. REVIEW OF SYSTEMS Negative except as mentioned in the History of Present Illness. The following portions of the patient's history were reviewed and updated as appropriate: allergies, current medications, medical history, social history, surgical history, and problem list. OBJECTIVE Vitals: 08/08/24 1250 BP: 123/75 Pulse: 97 Temp: 37.2 ??C PHYSICAL EXAMINATION GENERAL: Alert, relaxed female in no acute distress MUSCULOSKELETAL: Right hip - tenderness at the greater trochanter and stretching posteriorly. She has good hip flexion and extension, with mild pain during flexion against resistance. Hip abduction, external rotationand adduction while side lying all reproduce the posterolateral hip pain. LOGAN also produces lateral hip pain. No reproducible groin pain today. DIAGNOSTICS DX Femur Right 2 Views, DX [...] MMI: No. PPD: Undetermined. WORK RELATED: Yes. Claudia sustained a contusive force to the hip roughly 5 months ago. It improved to the point that she was able to resume normal work duties and was finding no functional limitations although the painnever fully resolved. Unfortunately, over the past week, the pain has started to increase again without any identifiable cause and it is limiting her ability to tolerate long-distance walking. She does feel her function is not impaired to the degree of being unable to do her job duties. Given duration of symptoms, advise we proceed with an MRI to better guide diagnosis and treatment recommendations. If symptoms remain stable, engage in regular duties, but if symptoms worsening, we may need to outline restrictions. WORK STATUS: full duty. See attached Report of Injury and Illness for full details. The patient wasgiven the yellow copy of the Worker Illness form. 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 Orders Placed This Encounter Procedures MR Hip Right without IV Contrast MEDICATIONS PRESCRIBED TODAY: No orders of the defined types were placed in this encounter. Total time spent in encounter: 33 minutes documented in this encounter Plan of Treatment Upcoming Encounters Date Type Department Care Team (Latest Contact Info) Description 08/22/2024 10:45 AM CDT Appointment Department of Radiology in [address] [phone] Verónica Rosado APRN, C.N.P. [address] [place] [phone] Discharge Disposition: Home or Self Care 08/27/2024 8:00 AM CDT Office Visit Department of Occupational Medicine in [address] [phone] Audrey Reyna P.A.-Travis., M.S. [address] [phone] Discharge Disposition: Home or Self Care Scheduled Orders Name Type Priority Associated Diagnoses Orde r Schedule MR Hip Right without IV Contrast Imaging RAD - Routine (most inpatients and all outpatients) Injury Hip Initial Right Expected: 08/22/2024, Expires: 11/07/2025 documented as of this encounter Visit Diagnoses Diagnosis Injury Hip Initial Right Injury Leg Initial Right documented in this encounter Care Teams Fisher Purse Seine Relationship Specialty Start Date End Date Elsewhere, Pcp PCP - General Internal Medicine 08/04/23 documented as of this encounter
--- OUTSIDE RECORDS SUMMARY | 2024-08-14 17:21 | XMS_ITS | Encounter Summary ---
Author Organization [facility] Address [address] [place] [address] Care Team Providers Care Program Evaluation Consultant Name Role Phone Elsewhere, Pcp Primary Care Provider Unavailabl e Encounter Details Date Type Department Care Team (Late st Contact Info) Description 07/31/2024 Orders Only Department of Cardiovascular Medicine in [place], [place] [address] [place] [phone] James Sanchez M.D. [address] [place] [address] Social History Tobacco Use Types Packs/Day Years [...] often do you attend chur ch or christian services? 1 to 4 times per year 2022 Do you belong to any clubs o r organizations such as advent groups, unions, fraternal or athletic groups, or [...] Answer Date Recorded PHQ-2 Score 0 11/16/2022 [facility] - Occupational Stress [...] your living situation today? I have a [facility] place to live 09/20/2023 Education Answer [...] AM CDT Appointment Department of Radiology in [address] [phone] Verónica Rosado APRN, C.N.P. [address] [place] [phone] Discharge Disposition: Home or Self Care 08/27/2024 8:00 AM CDT Office Visit Department of Occupational Medicine in [address] [phone] Audrey Reyna PJamieA.-C., M.S. [address] [place] [phone] Discharge Disposition: Home or Self Care documented as of this encounter Visit Diagnoses Not on filedocumented in this encounter Care Teams Program Evaluation Consultant Relationship Specialty Start Date End Date Elsewhere, Pcp PCP - General Internal Medicine 08/04/23 documented as of this encounter
--- OUTSIDE RECORDS SUMMARY | 2024-08-14 17:21 | XMS_ITS | Referral Summary ---
Author Organization [facility] Address [address] [place] [address] Care Team Providers Care Shower Room Attendant Name Role Phone Unavailable Primary Care Provider [...] of Nexplan on 06/04/2021 Overview: Nexplanon Lot #[id number] ; Expiration date: 05/14/2023; Insertion date: 06/04/21 Removal date: 06/04/2024 Displaced fracture of capita te (os magnum) bone, unspecified wrist, initial encounter for open fracture 12/10/2020 Mild intermittent asthma without complication Epigastric pain 03/01/2019 Overview: Added automatically from request for surgery [id number] Attention deficit hyperactivity disorder (ADHD) 06/09/2007 Anxiety state, unspecified 06/09/2007 Overview: ICD10 Regulatory Release Disturbance of conduct 06/09/2007 Overview: 02/12/22 IMO Regulator Release Replacements Hypothyroidism 06/08/2004 Overview: Problem list name updated by automated process. Provider to review Immunizations Name Administration Dates Next Due [id number] Vaccine, IM (Pentacel) 2001 DTaP Vac, <7 [...] 08/06/2021,09/28/2019,08/23/2018,10/07,09/17/2016,08/18/2015,09/19/2013 Influenza Vac, IM, Trivalent , Preserv Free (Flulaval)(Fluarix)(Fluzone) 09/02/2011 Influenza Vac, Intranasal, Quadrivalent (Flumist) 08/18/2015,09/21/2014,09/19/2013,08/07 [...] How often do you attend chur or advent services? 1 to 4 times [...] heating? Somewhat hard 01/07/2022 [facility] [place] of Occupat ional Health - Occupational Stress [...] DT Respiratory Rate 14 01/01/2022 10:15 AM LEAD WEB APPLICATION DEVELOPER Oxygen Saturation 100% 03/18/2022 11:40 AM CDT [...] Comments PAP TEST Routine 01/14/2022 3:57 PM LEAD WEB APPLICATION DEVELOPER Encounter for screening for cervical cancer CHLAMYDIA TRACHOMATIS AND NEISSERIA GONORRHOEAE, GENITAL AND URINE SOURCES, NAAT Routine 01/14/2022 3:57 PM LEAD WEB APPLICATION DEVELOPER Vaginal discharge from Last 3 Months or Most Recently Relevant to Health Maintenance Results * PAP TEST (01/14/2022 3:57 PM LEAD WEB APPLICATION DEVELOPER) Specimen Adequacy Satisfactory for evaluation: Endocervical component present. 2 1:01 PM LEAD WEB APPLICATION DEVELOPER [facility] Interpretation Negative for intraepithelial lesion or malignancy: Reactive cellular changes associated with inflammation (includes typical repair). Negative 2 1:01 PM [facility] Reflex? Reflex if ASCUS only 2 1:01 PM LEAD WEB APPLICATION DEVELOPER [facility] Menstrual Status Implant 01/16/20 2 2 1:01 PM LEAD WEB APPLICATION DEVELOPER [facility] Disclaimer/Infor mational Comment The [...] require additional confirmatory testing. 2 1:01 PM LEAD WEB APPLICATION DEVELOPER [facility] Other CERVIX UTERI STRUCTURE / Unknown Non-blood Collection / Unknown 01/14/2022 3:57 PM LEAD WEB APPLICATION DEVELOPER 01/14/2022 4:01 PM LEAD WEB APPLICATION DEVELOPER Sofia LEMON CYTOLOGY ORDER COREY Performing Organization Address City/State/[facility] Co de Phone Number [facility] [address] [place] [address], * CHLAMYDIA TRACHOMATIS AND NEISSERIA GONORRHOEAE, GENITAL AND URINE SOURCES, NAAT (01/14/2022 3:57 PM LEAD WEB APPLICATION DEVELOPER) Chlamydia trachomatis, NAAT Negative Negative 01/16/2022 2:41 PM LEAD WEB APPLICATION DEVELOPER [facility] Neisseria gonorrhoeae, NAAT Negative Negative 01/16/2022 2:41 PM LEAD WEB APPLICATION DEVELOPER [facility] Swab ENDOCERVICAL STRUCTURE / Unknown Non-blood Collection / Unknown 01/14/2022 3:57 PM LEAD WEB APPLICATION DEVELOPER 01/14/2022 4:00 PM LEAD WEB APPLICATION DEVELOPER Sofia Chavis DO LAB JUDITH YOUNG [facility] [address] [place] [address], from Last 3 Months or Most Recently Relevant to Health Maintenance Claudia Leach Personal/Family Self [address] [place] [address] Claudia Leach Third Republican Liability Self [address] [place] [address] [id number] Workers Comp Employer [address] [place] [address] [id number] [employer] Workers Comp Employer [address] [place] [address] Additional Source Comments PLEASE NOTE: Replies to this message will not be received.[facility] and [facility]
--- OUTSIDE RECORDS SUMMARY | 2024-08-14 17:21 | XMS_ITS | Clinical Summary ---
Author Organization [facility] Address [address] [place] [address] Care Team Providers Care Degreasing Wheel Operator Name Role Phone Unavailable Primary Care Provider [...] of Nexplan on 06/04/2021 Overview: Nexplanon Lot #[id number] ; Expiration date: 05/14/2023; Insertion date: 06/04/21 Removal date: 06/04/2024 Displaced fracture of capita te (os magnum) bone, unspecified wrist, initial encounter for open fracture 12/10/2020 Mild intermittent asthma without complication Epigastric pain 03/01/2019 Overview: Added automatically from request for surgery [id number] Attention deficit hyperactivity disorder (ADHD) 06/09/2007 Anxiety state, unspecified 06/09/2007 Overview: ICD10 Regulatory Release Disturbance of conduct 06/09/2007 Overview: 02/12/22 IMO Regulator Release Replacements Hypothyroidism 06/08/2004 Overview: Problem list name updated by automated process. Provider to review Immunizations Name Administration Dates Next Due [id number] Vaccine, IM (Pentacel) 2001 DTaP Vac, <7 [...] How often do you attend chur or sikhism services? 1 to 4 times [...] medical care, and heating? Somewhat hard 01/07/2022 [facility] [place] of Occupat ional Health - Occupational Stress [...] DT Respiratory Rate 14 01/01/2022 10:15 AM IT SALES CONSULTANT Oxygen Saturation 100% 03/18/2022 11:40 AM CDT [...] - 3-dose series) 10/08/2002 08/13/2002, 2001, 2001 Depression Screening 2013 HIV Screen 2016 Chlamydia Screen Age 16-24 Years 01/14/2023 01/14/2022 COVID-19 Vaccine ( season) 2024 10/09/2021, 03/20/2021, 02/20/2021 Influenza Vaccine (#1) 2024 [...] 04/24/2010, 03/06/20 09 HPV Vaccines Completed 02/19/2013, 06/2013, 11/08/2012, Additional history exists Meningococcal Vaccines Completed 06/21/2019, 2011 Procedures Procedure Name Priority Date/Time Associated Diagnosis Comments PAP TEST Routine 01/14/2022 3:57 PM IT SALES CONSULTANT Encounter for screening for cervical cancer CHLAMYDIA TRACHOMATIS AND NEISSERIA GONORRHOEAE, GENITAL AND URINE SOURCES, NAAT Routine 01/14/2022 3:57 PM IT SALES CONSULTANT Vaginal discharge from Last 3 Months or Most Recently Relevant to Health Maintenance Results * PAP TEST (01/14/2022 3:57 PM IT SALES CONSULTANT) Specimen Adequacy Satisfactory for evaluation: Endocervical component present. 2 1:01 PM IT SALES CONSULTANT [facility] Interpretation Negative for intraepithelial lesion or malignancy: Reactive cellular changes associated with inflammation (includes typical repair). Negative 2 1:01 PM IT SALES CONSULTANT [facility] Reflex? Reflex if ASCUS only 2 1:01 PM IT SALES CONSULTANT [facility] Menstrual Status Implant 01/16/20 2 2 1:01 PM [facility] Disclaimer/Infor mational Comment The Pap [...] require additional confirmatory testing. 2 1:01 PM IT SALES CONSULTANT [facility] Other CERVIX UTERI STRUCTURE / Unknown Non-blood Collection / Unknown 01/14/2022 3:57 PM IT SALES CONSULTANT 01/14/2022 4:01 PM IT SALES CONSULTANT Sofia Chavis DO LAB CYTOLOGY ORDER COREY Performing Organization Address City/State/[facility] Co de Phone Number [facility] [address] [place] [address], [place] [phone] * CHLAMYDIA TRACHOMATIS AND NEISSERIA GONORRHOEAE, GENITAL AND URINE SOURCES, NAAT (01/14/2022 3:57 PM IT SALES CONSULTANT) Chlamydia trachomatis, NAAT Negative Negative 01/16/2022 2:41 PM IT SALES CONSULTANT [facility] Neisseria gonorrhoeae, NAAT Negative Negative 01/16/2022 2:41 PM IT SALES CONSULTANT [facility] Swab ENDOCERVICAL STRUCTURE / Unknown Non-blood Collection / Unknown 01/14/2022 3:57 PM IT SALES CONSULTANT 01/14/2022 4:00 PM IT SALES CONSULTANT Sofia Chavis DO LAB MOLECULAR GRACE YOUNG Performing Organization Address [facility] Co de Phone Number [facility] [address] [place] [address], [place] [phone] from Last 3 Months or Most Recently Relevant to Health Maintenance Claudia Leach Personal/Family Self [address] [place] [address] Claudia Leach Third Constitution Party Liability Self [address] [place] [address] [id number] [employer] Workers Comp Employer [address] [place] [address] [id number] [employer] Comp Employer [address] [place] [address] Additional Source Comments PLEASE NOTE: Replies to this message will not be received.[facility] and [facility]
--- OUTSIDE RECORDS SUMMARY | 2024-08-14 17:21 | XMS_ITS ---
Author Organization [facility] Address [address] [place] [address] Care Team Providers Care Research And Development Tester Name Role Phone Unavailable Unavailable Unavailable Surgery Details Not on file Complications Check Surgery Details section. Procedure Estimated Blood Loss Check Surgery Details section. Procedure Findings Check Surgery Details section. Procedure Specimens Taken Check Surgery Details section.
--- OUTSIDE RECORDS SUMMARY | 2024-08-14 17:21 | XMS_ITS | Referral Summary ---
Author Organization [facility] Address [address] [place] [address] Care Team Providers Care House Furnishings Supervisor Name Role Phone Elsewhere, Pcp Primary Care Provider Unavailabl e Source Comments Patient records contain information from all sites at [facility]. For routine questions regarding patient records, call [phone] during business hours, M-F 8:00 AM - 5:00 PM Central Time. Record requests for emergency care only can be directed to [phone] at any time.[facility] Encounters Date Type Department Care Team Description 08/08/2024 1:00 PM CDT Office Visit Department of Occupational Medicine in [address] [phone] Verónica Rosado APRN, C.N.P. Injury Hip Initial Right; Injury Leg Initial Right Discharge Disposition: Home or Self Care 07/31/2024 Orders Only Department of Cardiovascular Medicine in [place], [place] [address] [place] [phone] James Sanchez M.D. 07/18/2024 10:00 AM CDT - 07/18/2024 11:59 PM CDT Hospital Encounter Department of Laboratory Medicine and Pathology, [facility] in [place], [place] [address] [place] [address] James Sanchez M.D. Tachycardia Sinus Discharge Disposition: Home or Self Care 07/18/2024 11:15 AM CDT Office Visit Department of Cardiovascular Medicine in [place], [place] [address] [place] [address] James Sanchez M.D. Hypothyroidism (Primary Dx); Tachycardia Sinus; Abnormal Weight Gain 06/23/2024 Nurse Triage Department of Family Medicine, [facility], in [address] [address] Avril Hensley R.N. Blepharitis from Last 3 Months Allergies Active Allergy Reactions Criticality Noted Date Comments Bee Venom Protein (Honey Bee) Anaphylaxis 07/18/2019 Influenza Virus Vaccine Trivalent 9639-7482 (2) Other (see comments) 09/26/2023 Latex Rash [...] mouth twice a day 180 tablet 3 04/30/2024 Active Active Problems Problem Noted Date Diagnosed Date Hypothyroidism 07/18/2019 Pain Epigastric 03/01/2019 Overview (03/01/2019): Added automatically from request for surgery [id number] Attention Deficit With Hyperactivity Disorder Overview (04/05/2017): ADHD Pain Hand Right Resolved Problems Problem Noted Date Diagnosed Date Resolved Date Vomiting 03/01/2019 11/17/2021 Overview (03/01/2019): Added automatically from request for surgery [id number] Immunizations Name Administration Dates Next Due 4vHPV (discontinued) 02/19/2013,11/08/2012,08/07 9vHPV 02/19/2013,11/08/2012,08/07/2012 DTaP (Daptacel) 07/01/2006, 2,02/21/2002,2001 DTaP (Infanrix, Tripedia) 08/07/2012,,10/29/2002,2001,2001,2001 DTaP, Unspecified 08/07/2012, 6,10/29/2002,2001,2001 DTaP-IPV/Hib (Pentacel) 2001 H1N1 All Forms 11/03/2009,10/02/2009 H1N1 Nasal 11/03/2009,10/02/2009 HepA Pediatric/Adolescent 04/24/2010,03/06/2009 HepB Adult (HEPLISAV-B) 2001 HepB, Unspecified 2001 Hib (PRP-OMP) (PedvaxHIB) 2001 Hib-HepB 08/13/2002,2001,2001 IPV 07/01/2006, 2,2001,2000 Influenza, Injectable, Quadrivalent 08/26/2020 Influenza, Unspecified 09/02/2011 MCV4 (Menactra)(Discontinued) 06/21/2019, 012 MMR 07/01/2006,10/29/2002 PCV13 2001 PCV7 (discontinued) 04/30/2002,02/21/2002,2001 SARS-COV-2 (COVID-19) - MODERNA(Discontinued) 10/09/2021 Tdap 07/13/2022,08/07/2012 JACQUELINE 03/06/2009,08/13/2002 influenza LAIV (Nasal) (2 ye ars through 49 years) 08/18/2015,09/21/2014,09/19/2013,2011 influenza trivalent LAIV (Na elio) (2 years through 49 years) 09/21/2014,08/07/2012 influenza trivalent vaccine (6 months and older)(PF) 09/02/2011 influenza vaccine quad (FLUZ ONE) (6 months-35 [...] any clubs o r organizations such as episcopalian groups, unions, fraternal or athletic groups, or [...] Answer Date Recorded PHQ-2 Score 0 11/16/2022 [facility] of Occupat ional Health - Occupational [...] ??F) 08/08/2024 12:50 PM CDT Respiratory Rate 18 03/20/2024 8:01 AM CDT Oxygen Saturation 98% 03/12/2024 9:30 AM CDT Inhaled Oxygen Concentration - - Weight 86 kg (189 lb 9.5 oz) 07/18/2024 10:57 AM CDT Height 177.3 cm (5' 9.8) 07/18/2024 10:57 AM CD T Body Mass Index 27.36 07/18/2024 10:57 AM CDT Plan of Treatment Upcoming Encounters Date Type Department Care Team (Latest Contact Info) Description 08/22/2024 10:45 AM CDT Appointment Department of Radiology in [address] [phone] Verónica Rosado APRN, C.N.P. [address] [place] [address] Discharge Disposition: Home or Self Care 08/27/2024 8:00 AM CDT Office Visit Department of Occupational Medicine in [place], [place] [address] [place] [address] Audrey Reyna P.A.-C., M.S. [address] [address] Discharge Disposition: Home or Self Care Medical Devices Implanted Type Area Senior Compliance Officer Device Identifier Shelf Expiration Date Model / Serial / Lot Gynecologic Other Gynecologic Other Left: Arm Description:Nexplanon Procedures Procedure Name Priority Date/Time Associated Diagnosis Comments MAGNESIUM, S Routine 07/18/2024 10:35 AM CDT Tachycardia Sinus BASIC METABOLIC PANEL, S/P Routine 07/18/2024 10:35 AM CDT Tachycardia Sinus HEMOGLOBIN A1C, B Routine 07/18/2024 10: 35 AM CDT Tachycardia Sinus LIPID PANEL, S Routine 07/18/2024 10:35 AM CDT Tachycardia Sinus THYROID FUNCTION CASCADE, S Routine 07/18/2024 10:32 AM CDT Hypothyroidism from Last 3 Months Results * Lipid Panel (07/18/2024 10:35 AM CDT) Pathologist [facility] Triglycerides 76 mg/dL 07/18/2024 11:40 AM CDT DTL Comment: ----REFERENCE VALUE---- Normal: <150 mg/dL Borderline High: 150-199 mg/dL High: 200-499 mg/dL Very High: > or =500 mg/dL Cholesterol, Total 177 mg/dL 2023 11:40 AM CDT DTL Comment: ----REFERENCE VALUE---- Desirable: < 200 mg/dL Borderline High: 200 - 239 mg/dL High: > or = 240 mg/dL Cholesterol, LDL, Calculated 106 mg/dL 07/18/2024 11:40 AM CDT DTL Comment: ----REFERENCE VALUE---- Desirable: <100 mg/dL Above Desirable: 100-129 mg/dL Borderline High: 130-159 mg/dL High: 160-189 mg/dL Very High: >=190 mg/dL ----ADDITIONAL INFORMATION---- LDL cholesterol calculated using the Cano/NIH equation. Cholesterol, HDL, S 57 >=50 mg/dL 07/18/2024 11:40 AM CDT DTL Cholesterol, Non-HDL, Calculated 120 mg/dL 07/18/2024 11:40 AM CDT DTL Comment: ----REFERENCE VALUE---- Desirable: <130 mg/dL Above Desirable: 130-159 mg/dL Borderline High: 160-189 mg/dL High: 190-219 mg/dL Very High: > or =220 mg/dL Fasting (8 HR or more) No 07/18/2024 10:35 AM CDT DTL Blood (Blood, Venous) 07/18/2024 10:35 AM CDT 07/18/2024 11:16 AM CDT James Sanchez M.D. LAB BLOOD A DD-ON Performing Organization Address City/[facility]/[place] [address], [facility] [place] [address] * Magnesium (07/18/2024 10:35 AM CDT) Magnesium, S 2.2 1.7 - 2.3 mg/dL 07/18/2024 11:40 AM CDT DTL Blood (Blood, Venous) 07/18/2024 10:35 AM CDT 07/18/2024 11:16 AM CDT James Sanchez M.D. LAB BLOOD A DD-ON [facility] [place] [address] [place] [address], [facility]note 3[facility] [address] [place] [address] * Hemoglobin A1c (07/18/2024 10:35 AM CDT) Hemoglobin A1c, B 5.1 4.0 - 5.6 % 07/18/2024 12:02 PM CDT DTL Blood (Blood, Venous) 07/18/2024 10:35 AM CDT 07/18/2024 11:08 AM CDT James Sanchez M.D. LAB BLOOD A DD-ON [facility] [place] [address] [place] [address], [address] [address] * (ABNORMAL) Basic Metabolic Panel (07/18/2024 10:35 AM CDT) Potassium, S 5.0 3.6 - 5.2 mmol/L 07/18/2024 11:40 AM CDT DTL Sodium, S 140 135 - 145 mmol/L 07/18/2024 11:40 AM CDT DTL Chloride, S 102 98 - 107 mmol/L 07/18/2024 11:40 AM CDT DTL Bicarbonate, S 26 22 - 29 mmol/L 07/18/2024 11:40 AM CDT DTL Anion Gap 12 7 - 15 07/18/2024 11:40 AM CDT DTL BUN (Blood Urea Nitrogen), S 11 6 - 21 mg/dL 07/18/2024 11:40 AM CDT DTL Creatinine 0.88 0.59 - 1.04 mg/dL 07/18/2024 11:40 AM CDT DTL Estimated GFR (eGFR) >90 >=60 mL/min/BSA 07/18/2024 11:40 AM CDT DTL Comment: Estimated GFR calculated using the 2020 CKD_EPI creatinine equation. Calcium, Total, S 10.1(H) 8.6 - 10.0 mg/dL 07/18/2024 11:40 AM CDT DTL Glucose, S 85 70 - 140 mg/dL 07/18/2024 11:40 AM CDT DTL Blood (Blood, Venous) 07/18/2024 10:35 AM CDT 07/18/2024 11:16 AM CDT James Sanchez M.D. LAB BLOOD A DD-ON [facility] [place] [address] [place] [address], [facility]note 3[facility] [address] [place] [address] * Thyroid Function [place] (07/18/2024 10:32 AM CDT) TSH, Sensitive 1.4 0.3 - 4.2 mIU/L 07/18/2024 3:19 PM CDT DTL Blood (Blood, Venous) 07/18/2024 10:32 AM CDT 07/18/2024 2:33 PM CDT James Sanchez M.D. LAB BLOOD A DD-ON [facility] [place] [address] [place] [address], [facility] [address] [place] [address] from Last 3 Months Advance Directives For more information, please contact: [phone] * Full Code (Latest Code Status on File) Date Activated Date Inactivated Comments 07/18/2019 12:23 PM 07/18/2019 3:09 PM Question Answer Comments Full Code: Discussed Care Teams House Furnishings Supervisor Relationship Specialty Start Date End Date Elsewhere, Pcp PCP - General Internal Medicine 08/04/23
--- OUTSIDE RECORDS SUMMARY | 2024-08-14 17:21 | XMS_ITS | Clinical Summary ---
Author Organization [facility] Address [address] [place] [address] Care Team Providers Care Web Specialist Name Role Phone Elsewhere, Pcp Primary Care Provider Unavailabl e Source Comments Patient records contain information from all sites at [facility]. For routine questions regarding patient records, call [phone] during business hours, M-F 8:00 AM - 5:00 PM Central Time. Record requests for emergency care only can be directed to [phone] at any time.[facility] Allergies Active Allergy Reactions Criticality Noted Date Comments Bee Venom Protein (Honey Bee) Anaphylaxis 07/18/2019 Influenza Virus Vaccine Trivalent 8485-4580 (2) Other (see comments) 09/26/2023 Latex Rash [...] (03/01/2019): Added automatically from request for surgery [id number] Attention Deficit With Hyperactivity Disorder Overview (04/05/2017): ADHD Pain Hand Right Resolved Problems Problem Noted Date Diagnosed Date Resolved Date Vomiting 03/01/2019 11/17/2021 Overview (03/01/2019): Added automatically from request for surgery [id number] Encounters Date Type Department Care Team Description 08/08/2024 1:00 PM CDT Office Visit Department of Occupational Medicine in [address] [phone] Verónica Rosado APRN, C.N.P. Injury Hip Initial Right; Injury Leg Initial Right Discharge Disposition: Home or Self Care 07/31/2024 Orders Only Department of Cardiovascular Medicine in [place], [place] [address] [place] [address] James Sanchez M.D. 07/18/2024 11:15 AM CDT Office Visit Department of Cardiovascular Medicine in [place], [place] [address] [place] [address] James Sanchez M.D. Hypothyroidism (Primary Dx); Tachycardia Sinus; Abnormal Weight Gain 07/18/2024 10:00 AM CDT - 07/18/2024 11:59 PM CDT Hospital Encounter Department of Laboratory Medicine and Pathology, [facility], in [place], [place] [address] [place] [address] James Sanchez M.D. Tachycardia Sinus Discharge Disposition: Home or Self Care 06/23/2024 Nurse Triage Department of Family Medicine, [facility], in [address] [phone] Avril Hensley R.N. Blepharitis from Last 3 Months Immunizations Name Administration [...] Romel voss Prostate cancer Paternal Grandfather Romel bipin Skin cancer Paternal Grandfather Romel bipin Stroke Paternal Grandmother Shreya bipin Relation Name [...] Answer Date Recorded PHQ-2 Score 0 11/16/2022 [facility] [place] [facility] Occupat ional Health - Occupational Stress [...] AM CDT Appointment Department of Radiology in [address] [phone] Verónica Rosado APRN, C.N.P. [address] [place] [phone] Discharge Disposition: Home or Self Care 08/27/2024 8:00 AM CDT Office Visit Department of Occupational Medicine in [address] [phone] Audrey Reyna, P.A.-C., M.S. [address] [phone] Discharge Disposition: Home or Self Care Health Maintenance Due Date Last Done Comments Hepatitis C Screening 2001 Depression Screening (Annual PHQ-2) 11/14/2023 COVID-19 Vaccine ( season) 2024 10/09/2021, 03/20/2021, 02/20/2021 Cervical Cancer Screening 01/14/2025 01/14/2022 Thyroid Stimulating Hormone (TSH) test for thyroid function 07/18/2025 07/18/2024, 07/29/2023, 04/10/2023, Additional history exists DTaP,Tdap,and Td Vaccines (10 - Td or Tdap) 07/13/2032 07/13/2022, 08/07/2012, 08/07/2012, Additional history exists Pneumococcal vaccine (0-64 years) Aged Out 04/30/2002, 02/21/2002, 2001, Additional history exists No longer eligible based on patient's age to complete this topic Varicella Vaccines Completed 03/06/2009, 08/13/2002 HPV Vaccines Completed 02/19/2013, 04/0 06/2013, 11/08/2012, Additional history exists Hepatitis B Vaccines Completed 01/30/2024, 08/13/2002, 2001, Additional history exists Medical Devices Implanted Type Area Solutions Consultant Device Identifier Shelf Expiration Date Model / [...] * Lipid Panel (07/18/2024 10:35 AM CDT) Triglycerides 76 mg/dL 07/18/2024 11:40 AM CDT [...] LAB BLOOD A DD-ON Performing Organization Address City/[facility] Co de Phone Number [facility] [address] [place] [address] * Magnesium (07/18/2024 10:35 AM CDT) Magnesium, S 2.2 1.7 - 2.3 mg/dL 07/18/2024 11:40 AM CDT DTL Blood (Blood, Venous) 07/18/2024 10:35 AM CDT 07/18/2024 11:16 AM CDT James Sanchez M.D. LAB BLOOD A DD-ON Performing Organization Address [facility]/ZIP Co de Phone Number [facility] 200 [place] [address] * Hemoglobin A1c (07/18/2024 10:35 AM CDT) Hemoglobin A1c, B 5.1 4.0 - 5.6 % 07/18/2024 12:02 PM CDT DTL Blood (Blood, Venous) 07/18/2024 10:35 AM CDT 07/18/2024 11:08 AM CDT James Sanchez M.D. LAB BLOOD A DD-ON [facility] [address] [place] [address], [facility] DTL [facility] [address] [place] [address] * (ABNORMAL) Basic Metabolic Panel (07/18/2024 10:35 [...] LAB BLOOD A DD-ON Performing Organization Address City/[facility]/ZIP Co de Phone Number [facility] 200 [place], [place] [address] [address] [place] [address] * Thyroid Function Bosque (07/18/2024 10:32 AM CDT) TSH, Sensitive 1.4 0.3 - 4.2 mIU/L 07/18/2024 3:19 PM CDT DTL Blood (Blood, Venous) 07/18/2024 10:32 AM CDT 07/18/2024 2:33 PM CDT James Sanchez M.D. LAB BLOOD A DD-ON Performing Organization Address City/[facility] Co de Phone Number [facility] 200 [place] [address], [facility] 200 [place] [address] from Last 3 Months Advance Directives For more information, please contact: [phone] * Full Code (Latest Code Status on File) Date Activated Date Inactivated Comments 07/18/2019 12:23 PM 07/18/2019 3:09 PM Question Answer Comments Full Code: Discussed Care Teams Web Specialist Relationship Specialty Start Date End Date Elsewhere, Pcp PCP - General Internal Medicine 08/04/23
--- OUTSIDE RECORDS SUMMARY | 2024-08-14 17:21 | XMS_ITS | Encounter Summary ---
Author Organization [facility] Address [address] [place] [address] Care Team Providers Care Rim Buster Name Role Phone Elsewhere, Pcp Primary Care Provider Unavailabl e Encounter Details Date Type Department Care Team (Latest Contact Info) Description 07/18/2024 10:00 AM CDT - 07/18/2024 11:59 PM CDT Hospital Encounter Department of Laboratory Medicine and Pathology, [facility] in [place], [place] [address] [place] [address] James Sanchez M.D. [address] [place] [address] Tachycardia Sinus Discharge Disposition: Home or Self Care Social [...] often do you attend chur ch or cheondoism services? 1 to 4 times [...] Date Recorded PHQ-2 Score 0 11/16/2022 [facility] Occupat ional [facility] - [...] your living situation today? I have a [facility] place to live 09/20/2023 Education Answer [...] PM CDT documented as of this encounter Medications at Time of Discharge [...] breakfast. metoprolol tartrate (LOPRESSOR) 25 mg tablet take one tablet by mouth twice a day 180 tablet 3 04/30/2024 pantoprazole (PROTONIX) 40 mg EC tablet TAKE 1 TABLET BY MOUTH ONCE DAILY ON AN EMPTY STOMACH 10/20/2021 documented as of this encounter Plan of Treatment Upcoming Encounters Date Type Department Care Team (Latest Contact Info) Description 08/22/2024 10:45 AM CDT Appointment Department of Radiology in [address] [phone] Verónica Rosado APRN, C.N.P. [address] [place] [phone] Discharge Disposition: Home or Self Care 08/27/2024 8:00 AM CDT Office Visit Department of Occupational Medicine in [address] [phone] Audrey Reyna, DonaldoA.-C., M.S. [address] [place] [phone] Discharge Disposition: Home or Self Care documented as of this encounter Procedures Procedure Name Priority Date/Time Associated Diagnosis Comments LIPID PANEL, S Routine 07/18/2024 10:35 AM CDT Tachycardia Sinus MAGNESIUM, S Routine 07/18/2024 10:35 AM CDT Tachycardia Sinus HEMOGLOBIN A1C, B Routine 07/18/2024 10: 35 AM CDT Tachycardia Sinus BASIC METABOLIC PANEL, S/P Routine 07/18/2024 10:35 AM CDT Tachycardia Sinus documented in this encounter Results * Magnesium (07/18/2024 10:35 AM CDT) Magnesium, S 2.2 1.7 - 2.3 mg/dL 07/18/2024 11:40 AM CDT DTL Blood (Blood, Venous) 07/18/2024 10:35 AM CDT 07/18/2024 11:16 AM CDT James Sanchez M.D. LAB BLOOD A DD-ON [facility] [address] [place] [address], [facility] 200 [place] [address] * (ABNORMAL) Basic Metabolic Panel (07/18/2024 10:35 [...] James Sanchez M.D. LAB BLOOD A DD-ON [facility] [address] [place] [address], [facility] [address] [address] * Hemoglobin A1c (07/18/2024 10:35 AM CDT) Hemoglobin A1c, B 5.1 4.0 - 5.6 % 07/18/2024 12:02 PM CDT DTL Blood (Blood, Venous) 07/18/2024 10:35 AM CDT 07/18/2024 11:08 AM CDT James Sanchez M.D. LAB BLOOD A DD-ON Performing Organization Address City/[facility] Co de Phone Number [facility] 200 [place] [address], [facility] 200 [place] [address] * Lipid Panel (07/18/2024 10:35 AM CDT) [...] James Sanchez M.D. LAB BLOOD A DD-ON [facility] [address] [place] [address], [facility] DTL [facility] [address] [place] [address] documented in this encounter Visit Diagnoses Diagnosis Tachycardia Sinus documented in this encounter Care Teams Rim Buster Relationship Specialty Start Date End Date Elsewhere, Pcp PCP - General Internal Medicine 08/04/23 documented as of this encounter
--- OUTSIDE RECORDS SUMMARY | 2024-08-14 17:21 | XMS_ITS | Encounter Summary ---
Author Organization [facility] Address [address] [place] [address] Care Team Providers Care Territory Sales Manager Medical Name Role Phone Sofia Chavis DO Primary Care Provider [phone]- [phone] Encounter Details Date Type Department Care Team (Late st Contact Info) Description 08/30/2021 HIM Manager [facility] Family Medicine [address] [place] [address] Casey Grayson MD [address] [place] [address] Social History Tobacco Use Types Packs/Day [...] you attend chur ch or anabaptist services? Never 06/01/2021 Do you belong to [...] medical care, and heating? Somewhat hard 06/01/2021 [facility] [place] [facility] Occupat ional [facility] [place] [facility] - [...] place to sleep or slept in a correction (including now)? Yes 06/01/2021 Depression (PHQ-9) Answer [...] Grayson MD jml P P Doc #: [id number] documented in this encounter Plan of Treatment Not on file documented as of this encounter Visit Diagnoses Not on filedocumented in this encounter Additional Health Concerns Infection Onset Date Last Indicated Resolved Time COVID-19 Rule Out 09/28/2021 09/28/2021 09/29/2021 12:38 PM [employer] COVID-19 Rule Out 12/14/2021 12/14/2021 12/15/2021 6:40 PM [employer] COVID-19 Rule Out 01/01/2022 01/01/2022 01/01/2022 10:04 AM [employer]BER Respiratory Rule-Out 01/01/2022 01/01/2022 022 10:03 AM [employer]BER documented as of this encounter Care Teams Territory Sales Manager Medical Relationship Specialty Start Date End Date Sofia Chavis DO [address] [place] [address] PCP - General Family Medicine 08/15/20 03/31/22 documented as of this encounter Additional Source Comments PLEASE NOTE: Replies to this message will not be received.[facility]
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
--- OUTSIDE RECORDS SUMMARY | 2024-08-14 17:22 | XMS_ITS | Encounter Summary ---
Author Organization [facility] Address [address] [place] [address] Care Team Providers Care Wind Operations Manager Name Role Phone Elsewhere, Pcp Primary Care Provider Unavailabl e Reason for Visit * Reason Onset Date Comments Blepharitis 06/23/2024 Encounter Details Date Type Department Care Team (Late st Contact Info) Description 06/23/2024 Nurse Triage Department of Family Medicine, [facility], in [address] [phone] Avril Hensley, RJameiNJamie [address] [place] [phone] Blepharitis Social History Tobacco Use Types Packs/Day Years [...] Answer Date Recorded PHQ-2 Score 0 11/16/2022 [facility] - [...] your living situation today? I have a [facility] place to live 09/20/2023 Education Answer [...] encounter Miscellaneous Notes * Telephone Encounter - Avril Hensley R.N. - 06/23/2024 12:48 PM CDT Chief Complaint / Reason for Call Patient is a 23 y.o. female calling regarding Blepharitis. Assessment Concern: Patient with bilateral eyelid swelling that started yesterday morning. She denies any new cosmetics, medications, or other substances. Present for: 2 days. Home cares tried: Patient tried Benadryl with adverse reaction. Calling to request: Schedule appointment. The recommended disposition is See a health care provider within 24 hours. Patient PCOD options: Patient has agreed to use [facility] to evaluate their symptoms and receive care if needed. Message including link to download the clement and basic instructions sent [employer] portal. Reason for Disposition [1] SEVERE eyelid swelling (i.e., shut or almost) AND [2] involves both eyes AND [3] itchy Protocols used: Eye - [id number] Care Advice Patient/Caregiver understands and will follow care advice?: Yes, able to teach back Eye - [id number]-UW Nurse Avril Churchill Jun 23, 2024 12:53 PM Care Advice SEE PCP WITHIN 24 HOURS LOCAL COLD: * Apply a cool, wet washcloth to the area for 20 minutes. * You can repeat this every hour as needed. ANTIHISTAMINE MEDICINES FOR ITCHING OR SWELLING: * You can take cetirizine, fexofenadine, or loratadine to reduce itching and swelling. * They are ydjn-stz-trxftsb (OTC) antihistamine medicines. You can buy them at a drugstore or grocery store. * CETIRIZINE (REACTINE, ZYRTEC): The adult dose is 10 mg. You take it once a day. Cetirizine is available in the [place] as Zyrtec and in [place] as Reactine. * FEXOFENADINE (JAKOB): In the [place], the adult dose is one 24-hour tablet (180 mg) once a day. In [place], the adult dose is one 24-hour tablet (120 mg) once a day. Or, you can take one 12-hour (60 mg) tablet 2 times a day. * LORATADINE (ALAVERT, CLARITIN): The adult dose is 10 mg. You take it once a day. Loratadine is available in the [place] as Alavert and Claritin; it is available in [place] as Claritin. CALL BACK IF: * You become worse documented in this encounter Plan of Treatment Upcoming Encounters Date Type Department Care Team (Latest Contact Info) Description 08/22/2024 10:45 AM CDT Appointment Department of Radiology in [address] [phone] Verónica Rosado APRN, C.N.P. [address] [place] [phone] Discharge Disposition: Home or Self Care 08/27/2024 8:00 AM CDT Office Visit Department of Occupational Medicine in [address] [place] [phone] Audrey Reyna P.A.-C., M.S. [address] [phone] Discharge Disposition: Home or Self Care documented as of this encounter Visit Diagnoses Not on filedocumented in this encounter Care Teams Wind Operations Manager Relationship Specialty Start Date End Date Elsewhere, Pcp PCP - General Internal Medicine 08/04/23 documented as of this encounter
[2024-08-14 18:12] VITALS: BP 124/88; PULSE 89; RESP 20
== END 2024-08-14 18:13 | disposition home or self-care (01) ==
PROVIDERS: Emergency Provider Family Medicine; PCP Nurse Practitioner Family
DX: G89.18 Other acute postprocedural pain (principal); N94.6 Dysmenorrhea, unspecified
CPT/HCPCS: J1171; 76830; 93976; 94761; 96374; 96375; 99284; J1885; J7030

== ENCOUNTER 2024-11-21 08:58 | Outpatient (CLI) | payer OTHER, SELFPAY ==
--- NOTE | 2024-11-21 09:15 | CRLHL7_ITS ---
For Patients: As a result of the Century Cures Act, medical imaging exams and procedure reports are released immediately into your electronic medical record. You may view this report before your referring provider. If you have questions, please contact your health care provider. CLINICAL HISTORY: Pelvic and perineal pain- possible ruptured cyst. TECHNIQUE: 2D rivera scale ultrasound. In addition color Doppler and spectral Doppler analysis was performed of the pelvis using a transabdominal and transvaginal approach. FINDINGS: The uterus measures 9.0 x 3.1 x 6.1 cm. IUD is present in good position within the endometrial canal. The right ovary measures 3.7 x 1.9 x 1.8 cm in size and the right ovary measures 3.6 x 1.8 x 2.8 cm. The ovaries demonstrate normal arterial and venous blood flow on color Doppler and spectral Doppler analysis. Fluid is present within the posterior cul-de-sac. Small residual cyst within the left ovary is present. IMPRESSION: Ruptured left ovarian cyst with moderate pelvic free fluid. Remainder unremarkable. No ovarian torsion. Good position of IUD within the endometrial canal. Dictated by Ramu Cornell MD @ 11/21/2024 1:16:13 PM (Electronically Signed)
== END 2024-11-21 08:59 | disposition home or self-care (01) ==
LOC: US 09:00
PROVIDERS: PCP Nurse Practitioner Family; Visit Provider Obstetrics & Gynecology
DX: R10.2 Pelvic and perineal pain (principal); N83.202 Unspecified ovarian cyst, left side
CPT/HCPCS: 76830; 76856; 93976

== ENCOUNTER 2024-11-22 08:59 | Outpatient (CLI) | payer OTHER, SELFPAY | END 2024-11-22 09:00 | disposition home or self-care (01) | PROVIDERS: PCP Nurse Practitioner Family; Visit Provider Obstetrics & Gynecology | DX: R00.0 Tachycardia, unspecified (principal); R55 Syncope and collapse; E03.1 Congenital hypothyroidism without goiter | CPT/HCPCS: 80048; 84443 ==

== ENCOUNTER 2025-05-31 09:19 | Day surgery (SDC) | payer OTHER, SELFPAY ==
[2025-05-31] VITALS (12 sets, daily range): BP systolic 96–125; BP diastolic 62–78; PULSE 68–95; RESP 14–16; TEMP 36.2–37; O2SAT 94–99; BMI 26.9
[2025-05-31] MEDS: LACTATED RINGERS 1000 ML 1,000 ML 100 ML IV (10:05)
[2025-05-31] MEDS: SODIUM CHLORIDE 0.9 % (FLUSH) 10 ML SYRINGE IVF (10:06)
[2025-05-31] MEDS: OXYMETAZOLINE 0.05% NASAL SPRAY 2 SPRAY NOSTRIL-B (10:07)
[2025-05-31] MEDS: BUPIVACAINE 0.5%/EPINEPHRINE 0.9 MG (30.9 ML) INJECTION (11:08)
[2025-05-31] MEDS: MUPIROCIN 1 GM PACKET 1 APPLIC TOPICAL (11:22)
--- NOTE | 2025-05-31 11:42 | P.ANES_ITS ---
Anesthesia Charges Start Date/Time Anesthesia Start Date: 05/31/25 Anesthesia Start Time: 10:55 Stop Date/Time Anesthesia Stop Date: 05/31/25 Anesthesia Stop Time: 11:41 Coding CPT Codes CPT Codes: ANESTH NOSE/SINUS SURGERY - 58605 ([id number]) P2 - PATIENT W/MILD SYST DISEASE, QX - TRUST AND ESTATES PARALEGAL SVC W/ MD MED DIRECTION, QK - PROFESSOR OF HISTORICAL THEOLOGY 2-4 CNCRNT ANES PROC
--- NOTE | 2025-05-31 11:42 | W.ANESCHARGE ---
Anesthesia Charges Start Date/Time Anesthesia Start Date: 05/31/25 Anesthesia Start Time: 10:55 Stop Date/Time Anesthesia Stop Date: 05/31/25 Anesthesia Stop Time: 11:41 Coding CPT Codes CPT Codes: ANESTH NOSE/SINUS SURGERY - 63384 ([id number]) P2 - PATIENT W/MILD SYST DISEASE, QX - OFFICE MACHINE INSTALLER SVC W/ MD MED DIRECTION, QK - ADMINISTRATIVE OFFICER 2-4 CNCRNT ANES PROC
--- NOTE | 2025-05-31 11:44 | P.ANES_ITS ---
Anesthesia Charges Start Date/Time Anesthesia Start Date: 05/31/25 Anesthesia Start Time: 10:55 Stop Date/Time Anesthesia Stop Date: 05/31/25 Anesthesia Stop Time: 11:41 Coding CPT Codes CPT Codes: ANESTH NOSE/SINUS SURGERY - 79930 ([id number]) QK - DIRECTOR OF PLANNING 2-4 CNCRNT ANES PROC, QX - AEROBICS INSTRUCTOR SVC W/ MD MED DIRECTION, P2 - PATIENT W/MILD SYST DISEASE
--- NOTE | 2025-05-31 11:44 | W.ANESCHARGE ---
Anesthesia Charges Start Date/Time Anesthesia Start Date: 05/31/25 Anesthesia Start Time: 10:55 Stop Date/Time Anesthesia Stop Date: 05/31/25 Anesthesia Stop Time: 11:41 Coding CPT Codes CPT Codes: ANESTH NOSE/SINUS SURGERY - 39596 ([id number]) QK - INVESTIGATION MANAGER 2-4 CNCRNT ANES PROC, QX - CIVIL GEOTECHNICAL ENGINEER SVC W/ MD MED DIRECTION, P2 - PATIENT W/MILD SYST DISEASE
--- NOTE | 2025-05-31 12:03 | W.PM.ENTPROC ---
Procedure Note Date of procedure: 05/31/25 Procedure: Preop diagnosis nasal obstruction, left deviated septum, acquired external nasal deformity due to trauma Postoperative diagnosis same Procedure nasal septoplasty, open reduction nasal fracture Under general trach anesthesia patient was prepped and draped in usual fashion nose injected decongested. A right hemitransfixion incision was made left anterior and mid posterior tunnels were created. A vertical incision was made through the cartilage and a right mid posterior tunnel created. The cartilaginous septum was freed from its inferior attachments and this allowed it to moved to midline. The hemitransfixion was closed with 2 4-0 chromic sutures and silastic stents secured with 3-0 nylon. A left IC incision was made and dissection carried out on top of the perichondrium to the nasal dorsal acquired deformity. This bony spur was then removed with a rasp. The incision was closed with 2 4-0 Vicryl sutures. A Merocel pack was placed on left-sided nose to maintain position of the septum. The patient procedure well was taken recovery in satisfactory condition. Blood loss less than 20 mL. Surgeon: Antonio De Los Santos MD
[2025-05-31] MEDS: ACETAMINOPHEN 325 MG TABLET PO (12:42)
== END 2025-05-31 13:28 | disposition home or self-care (01) ==
LOC: OR 09:20
PROVIDERS: PCP Nurse Practitioner Family; Visit Provider Otolaryngology
PROC: (CPT 30520; principal; 2025-05-31 10:15)
DX: J34.2 Deviated nasal septum (principal); M95.0 Acquired deformity of nose; S02.2XXA Fracture of nasal bones, initial encounter for closed fracture; J34.89 Other specified disorders of nose and nasal sinuses
CPT/HCPCS: 30520; 00160; A9270; J0330; J1100; J2250; J2405; J2704; J3010; J7120

== ENCOUNTER 2025-11-12 13:41 | Outpatient (CLI) | payer OTHER, SELFPAY ==
[2025-11-12 19:54] LABS: Bacterial Vaginosis* Negative (Negative); Candida glab/krus NOT DETECTED (No Detected)
[2025-11-12 20:25] LABS: Chlamydia DNA Amplified* NOT DETECTED (No Detected); GC DNA Amplified* NOT DETECTED (No Detected)
[2025-11-18 08:27] LABS: Pap Test Digital Imaging Done
== END 2025-11-12 13:42 | disposition home or self-care (01) ==
PROVIDERS: PCP Nurse Practitioner Family; Visit Provider Registered Nurse
DX: R10.20 Pelvic and perineal pain unspecified side (principal); Z11.3 Encounter for screening for infections with a predominantly sexual mode of transmission
CPT/HCPCS: 81513; 87086; 87481; 87491; 87591; 87661; 88141; 88142; 88175